=== PATIENT | female | born 1980 | race African-American/Black ===

== ENCOUNTER 2016-06-28 21:23 | Emergency (ER) ==
[2016-06-28] MEDS ORDERED: LABETALOL IV ONE (22:22)
--- NOTE | 2016-06-28 22:24 | ED EKG INTERP ---
EKG Interpretation - EKG Time of EKG reading by physician:: 21:40 EKG Read and Signed by:: Tristin Huffman EKG Interpretation (*Must complete 3 of following elements*): Abnormal Rate: 127 Rhythm: SR Heth: normal QRS: other (POSS LAE) IA Interval: normal ST Wave: normal Attestation - Scribe Verification/Attestation Scribe:: Jaylin Coulter Acting as Scribe for:: Tristin Huffman Scribe documention review:: This chart was documented by a scribe and accurately reflects the service the provider performed and the decisions made by the provider. Physician Attestation - Physician Attestation I, the provider, attest to the following statement:: Tristin Huffman Physician documentation Attestation:: This documentation recorded by the scribe accurately reflects the service I personally performed and the decisions made by me.
[2016-06-28 22:40] LABS: MANUAL DIFF NEEDED? NO
[2016-06-28 23:00] LABS: AGAP 12; ALBUMIN 3.9 g/dL (3.5-5.0); ALKALINE PHOSPHATASE 85 U/L (32-104); BUN 10 mg/dL (8-22); CALCIUM 9.3 mg/dL (8.8-10.2); CHLORIDE 97 mmol/L (98-107); CK PROFILE 56 U/L (24-173); COSMO 280; GOT 13 U/L (10-30); GPT 15 U/L (10-36); MAGNESIUM 1.9 mg/dL (1.5-2.7); POTASSIUM 3.5 mmol/L (3.5-5.1); SODIUM 134 mmol/L (136-145); TCO2 25 mmol/L (25-35); TOTAL PROTEIN 7.9 g/dL (6.3-8.3)
[2016-06-28 23:17] LABS: BASO% 0.1 % (0.0-0.8); EOS# 0.05 X1000 (0.0-0.7); EOS% 0.3 % (0.0-10.0); HEMATOCRIT 39.5 % (37.0-47.0); HEMOGLOBIN 13.3 g/dL (12.0-16.0); IMM GRAN# 0.03 X1000 (0.0-0.04); IMM GRAN% 0.2 % (0.0-0.5); LYMPH# 3.11 X1000 (1.2-3.4); LYMPH% 18.1 % (20.5-51.1); MCH 29.4 PG (27-31); MCHC 33.7 g/dL (33-37); MCV 87.4 FL (81-99); MPV 10.6 FL (7.4-10.4); NEUT% 74.3 % (42.2-75.2); PLT 269 X1000 (130-400); RBC 4.52 XMIL (4.2-5.4)
[2016-06-28 23:19] LABS: URINE SOURCE CLEAN CATCH
[2016-06-28 23:20] LABS: INR 1.01 (0.86-1.15); PROTIME 13.6 Seconds (12.1-15.5)
[2016-06-28 23:21] LABS: PTT PL 26.5 Seconds (22.6-43.9)
[2016-06-28 23:43] LABS: BILIRUBIN URINE NEGATIVE (NEGATIVE); BLOOD URINE 2+ (NEGATIVE); CLARITY CLEAR (CLEAR); COLOR YELLOW; LEUKOCYTES URINE 2+ (NEGATIVE); NITRITE URINE NEGATIVE (NEGATIVE); PH URINE 6.5; PROTEIN URINE 2+(100 mg/dL) mg/dL (NEGATIVE); SP GRAVITY URINE 1.015; URINE MICROSCOPIC NEEDED? YES; UROBILINOGEN URINE NORMAL
[2016-06-28] MEDS ORDERED: LABETALOL IV SCH (23:45)
[2016-06-28 23:47] LABS: URINE EPITHELIAL CELLS <10 /HPF (<10); URINE RBC 20-40 /HPF (<10); URINE WBC 20-40 /HPF (<10)
[2016-06-28 23:48] LABS: UR AMPHETAMINES QUAL NONE DETECTED (NONE DETECT); UR BARBITUATES QUAL NONE DETECTED (NONE DETECT); UR BENZODIAZEPIN QUAL NONE DETECTED (NONE DETECT); UR CANNABINOIDS QUAL NONE DETECTED (NONE DETECT); UR COCAINE QUAL NONE DETECTED (NONE DETECT); UR MDMA QUAL NONE DETECTED (NONE DETECT); UR METHADONE QUAL NONE DETECTED (NONE DETECT); UR METHAMPHETAMINE QUAL NONE DETECTED (NONE DETECT); UR OPIATES QUAL NONE DETECTED (NONE DETECT); UR OXYCODONE QUAL NONE DETECTED (NONE DETECT); UR PCP QUAL NONE DETECTED (NONE DETECT); UR TCA QUAL NONE DETECTED (NONE DETECT)
--- NOTE | 2016-06-29 00:08 | PROVIDER DOCUMENTATION ---
HPI-General Adult - General Chief Complaint: B/P Problems Stated Complaint: SORE THROAT,FACIAL SWELLING/H B/P Time Seen by Provider: 06/28/16 22:15 Source: patient Allergies/Adverse Reactions: Patient Allergies Allergy/AdvReac Type Severity Reaction Status Date / Time No Known Allergies Allergy Verified 06/28/16 21:32 Home Medications: Home Medication List Medication Instructions Recorded Confirmed Last Taken Type Glipizide [Glucotrol] 5 mg PO DAILY #0 tablet 03/31/13 06/28/16 Unknown Rx Lisinopril [Prinivil] 5 mg PO DAILY #0 tablet 03/31/13 06/28/16 Unknown Rx Metformin [Glucophage] 500 mg PO BID CC #0 tablet 03/31/13 06/28/16 Unknown Rx Metoprolol [Lopressor] 25 mg PO BID #60 tablet 03/31/13 06/28/16 Unknown Rx Sulfamethoxazole/Trimethoprim 2 each PO BID #40 tablet 06/29/16 Unknown Rx [Bactrim Ds Tablet] - History of Present Illness -Gen Adult Nature of Presenting Problems: PT IS A 36YOF PRESENTING TO THE ED C/O URI SYMPTOMS. PT STATES SHE HAS HAD A CRAWFORD , COUGH, CONGESTION, SORE THROAT AND DYSURIA WITH INCREASED FREQUENCY FOR ABOUT A WEEK NOW. PT DENIES FEVER BUT HAS BEEN ACHEY ALL OVER. PT IS A NON-COMPLIANT PT WITH HER BLOOD PRESSURE MEDICATIONS. PT IS HYPERTENSIVE UPON ARRIVAL. NO OTHER COMPLAINTS NOTED AT THIS TIME Location of Pain/Injury: reports: head, generalized Pain Radiation: reports: no radiation Quality of Pain: reports: aching Severity: reports: moderate Onset/Duration: reports: last week Timing: reports: still present Context/Activities at Onset: reports: light activity Modifying Factors: improves with: nothing Associated Symptoms: reports: cough, EENT symptoms, fatigue, fever/chills, headaches, malaise, sinus congestion/drainage, weakness. denies: chest pain, constipation, diaphoresis, dizziness, nausea, shortness of breath, pain with inspiration, vomiting Similar Symptoms Previously?: No Recently seen or treated by another doctor?: No Review of Systems - Adult - REVIEW OF SYSTEMS - ADULT Constitutional: reports: see HPI, chills, fatique. denies: fever Eyes: reports: no symptoms reported Ears, Nose, Mouth & Throat: reports: see HPI, sinus problem, throat pain. denies: mouth swelling Cardiovascular: reports: no symptoms reported Respiratory: reports: see HPI, cough, dyspnea on exertion. denies: shortness of breath, wheezing Gastrointestinal: reports: no symptoms reported Genitourinary: reports: see HPI, dysuria, frequency, urgency Musculoskeletal: reports: no symptoms reported Integumentary: reports: no symptoms reported Neurological: reports: see HPI, headache/migraines. denies: seizure, slurred speech, tremors Psychiatric: reports: no symptoms reported Endocrine: reports: no symptoms reported Hematologic/Lymphatic: reports: no symptoms reported Allergic/Immunologic: reports: no symptoms reported All Other Systems: Reviewed and Negative Past History - Adult - PAST MEDICAL HISTORY-ADULT Review of Records: reports: Old Records Reviewed, Nursing Assessment Review, Medications Reviewed, Social history reviewed & non-contributory. Major Childhood Illnesses: reports: denies history Cardiovascular: reports: denies history Respiratory: reports: denies history Gastrointestinal: reports: denies history Obstetrical/Gynecological: reports: denies history Genitourinary: reports: denies history Musculoskeletal: reports: denies history Neurological: reports: denies history Endocrine/Immune: reports: denies history Other Conditions: reports: denies history - IMMUNIZATION STATUS Childhood Immunizations: See Nurse Assessment Flu Vaccine: See Nurse Assessment - FAMILY HISTORY Family History: reviewed, not pertinent - SOCIAL HISTORY Smoking: denies, non-smoker Substance Use: none/never, denies Alcohol Use Frequency: never Living Situation: family Physical Exam-General - PHYSICAL EXAM-ADULT Initial Vital Signs Reviewed: Yes - CONSTITUTIONAL General Appearance: alert, moderate distress, obese. negative: appears well - EYES Eyes: PERRL/EOMI, pink conjunctivae, fundi clear, no AV nicking - HEAD, EARS, NOSE, MOUTH & THROAT HENMT: normocephalic/atraumatic, moist mucous membranes, TMs normal, pharynx normal, frontal tenderness, maxillary tenderness - NECK Neck: non-tender, full range of motion, supple, normal inspection - RESPIRATORY Respiratory: chest non-tender, lungs clear, normal breath sounds, no pleuratic chest pain, no respiratory distress, no accessory muscle use - CARDIOVASCULAR Cardiovascular: normal peripheral pulses, no edema, no gallop, no JVD, no murmur , tachycardia, other (HYPERTENSION) - GASTROINTESTINAL (ABDOMEN) Abdominal Exam: normal bowel sounds, non tender, soft, no organomegaly, no pulsatile mass - LYMPHATIC Lymphatic: no adenopathy - MUSCULOSKELETAL Back Exam: normal inspection, no CVA tenderness, no vertebral tenderness Extremity: normal range of motion, non-tender, normal gait, normal inspection, no pedal edema, no calf tenderness, normal capillary refill, pelvis stable - SKIN Integumentary: normal color, normal turgor, warm/dry - NEUROLOGIC Neurologic: dietary services manager II-XII nml as tested, grossly normal, no motor/sensory deficits - PSYCHIATRIC Psych/Mental Status: normal thought content, normal thought process, oriented x 3, anxious Progress - PLAN OF CARE/RESULTS Progress/Plan/Lab Results: Laboratory Tests 06/28/16 06/28/16 06/28/16 21:47 22:30 22:30 WBC RBC Hgb Hct MCV MCH MCHC RDW Std Deviation Plt Count MPV Immature Gran % (Auto) Neut % (Auto) Lymph % (Auto) [place] % (Auto) Eos % (Auto) Baso % (Auto) Immature Gran # (Auto) Neut # (Auto) Lymph # (Auto) [place] # (Auto) Eos # (Auto) Baso # (Auto) PT INR APTT (Factor Assay) Sodium 134 L Potassium 3.5 Chloride 97 L Carbon Dioxide 25 Anion Gap 12 BUN 10 Creatinine 0.7 Estimated GFR/1.73 m2 > 60 BUN/Creatinine Ratio 14 Glucose 320 H POC Glucose 287 H Calculated Osmolality 280 Calcium 9.3 Magnesium 1.9 Total Bilirubin 0.40 AST 13 ALT 15 Alkaline Phosphatase 85 Creatine Kinase 56 Troponin T < 0.010 [id number]-[id number] Pept Total Protein 7.9 Albumin 3.9 Globulin 4.0 Albumin/Globulin Ratio 1.0 Urine Source Urine Color Urine Clarity Urine pH Ur Specific [place] Urine Protein Urine Ketones Urine Blood Urine Nitrite Urine Bilirubin Urine Urobilinogen Urine Microscopic RBC Urine WBC Urine Microscopic WBC Ur Epithelial Cells Urine Bacteria Urine Glucose Urine Test Urine Opiates Screen Ur Oxycodone Screen Urine Methadone Screen Ur Barbituates Screen Ur Tricyclics Screen Ur Phencyclidine Scrn Ur Amphetamines Screen U Methamphetamines Scrn Urine MDMA Screen U Benzodiazepines Scrn Urine Cocaine Screen U Cannabinoids Screen Plasma/Serum Ethyl Alc 06/28/16 06/28/16 06/28/16 22:30 22:30 22:30 WBC 17.22 H RBC 4.52 Hgb 13.3 Hct 39.5 MCV 87.4 MCH 29.4 MCHC 33.7 RDW Std Deviation 12.7 Plt Count 269 MPV 10.6 H Immature Gran % (Auto) 0.2 Neut % (Auto) 74.3 Lymph % (Auto) 18.1 L [place] % (Auto) 7.0 Eos % (Auto) 0.3 Baso % (Auto) 0.1 Immature Gran # (Auto) 0.03 Neut # (Auto) 12.81 H Lymph # (Auto) 3.11 [place] # (Auto) 1.20 H Eos # (Auto) 0.05 Baso # (Auto) 0.02 PT 13.6 INR 1.01 APTT (Factor Assay) 26.5 Sodium Potassium Chloride Carbon Dioxide Anion Gap BUN Creatinine Estimated GFR/1.73 m2 BUN/Creatinine Ratio Glucose POC Glucose Calculated Osmolality Calcium Magnesium Total Bilirubin AST ALT Alkaline Phosphatase Creatine Kinase Troponin T [id number] Pept 303 H Total Protein Albumin Globulin Albumin/Globulin Ratio Urine Source Urine Color Urine Clarity Urine pH Ur Specific [place] Urine Protein Urine Ketones Urine Blood Urine Nitrite Urine Bilirubin Urine Urobilinogen Urine Microscopic RBC Urine WBC Urine Microscopic WBC Ur Epithelial Cells Urine Bacteria Urine Glucose Urine Test Urine Opiates Screen Ur Oxycodone Screen Urine Methadone Screen Ur Barbituates Screen Ur Tricyclics Screen Ur Phencyclidine Scrn Ur Amphetamines Screen U Methamphetamines Scrn Urine MDMA Screen U Benzodiazepines Scrn Urine Cocaine Screen U Cannabinoids Screen Plasma/Serum Ethyl Alc 06/28/16 06/28/16 06/28/16 22:30 22:59 22:59 WBC RBC Hgb Hct MCV MCH MCHC RDW Std Deviation Plt Count MPV Immature Gran % (Auto) Neut % (Auto) Lymph % (Auto) [place] % (Auto) Eos % (Auto) Baso % (Auto) Immature Gran # (Auto) Neut # (Auto) Lymph # (Auto) [place] # (Auto) Eos # (Auto) Baso # (Auto) PT INR APTT (Factor Assay) Sodium Potassium Chloride Carbon Dioxide Anion Gap BUN Creatinine Estimated GFR/1.73 m2 BUN/Creatinine Ratio Glucose POC Glucose Calculated Osmolality Calcium Magnesium Total Bilirubin AST ALT Alkaline Phosphatase Creatine Kinase Troponin T [id number] Pept Total Protein Albumin Globulin Albumin/Globulin Ratio Urine Source CLEAN CATCH Urine Color YELLOW Urine Clarity CLEAR Urine pH 6.5 Ur Specific [place] 1.015 Urine Protein 2+(100 mg/dL) A Urine Ketones TRACE Urine Blood 2+ A Urine Nitrite NEGATIVE Urine Bilirubin NEGATIVE Urine Urobilinogen NORMAL Urine Microscopic RBC 20-40 A Urine WBC 2+ A Urine Microscopic WBC 20-40 A Ur Epithelial Cells <10 Urine Bacteria 3+ Urine Glucose 3+(500 mg/dL) A Urine Test NEGATIVE Urine Opiates Screen Ur Oxycodone Screen Urine Methadone Screen Ur Barbituates Screen Ur Tricyclics Screen Ur Phencyclidine Scrn Ur Amphetamines Screen U Methamphetamines Scrn Urine MDMA Screen U Benzodiazepines Scrn Urine Cocaine Screen U Cannabinoids Screen Plasma/Serum Ethyl Alc 06/28/16 22:59 WBC RBC Hgb Hct MCV MCH MCHC RDW Std Deviation Plt Count MPV Immature Gran % (Auto) Neut % (Auto) Lymph % (Auto) [place] % (Auto) Eos % (Auto) Baso % (Auto) Immature Gran # (Auto) Neut # (Auto) Lymph # (Auto) [place] # (Auto) Eos # (Auto) Baso # (Auto) PT INR APTT (Factor Assay) Sodium Potassium Chloride Carbon Dioxide Anion Gap BUN Creatinine Estimated GFR/1.73 m2 BUN/Creatinine Ratio Glucose POC Glucose Calculated Osmolality Calcium Magnesium Total Bilirubin AST ALT Alkaline Phosphatase Creatine Kinase Troponin T [id number] Pept Total Protein Albumin Globulin Albumin/Globulin Ratio Urine Source Urine Color Urine Clarity Urine pH Ur Specific [place] Urine Protein Urine Ketones Urine Blood Urine Nitrite Urine Bilirubin Urine Urobilinogen Urine Microscopic RBC Urine WBC Urine Microscopic WBC Ur Epithelial Cells Urine Bacteria Urine Glucose Urine Test Urine Opiates Screen NONE DETECTED Ur Oxycodone Screen NONE DETECTED Urine Methadone Screen NONE DETECTED Ur Barbituates Screen NONE DETECTED Ur Tricyclics Screen NONE DETECTED Ur Phencyclidine Scrn NONE DETECTED Ur Amphetamines Screen NONE DETECTED U Methamphetamines Scrn NONE DETECTED Urine MDMA Screen NONE DETECTED U Benzodiazepines Scrn NONE DETECTED Urine Cocaine Screen NONE DETECTED U Cannabinoids Screen NONE DETECTED Plasma/Serum Ethyl Alc Orders Category Date Time Status Cardiac Monitoring DIRECTED Care 06/28/16 22:20 Active Fingerstick Blood Sugar [FSBS/Accucheck Result] NOW Care 06/28/16 21:42 Active Oxygen Therapy- ED Nursing DIRECTED Care 06/28/16 22:20 Active Saline Loc NOW Care 06/28/16 22:20 Active CHEST-2 VIEWS [RAD] Stat Exams 06/28/16 22:20 Taken HEAD W/O CONTRAST [CT] Stat Exams 06/28/16 22:22 Taken ALCOHOL BLOOD Stat Lab 06/28/16 22:30 Completed CBC WITH ELECTRONIC DIFF [HEME] Stat Lab 06/28/16 22:30 Completed CK PROFILE [SP CHEM] Stat Lab 06/28/16 22:30 Completed COMPREHENSIVE METABOLIC PANEL [CHEM] Stat Lab 06/28/16 22:30 Completed MAGNESIUM [CHEM] Stat Lab 06/28/16 22:30 Completed TEST-URINE [PREG] Stat Lab 06/28/16 22:59 Completed PRO B-NATRIURETIC PEPTIDE Stat Lab 06/28/16 22:30 Completed PROTIME WITH INR PL [COAG] Stat Lab 06/28/16 22:[address] [COAG] Stat Lab 06/28/16 22:30 Completed TROPONIN T Stat Lab 06/28/16 22:[address] [URINALYSIS] Stat Lab 06/28/16 22:59 Completed URINE DRUG SCREEN PL Stat Lab 06/28/16 22:59 Completed URINE MICROSCOPIC [URINALYSIS] Stat Lab 06/28/16 22:59 Completed Labetalol Med 06/28/16 23:45 Active 20 mg IV DIRECTED Labetalol Med 06/28/16 22:22 Discontinued 20 mg IV NOW ONE EKG [EKG] Stat Ther 06/28/16 21:38 Ordered EKG [EKG] Stat Ther 06/28/16 22:20 Ordered Vital Signs - 24 hr 06/28/16 06/28/16 21:26 21:35 Temperature 98.2 F Pulse Rate 129 H Respiratory 20 Rate Blood Pressure 208/131 209/128 O2 Sat by Pulse 97 Oximetry - XRAY 1 XRAY: Bilateral XRAY Study: Chest (NAD - SOUTH) - CT/MRI 1 CT Study: Head (SINUSITIS) Departure - Departure Time of Disposition Order: 00:07 DIAGNOSIS: Uncontrolled hypertension Sinusitis Qualifiers: Sinusitis location: unspecified location Chronicity: acute Recurrence: not specified as recurrent Qualified Code(s): J01.90 - Acute sinusitis, unspecified UTI (urinary tract infection) Qualifiers: Urinary tract infection type: site unspecified Hematuria presence: without hematuria Qualified Code(s): N39.0 - Urinary tract infection, site not specified Disposition: HOME 01 Certified Medical Emergency: Emergent Condition: Stable Additional Instructions: ED Follow Up Instructions: You have been treated by a care provider in the Emergency Department. These instructions are being provided to you so you can have an understanding of how to care for yourself upon discharge. Upon discharge from the Emergency Department, you are responsible for making arrangements for follow-up care by a physician of your choice. Take all prescribed medications as directed. Return to the Emergency Department immediately for any new or worsening symptoms. You may call the Physician Referral phone number at [phone] to obtain a list of Physicians who are taking new patients. Prescriptions: Sulfamethoxazole/Trimethoprim [Bactrim Ds Tablet] 2 each PO BID #40 tablet Referrals: None,PCP [Primary Care Provider] - Attestation - Scribe Verification/Attestation Scribe:: Jaylin Coulter (') Acting as Scribe for:: Tristin South Scribe documention review:: This chart was documented by a scribe and accurately reflects the service the provider performed and the decisions made by the provider. Physician Attestation - Physician Attestation I, the provider, attest to the following statement:: Tristin South Physician documentation Attestation:: This documentation recorded by the scribe accurately reflects the service I personally performed and the decisions made by me.
[2016-06-29 01:07] VITALS: BP 149/100
--- NOTE | 2016-06-29 06:31 | EKG Report ---
Test Performed on : 06/28/2016 9:39:33 PM Test Reason : chest pain Blood Pressure : / mmHG Vent. Rate : 127 BPM Atrial Rate : 127 BPM P-R Int : 132 ms QRS Dur : 068 ms QT Int : 322 ms P-R-T Axes : 061 053 053 degrees QTc Int : 467 ms Sinus tachycardia. Possible Left atrial enlargement Borderline ECG When compared with ECG of 29-MAR-2013 16:18, (Unconfirmed) No significant change was found Unconfirmed Result
--- NOTE | 2016-06-29 13:02 | Diag Imaging Result Document ---
PROCEDURE NAME: HEAD W/O CONTRAST - 06/28/2016 CT HEAD WITHOUT CONTRAST: TECHNIQUE: A dose reduction protocol was used. COMPARISON: No comparison exam. FINDINGS: There is no evidence of hemorrhage, mass effect, or midline shift. 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 There is no evidence of infarct, although acute infarcts may not be immediately visible. IMPRESSION: No visible acute intracranial abnormality. No hemorrhage or mass effect. A [facility] physician provided preliminary results at 12:00 a.m. on 06/29/2016.
--- NOTE | 2016-06-29 13:09 | Diag Imaging Result Document ---
PROCEDURE NAME: CHEST-2 VIEWS - 06/28/2016 CHEST, 2 VIEWS: COMPARISON: 03/29/2013. FINDINGS: Heart size appears upper normal and mildly increased compared to the previous exam. There is mild prominence of central markings which may be chronic or may relate to recurrent mild bronchitis. There is mild basilar linear atelectasis. There is no consolidation, pleural effusion, or pneumothorax identified. IMPRESSION: Mild increase in heart size, which appears upper normal. Questionable bronchitis. No evidence of pneumonia.
== END 2016-06-29 01:06 | disposition home or self-care (01) ==
LOC: P.ED 21:23
DX: J01.90 Acute sinusitis, unspecified (principal); N39.0 Urinary tract infection, site not specified; I10 Essential (primary) hypertension; R94.31 Abnormal electrocardiogram [ECG] [EKG]; J02.9 Acute pharyngitis, unspecified; R22.0 Localized swelling, mass and lump, head; R51 Headache; R05 Cough; R09.81 Nasal congestion; R30.0 Dysuria; R35.0 Frequency of micturition; R53.83 Other fatigue; R68.83 Chills (without fever); R53.81 Other malaise; R53.1 Weakness; R06.00 Dyspnea, unspecified; R39.15 Urgency of urination; J34.89 Other specified disorders of nose and nasal sinuses; R00.0 Tachycardia, unspecified; Z79.899 Other long term (current) drug therapy
CPT/HCPCS: 70450; 71020; 80053; 80305; 81001; 81025; 82550; 82948; 83735; 83880; 84484; 85025; 85610; 85730; 93005; 96374; 96376; G0480; 80320

== ENCOUNTER 2016-06-29 15:49 | Emergency (ER) | END 2016-06-29 16:22 | disposition left against medical advice (07) | LOC: ED 15:49 | DX: R22.0 Localized swelling, mass and lump, head (principal); R10.9 Unspecified abdominal pain; R03.0 Elevated blood-pressure reading, without diagnosis of hypertension ==

== ENCOUNTER 2019-04-25 19:06 | Inpatient (IN) ==
[2019-04-25] MEDS ORDERED: NITROGLYCERIN TOP ONE (19:16)
--- NOTE | 2019-04-25 19:29 | PROVIDER DOCUMENTATION ---
This chart was entered by Beatriz Fisher Scribe, acting as scribe for Ion Rodgers MD. HPI-Chest Pain - General Stated Complaint: sob Time Seen by Provider: 04/25/19 19:08 Source: patient, EMS Allergies/Adverse Reactions: Patient Allergies Allergy/AdvReac Type Severity Reaction Status Date / Time No Known Allergies Allergy Verified 04/25/19 20:32 Home Medications: Home Medication List Medication Instructions Recorded Confirmed Last Taken Type Metformin [Glucophage] 500 mg PO BID CC #60 tab 07/12/17 04/26/19 04/25/19 17:00 Rx Potassium Chloride E.r. [Klor-Con] 10 meq PO DAILY #30 tab 07/12/17 04/26/19 04/25/19 08:00 Rx Blood Sugar Diagnostic [Test 1 ea AC + HS #120 ea 07/13/17 04/25/19 Unknown Rx Strips] Blood-Glucose Meter [Blood Glucose 1 ea MC AC + HS #1 ea 07/13/17 04/25/19 Unknown Rx Meter] Furosemide [Lasix] 40 mg PO DAILY 08/16/17 04/26/19 04/25/19 08:00 History ATORVAstatin [Lipitor] 1 tab PO HS 04/26/19 04/26/19 Unknown History Amiodarone [Cordarone] 1 tab PO DAILY 04/26/19 04/26/19 Unknown History Glipizide E.r. [Glucotrol Xl] 5 mg PO BID 04/26/19 04/26/19 Unknown History Pantoprazole [Protonix] 40 mg PO DAILY@0700 04/26/19 04/26/19 Unknown History - History of Present Illness-CP Nature of Presenting Problem: pt is a 39yobf presenting w/ems to er w/cc cp and sob starting 2 days ago. pt has had 4 baby aspirin today at home and nitro enroute. pt has hx of [place] and stents last year, htn, and dm. follow by [facility] heart [facility]. pain is 7-8/10. Severity in ED: mild Onset/Duration: 2 days ago Timing: still present Context/Activities at Onset: reports: none Modifying Factors: improves with: nothing Associated Symptoms: reports: shortness of breath Nitro Today/Relief: 0.4 mg x 1, provided by EMS Aspirin Treatment Today: 81 mg x 4 Prior Chest Pain/Cardiac Workup: reports: heart attack, other (stents) Review of Systems - Adult - REVIEW OF SYSTEMS - ADULT Constitutional: reports: no symptoms reported. denies: fever, fatique, night sweats Eyes: reports: no symptoms reported Ears, Nose, Mouth & Throat: reports: no symptoms reported Cardiovascular: reports: see HPI, chest pain. denies: heart murmur, irregular heart rate, palpitations Respiratory: reports: see HPI, shortness of breath. denies: chronic cough, cough, pleurisy Gastrointestinal: reports: no symptoms reported Genitourinary: reports: no symptoms reported Musculoskeletal: reports: no symptoms reported Integumentary: reports: no symptoms reported Neurological: reports: no symptoms reported Psychiatric: reports: no symptoms reported Endocrine: reports: no symptoms reported Hematologic/Lymphatic: reports: no symptoms reported Allergic/Immunologic: reports: no symptoms reported All Other Systems: Reviewed and Negative Past History - Adult - PAST MEDICAL HISTORY-ADULT Review of Records: reports: Nursing Assessment Review, Medications Reviewed, Social history reviewed & non-contributory. Major Childhood Illnesses: reports: denies history Cardiovascular: reports: CHF, HTN, hyperlipidemia, [place] Respiratory: reports: denies history Gastrointestinal: reports: denies history Obstetrical/Gynecological: reports: denies history Genitourinary: reports: denies history Musculoskeletal: reports: denies history Neurological: reports: denies history Endocrine/Immune: reports: Diabetes Other Conditions: reports: denies history - PRIOR SURGERIES/PROCEDURES Surgical/Procedure History: reports: cardiac stent, hysterectomy, BTL - IMMUNIZATION STATUS Childhood Immunizations: See Nurse Assessment Flu Vaccine: See Nurse Assessment - FAMILY HISTORY Family History: reviewed, not pertinent - SOCIAL HISTORY Smoking: non-smoker Substance Use: none/never Physical Exam-General - PHYSICAL EXAM-ADULT Initial Vital Signs Reviewed: Yes - CONSTITUTIONAL General Appearance: appears well, alert, no apparent distress, obese. negative: lethargic, slow to respond, obtunded - EYES Eyes: PERRL/EOMI, pink conjunctivae - HEAD, EARS, NOSE, MOUTH & THROAT HENMT: normocephalic/atraumatic, moist mucous membranes, normal ENT inspection - NECK Neck: non-tender, full range of motion, supple, normal inspection - RESPIRATORY Respiratory: chest non-tender, no pleuratic chest pain, no respiratory distress, no accessory muscle use, decreased breath sounds (dminished), rales (basular bilat). negative: lungs clear, normal breath sounds, accessory muscle use, crackles, stridor, wheezing - CARDIOVASCULAR Cardiovascular: normal peripheral pulses, regular rate, rhythm, no gallop, no JVD, no murmur. negative: no edema, bradycardia, tachycardia, extra beats - GASTROINTESTINAL (ABDOMEN) Abdominal Exam: normal bowel sounds, non tender, soft - MUSCULOSKELETAL Back Exam: normal inspection Extremity: normal range of motion, non-tender, normal inspection, no pedal edema , no calf tenderness, normal capillary refill, pelvis stable, swelling (in bilat fingertips). negative: deformity, erythema, pedal edema, slow capillary refill - SKIN Integumentary: normal color, normal turgor, warm/dry - NEUROLOGIC Neurologic: visitor services assistant II-XII nml as tested, grossly normal, no motor/sensory deficits - PSYCHIATRIC Psych/Mental Status: normal mood/affect, normal thought content, normal thought process, oriented x 3 Progress - PLAN OF CARE/RESULTS Progress/Plan/Lab Results: Orders Category Date Time Status Admit - [facility] Routine AdmDCTranf 04/25/19 21:42 Active Activity - Strict Bedrest ORDERED Care 04/25/19 21:42 Completed Call Admitting on Arrival AT ADMISSION Care 04/25/19 21:44 Completed Cardiac Monitoring DIRECTED Care 04/25/19 19:17 Completed FSBS/Accucheck Result Q1H Care 04/25/19 20:48 Completed Resuscitation Status Routine Care 04/25/19 21:42 Ordered Vital Signs Order Q 4-HR ASSESS Care 04/25/19 21:42 Completed Z-Document. for Tele Applied ORDERED Care 04/25/19 21:44 Completed CHEST-PORTABLE [RAD] Stat Exams 04/25/19 19:53 Completed BLOOD CULTURE [BLDCUL] Stat Lab 04/25/19 21:05 Results CBC WITH ELECTRONIC DIFF [HEME] Stat Lab 04/25/19 19:45 Completed CK PROFILE [SP CHEM] Stat Lab 04/25/19 19:45 Completed CMP [COMPREHENSIVE METABOLIC PANEL] [CHEM] Stat Lab 04/25/19 19:45 Completed LACTATE, PLASMA [CHEM] Stat Lab 04/25/19 21:05 Completed PT [PROTIME WITH INR] [COAG] Stat Lab 04/25/19 19:45 Completed TROPONIN T Q4H Lab 04/25/19 21:05 Completed TROPONIN T Q4H Lab 04/26/19 03:17 Completed TROPONIN T Q4H Lab 04/26/19 06:24 Completed TROPONIN T Stat Lab 04/25/19 19:45 Completed bnp [PRO B-NATRIURETIC PEPTIDE] Stat Lab 04/25/19 19:45 Completed Azithromycin 500 mg/Ns [Zithromax 500 mg/Ns] Med 04/25/19 20:49 Discontinued 500 mg in 250 ml IV NOW Azithromycin 500 mg/Ns [Zithromax 500 mg/Ns] Med 04/26/19 22:00 Active 500 mg in 250 ml IV Q24H CefTRIAXONE [Rocephin] 1 gm Med 04/25/19 20:48 Discontinued 0.9% Sodium Chloride Inj [Ns] 50 ml IV NOW CefTRIAXONE [Rocephin] 1 gm Med 04/26/19 21:00 Active 0.9% Sodium Chloride Inj [Ns] 50 ml IV Q24H Furosemide [Lasix] Med 04/25/19 22:00 Active 40 mg IV Q12H Insulin Human Regular ([place] [Humulin R ([place])] Med 04/25/19 21:13 Discontinued 15 units .ROUTE .STK-MED ONE Insulin Human Regular ([place] [Humulin R ([place])] Med 04/25/19 21:48 Active See Protocol SUBQ PRN PRN Insulin Human Regular [Humulin R] Med 04/25/19 20:47 Discontinued 15 unit IV NOW ONE Morphine Med 04/25/19 21:42 Active 2 mg IV Q2H PRN PRN Nitroglycerin Med 04/25/19 19:16 Discontinued 1 inch TOP NOW ONE Ondansetron Odt [Zofran Odt] Med 04/25/19 21:42 Active 4 mg PO Q6H PRN PRN Potassium Chloride E.r. [Klor-Con] Med 04/25/19 20:47 Discontinued 40 meq PO NOW ONE Oxygen Device Routine Oth 04/25/19 21:44 Completed Telemetry [OM.EQ] Routine Oth 04/25/19 21:42 Active EKG [EKG] Stat Ther 04/25/19 19:17 Draft Transfer/Admit Order [TRANSFER] Routine Transfer 04/25/19 21:47 Completed Result Diagrams: 04/25/19 19:45 04/26/19 09:50 - XRAY 1 XRAY Study: Chest Impression: Abnormal, See EMR Report (EXAM: CHEST-PORTABLE 04/25/2019 HISTORY: cough,sob TECHNIQUE: Erect AP portable at 2006 COMMENT: There are sternotomy wires. There is ill-defined alveolar opacity over the right lower lobe which has diminished somewhat since 08/25/2017. IMPRESSION: Right lower lobe pneumonia. Electronically signed by Santiago Putnam 04/25/2019 8:22 PM) Departure - Departure Date of Disposition Decision: 04/26/19 Time of Disposition Decision: 07:32 DIAGNOSIS: RLL pneumonia Qualifiers: Pneumonia type: due to unspecified organism Qualified Code(s): J18.1 - Lobar pneumonia, unspecified organism Uncontrolled diabetes mellitus Qualifiers: Diabetes mellitus type: other specified (including QUETA) Glycemic state: with hyperglycemia Qualified Code(s): E13.65 - Other specified diabetes mellitus with hyperglycemia Chest pain Qualifiers: Chest pain type: unspecified Qualified Code(s): R07.9 - Chest pain, unspecified Disposition: ADMITTED INPATIENT 09 Certified Medical Emergency: Emergent Condition: Stable - Critical Care Note This patient required my direct & personal management of CC.: No Attestation - Physician/ MEGGAN Attestation Patient care was provided by Advanced Practice Provider:: No The physician spent face to face time with patient:: Yes Advanced Practice Provider documentation review:: Supervising physician onsite and consulted in the evaluation and care of this patient. The physician did have a face to face encounter with the patient. This chart was documented by the indicated scribe, (Beatriz Fisher Scribe) and accurately reflects the services I performed and decisions made by me, Ion Rodgers MD, as attested by the provider's signature.
[2019-04-25 20:00] LABS: BASO# 0.01 X1000 (0.0-0.2); BASO% 0.1 % (0.0-0.8); HEMATOCRIT 37.3 % (37.0-47.0); IMM GRAN# 0.04 X1000 (0.0-0.04); IMM GRAN% 0.3 % (0.0-0.5); LYMPH# 0.93 X1000 (1.2-3.4); LYMPH% 6.9 % (20.5-51.1); MCH 29.6 PG (27-31); MCHC 32.2 g/dL (33-37); MCV 91.9 FL (81-99); MONO# 0.86 X1000 (0.11-0.59); MONO% 6.4 % (1.7-9.3); MPV 11.5 FL (7.4-10.4); NEUT# 11.68 X1000 (1.4-6.5); NEUT% 86.3 % (42.2-75.2); PLT 194 X1000 (130-400); RBC 4.06 XMIL (4.2-5.4); RDW 12.9 % (11.5-14.5); WBC 13.52 X1000 (4.8-10.8)
[2019-04-25 20:25] LABS: INR 0.94
--- NOTE | 2019-04-25 20:25 | Diag Imaging Result Doc PS360 ---
EXAM: CHEST-PORTABLE 04/25/2019 HISTORY: cough,sob TECHNIQUE: Erect AP portable at 2006 COMMENT: There are sternotomy wires. There is ill-defined alveolar opacity over the right lower lobe which has diminished somewhat since 08/25/2017. IMPRESSION: Right lower lobe pneumonia. Electronically signed by Santiago Putnam 04/25/2019 8:22 PM
[2019-04-25 20:34] LABS: ALBUMIN 3.3 g/dL (3.5-5.0); CALCIUM 8.2 mg/dL (8.8-10.2); CREATININE 1.3 mg/dL (0.5-0.9); POTASSIUM 3.3 mmol/L (3.5-5.1); TOTAL BILIRUBIN 0.4 mg/dL (0.20-1.00); TOTAL PROTEIN 7.4 g/dL (6.3-8.3)
[2019-04-25] MEDS ORDERED: HUMULIN R IV ONE (20:47)
[2019-04-25] MEDS ORDERED: KLOR-CON PO ONE (20:47)
[2019-04-25] MEDS ORDERED: ROCEPHIN 1 GM in NS 50 ML IV ONE (20:48)
[2019-04-25] MEDS ORDERED: ZITHROMAX 500 MG/NS 500 MG/250 ML IVPB IV ONE (20:49)
[2019-04-25] MEDS ORDERED: HUMULIN R (PARKWAY) ONE (21:13)
[2019-04-25] MEDS ORDERED: ZOFRAN ODT PO PRN (21:42)
[2019-04-25] MEDS: LASIX IV SCH (23:44)
--- NOTE | 2019-04-26 02:36 | EKG Report ---
Test Performed on : 04/25/2019 7:32:15 PM Test Reason : pain Blood Pressure : / mmHG Vent. Rate : 119 BPM Atrial Rate : 119 BPM P-R Int : 132 ms QRS Dur : 088 ms QT Int : 272 ms P-R-T Axes : 108 -24 066 degrees QTc Int : [address] & T wave abnormality, consider inferior ischemia Abnormal ECG When compared with ECG of 25-AUG-2017 02:06, fusion complexes are no longer present premature ventricular complexes. are no longer present ST less depressed in Anterolateral leads T wave inversion now evident in Inferior leads Nonspecific T wave abnormality, worse in Anterolateral leads Unconfirmed Result
[2019-04-26] MEDS ORDERED: PNEUMOVAX 23 IM ONE (08:18)
[2019-04-26] MEDS ORDERED: FLU VACCINE IM ONE (08:18)
--- NOTE | 2019-04-26 10:02 | EKG Report ---
Test Performed on : 04/26/2019 09:50:09 AM Test Reason : CP Blood Pressure : / mmHG Vent. Rate : 118 BPM Atrial Rate : 118 BPM P-R Int : 152 ms QRS Dur : 074 ms QT Int : 332 ms P-R-T Axes : 045 -61 085 degrees QTc Int : 465 ms Sinus tachycardia. Left axis deviation Nonspecific ST and T wave abnormality Abnormal ECG When compared with ECG of 25-APR-2019 19:32, (Unconfirmed) No significant change was found Unconfirmed Result
[2019-04-26 10:27] LABS: ALBUMIN 3.3 g/dL (3.5-5.0); CALCIUM 8.5 mg/dL (8.8-10.2); CREATININE 1.5 mg/dL (0.5-0.9); PHOSPHORUS 2.6 mg/dL (2.7-4.5)
[2019-04-26] MEDS: LASIX IV SCH ×2 (10:37→21:13)
[2019-04-26] MEDS: MORPHINE IV PRN (10:37)
[2019-04-26] MEDS: DUONEB (A & A) INH PRN ×2 (12:05→15:25)
[2019-04-26] MEDS: HUMULIN R (PARKWAY) SUBQ PRN ×2 (12:39→15:01)
--- NOTE | 2019-04-26 14:33 | HISTORY AND PHYSICAL ---
CHIEF COMPLAINT: Left-sided chest pain, shortness of breath and cough, along with bilateral upper and lower extremity edema. HISTORY OF PRESENT ILLNESS: This is a 39-year-old female with a prior history of systolic congestive heart failure, hypertension, diabetes, and morbid obesity. She presents to the emergency room complaining of shortness of breath, cough, congestion, along with a productive cough with white secretions. She states this started about 48 hours prior. She denied any orthopnea or PND. Over the last 3 to 4 days she has noticed that she has had edema to all 4 extremities. She does feel she may have had a little extra salt intake over the holidays. PAST MEDICAL HISTORY: Systolic congestive heart failure with an ejection fraction of 46% in August 2017, hypertension, diabetes mellitus, morbid obesity. She had CAD with an AL, having found to have an occluded RCA. This was in 2018, with the initial plan to treat her medically, and ultimately she ended up getting a stent. PAST SURGICAL HISTORY: Tubal ligation. SOCIAL HISTORY: She lives with family members. Denies alcohol, tobacco, or illicit drug use. ALLERGIES: No known drug allergies. HOME MEDICATIONS: A list will be obtained by the nursing staff, and once verified, reviewed and restarted as appropriate. REVIEW OF SYSTEMS: Discussed with the patient with pertinent positives stated in the HPI. She denied any syncope or dizziness, any palpitations, any PND or orthopnea, any nausea, vomiting, diarrhea, constipation, black or bloody vomitus or stools, any hematuria, dysuria, frequency or urgency. PHYSICAL EXAMINATION: GENERAL: This is a 39-year-old female who is sitting up on the bed in no distress. VITAL SIGNS: Blood pressure is 109/80 with a heart rate of 86, respirations are 16, temperature is 98.2 degrees, with O2 saturations of 99% on 2 liters nasal cannula. EYES: Pupils are equal, round, react to light. EOMs are intact. Sclerae are anicteric. HEENT: Head is normocephalic, atraumatic. Mucous membranes are moist. NECK: Supple with trachea midline. CARDIOVASCULAR: Regular rate and rhythm. S1 and S2 appreciated. She has edema noted to all 4 extremities; it is just trace. Calves are nontender bilateral with peripheral pulses palpable x4 extremities. PULMONARY: Breath sounds are diminished throughout. Chest rises and falls symmetrically with respiration. Chest wall is nontender to palpation. GASTROINTESTINAL: Abdomen is soft, nontender, nondistended with bowel sounds in all 4 quadrants. NEUROLOGIC: She is alert and oriented x3. SKIN: Warm and dry. LABORATORY DATA: WBC is 13 with hemoglobin 12, hematocrit 37.3, and platelets of 194,000. Sodium 127, potassium 3.3, BUN 6, creatinine 1.3 with a glucose of 567. Troponin 0.079, 0.078, 0.082, 0.061. Her proBNP is 1229. Chest x-ray revealed right lower lobe pneumonia EKG revealed sinus tachycardia at a rate of 117. ASSESSMENT AND PLAN: 1. Right lower lobe pneumonia. Blood cultures have been obtained. Antibiotic coverage of Rocephin and azithromycin. Incentive spirometer every 4 hours. Breathing treatment, DuoNeb every 4 hours. 2. Leukocytosis secondary to right lower lobe pneumonia. We will trend labs daily. Antibiotics as stated above. 3. Hyponatremia. Repeat her labs and treat accordingly. 4. Hypokalemia. Repeat labs and treat as appropriate. 5. Acute kidney injury. It looks like her baseline creatinine has been 1.2 in August 2017 and 1.9 in January 2018. We will repeat labs today. We will hold any renal toxic medications and renal dose labs as appropriate. 6. Diabetes mellitus type 2. Pattern blood glucose with sliding scale insulin, and we will review her home medications and treat as appropriate. 7. Plan was discussed with Dr. Andrade. Further treatments pending hospital course. Dictated by MAICOL Olvera for Ned Andrade MD cc: MAICOL Olvera MD
[2019-04-26] MEDS: LANTUS INSULIN SUBQ SCH (16:37)
--- NOTE | 2019-04-26 20:30 | ECHO REPORT ---
ORDER DATE: 04/26/2019 INDICATION: Coronary heart disease. Chest pain. Dyspnea. M-MODE MEASUREMENTS: Left ventricle end diastole: 3.6. Left ventricle end systole: 2.7. Posterior wall: 1.2. Interventricular septum: 1.4. Left atrium: 3.8. Aortic diameter: 3.4. SUMMARY OF 2-DIMENSIONAL IMAGIN. The study is difficult. The patient is very dyspneic and not very cooperative. The left ventricular chamber is properly at the upper limits of normal. The left ventricular systolic function is probably normal, visually appears to be in the order of 60%. The patient is tachycardic. 2. The mitral valve is a bioprosthetic valve. Maximum gradient across this valve is 13 mmHg. The mean gradient is 7 mmHg. 3. The pulse wave (PW) Doppler of mitral inflow shows "normal" E/A ratio with a short deceleration time. That indicates elevation of left atrial pressure. 4. Tissue Doppler of septal and lateral mitral annulus averages 5 cm. Diastolic dysfunction is probably be present. The inferior vena cava did not appear to be significantly dilated. 5. Tricuspid valve shows mild degree of regurgitation. 6. Pulmonary pressure is estimated at 37 to 42 mmHg. 7. The aortic valve is morphologically normal. Color flow mapping unremarkable. 8. The pulmonic valve is grossly unremarkable 9. There is no pericardial effusion, mass, and no thrombus. 10.The left atrium appears to be normal. 11.The right-sided chambers do not appear to be dilated. Again, the study was difficult and all the measurements and the estimation of pulmonary systolic pressure is potentially equivocal. Clinical correlation is recommended. cc: MD Jacquelyn Calderon CRNP MTDD
--- NOTE | 2019-04-26 20:47 | PROGRESS NOTE ---
DATE: 04/26/2019 SUBJECTIVE: She came in with shortness of breath and cough. She was found to have a right lower lobe pneumonia. She is still coughing. She has a history of CABG. It looks like she also has a paronychia, I think, on the right hand on the 3rd DIP joint. We will admit her for antibiotics and continue to follow closely. Diabetes, we will continue her regular medications and follow. cc: Ned Andrade MD
[2019-04-26] MEDS: ROCEPHIN 1 GM in NS 50 ML IV SCH (21:12)
[2019-04-26] MEDS: LIPITOR PO SCH (21:13)
[2019-04-26] MEDS: GLUCOTROL XL PO SCH (21:13)
[2019-04-26] MEDS: ZITHROMAX 500 MG/NS 500 MG/250 ML IVPB IV SCH (22:00)
[2019-04-27] MEDS: PROTONIX PO SCH ×2 (05:44→06:04)
[2019-04-27 06:52] LABS: HEMATOCRIT 36.8 % (37.0-47.0); HEMOGLOBIN 11.5 g/dL (12.0-16.0); MCH 29.1 PG (27-31); MCHC 31.3 g/dL (33-37); MCV 93.2 FL (81-99); MPV 10.8 FL (7.4-10.4); RBC 3.95 XMIL (4.2-5.4); RDW 12.7 % (11.5-14.5); WBC 14.04 X1000 (4.8-10.8)
[2019-04-27 07:26] LABS: CALCIUM 8.4 mg/dL (8.8-10.2); CREATININE 1.4 mg/dL (0.5-0.9); POTASSIUM 3.4 mmol/L (3.5-5.1); TOTAL BILIRUBIN 0.4 mg/dL (0.20-1.00); TOTAL PROTEIN 7.1 g/dL (6.3-8.3)
[2019-04-27] MEDS: DUONEB (A & A) INH PRN ×2 (07:43→15:24)
[2019-04-27] MEDS ORDERED: LASIX PO SCH (09:00)
[2019-04-27] MEDS: GLUCOPHAGE PO SCH ×2 (09:54→18:36)
[2019-04-27] MEDS: LASIX IV SCH (09:54)
[2019-04-27] MEDS: GLUCOTROL XL PO SCH ×2 (09:54→20:29)
[2019-04-27] MEDS: KLOR-CON PO SCH (09:54)
[2019-04-27] MEDS: CORDARONE PO SCH (09:54)
[2019-04-27] MEDS: LANTUS INSULIN SUBQ SCH (09:55)
[2019-04-27] MEDS: LASIX PO SCH (09:55)
[2019-04-27] MEDS: MORPHINE IV PRN ×2 (10:09→21:00)
--- NOTE | 2019-04-27 11:45 | GENERAL SURGERY CONSULTATION ---
DATE: 04/27/2019 REQUESTING PHYSICIAN: Dr. Andrade REASON FOR CONSULT: Concerning paronychia on the left side of the 3rd digit. HISTORY OF PRESENT ILLNESS: A 39-year-old female with a prior history of systolic congestive heart failure, hypertension, diabetes, and morbid obesity who presented to the emergency department with shortness of breath, cough, congestion and productive cough. She has been admitted and found to have right lower lobe pneumonia. She is being treated by the hospitalist for this with azithromycin and Rocephin. It was also noted that she had what looks like a paronychia on the left 3rd digit. I was asked to weigh an opinion on that. She reports some tenderness and says it has been going on for 3 to 4 days. PAST MEDICAL HISTORY: 1. Systolic congestive heart failure with ejection fraction of 46%. 2. Hypertension. 3. Diabetes mellitus. 4. Morbid obesity with a BMI of 42. 5. Coronary artery disease with history of [place]. PAST SURGERY HISTORY: 1. Includes stenting, coronary artery stenting. 2. Tubal ligation. SOCIAL HISTORY: Lives with family. Denies alcohol, tobacco, or illicit drugs. ALLERGIES: None. HOME MEDICATIONS: Reviewed and MAR reviewed. FAMILY HISTORY: Reviewed with the patient and noncontributory. REVIEW OF SYSTEMS: Full 14 systems reviewed and negative except as specified in HPI. PHYSICAL EXAMINATION: Vital Signs: Patient is currently temperature 99.7 degrees, pulse is recorded at 125, blood pressure 150/83. General: No acute distress. Resting comfortably. -[place] female looks stated age. HEENT: Normocephalic, atraumatic. Pupils equal, round, reactive to light. Mucous membranes moist. Oropharynx benign. Neck: Supple. Trachea midline. Cardiovascular: Tachycardic. Lungs: Grossly clear. Abdomen: Soft, morbidly obese but nontender. Extremities: In the left 3rd digit around the nail, there is an area of induration but no fluctuance. Difficult to see if there is any erythema. It is tender to palpation. Vascular: All extremities perfused. Neurologic: Grossly intact. Skin: As noted above. LABORATORY: White blood count 13. Remainder of labs reviewed. ASSESSMENT/PLAN: 39-year-old female with a right lower lobe pneumonia and paronychia: 1. Right lower lobe pneumonia. At this time, agree with antibiotics. We will defer to the hospitalist. 2. Paronychia. At this time, we will put warm compresses to the area and continue with the antibiotics. I do not see anything drainable at this point, but it may develop and if it does, we can drain it at the bedside with a digital block. 3. Tachycardia. At this time defer to the hospitalist. cc: Jae Ariza MD MTDD
[2019-04-27] MEDS: ROCEPHIN 1 GM in NS 50 ML IV SCH (20:29)
[2019-04-27] MEDS: LIPITOR PO SCH (20:29)
[2019-04-27] MEDS: ROBITUSSIN-DM PO PRN (20:58)
--- NOTE | 2019-04-27 21:33 | PROGRESS NOTE ---
DATE: 04/27/2019 SUBJECTIVE: The patient notes that although she is not back to normal, she is feeling a lot better, less cough, less congestion. Still having some wheezing and shortness of breath. PHYSICAL EXAMINATION: Temperature 99.2 degrees, pulse 113 to 124, respiratory 22, BP 126/86.General: Patient is pleasant. She is in mild respiratory distress. HEENT: Normocephalic. Neck: Supple. Cardiovascular: Regular rate. Chest: Positive wheezing but improved. Good air movement. Abdomen: Soft, nondistended. Extremities: Moves all extremities. No edema. Neurologic: No focal changes. Skin: Warm and dry. No rashes. ASSESSMENT: 1. Right lower lobe pneumonia. 2. Leukocytosis. 3. Hyponatremia. 4. Hypokalemia. 5. Acute kidney injury. 6. Diabetes type 2. PLAN: We are going to continue the patient in the hospital. Continue Rocephin and azithromycin. We are going to continue her Lasix at 40 IV q.12 a day, decrease to 40 IV daily tomorrow. Hopefully, if she improves, she may be able to discharge tomorrow, but I would expect on . cc: Yung Marquez MD
[2019-04-28] MEDS: ZITHROMAX 500 MG/NS 500 MG/250 ML IVPB IV SCH ×2 (00:43→21:23)
[2019-04-28] MEDS: HUMULIN R (PARKWAY) SUBQ PRN ×2 (07:17→12:04)
[2019-04-28] MEDS: DUONEB (A & A) INH PRN ×4 (08:02→19:52)
[2019-04-28] MEDS: PROTONIX PO SCH (09:52)
[2019-04-28] MEDS: LASIX PO SCH (09:52)
[2019-04-28] MEDS: GLUCOPHAGE PO SCH ×2 (09:53→16:39)
[2019-04-28] MEDS: GLUCOTROL XL PO SCH ×2 (09:53→20:43)
[2019-04-28] MEDS: LANTUS INSULIN SUBQ SCH (09:53)
[2019-04-28] MEDS: CORDARONE PO SCH (09:53)
[2019-04-28] MEDS: KLOR-CON PO SCH (09:54)
[2019-04-28] MEDS: MORPHINE IV PRN ×3 (10:51→20:43)
[2019-04-28] MEDS: ROCEPHIN 1 GM in NS 50 ML IV SCH (20:44)
[2019-04-28] MEDS: ROBITUSSIN-DM PO PRN (20:44)
[2019-04-28] MEDS: LIPITOR PO SCH (20:44)
--- NOTE | 2019-04-29 | GENERAL SURGERY PROGRESS NOTE ---
DATE: 04/28/2019 SUBJECTIVE: The patient is still with significant pain in her finger, swelling has gotten worse. OBJECTIVE: Vital Signs: The patient is currently afebrile. Her vital signs are stable. General: No acute distress. HEENT: Normocephalic, atraumatic. Pupils are equal, round, and reactive to light. Mucous membranes are moist. Oropharynx is benign. Neck: Supple. Trachea midline. Cardiovascular: Regular rate and rhythm. Lungs: Grossly clear. Abdomen: Soft, nontender, nondistended. Extremities: Paronychia to the left 3rd digit still present, now with fluctuance. There is significantly more swelling and erythema noted to the finger. At this time vascular all extremities perfused. Neurologic: Grossly intact. Skin: As noted above. LABORATORY DATA: None this morning as of yet. ASSESSMENT AND PLAN: A 39-year-old female with paronychia on the left 3rd digit. Left 3rd digit paronychia. At this time we will plan on bedside drainage. Please see dictation of operative note. cc: Jae Ariza MD
[2019-04-29] MEDS: DUONEB (A & A) INH PRN ×6 (00:05→20:12)
--- NOTE | 2019-04-29 00:09 | OPERATIVE NOTE ---
PROCEDURE DATE: 04/28/2019 PREOPERATIVE DIAGNOSIS: Paronychia of the left 3rd digit. POSTOPERATIVE DIAGNOSIS: Paronychia of the left 3rd digit. PROCEDURE PERFORMED: Incision and drainage of left 3rd digit paronychia. SURGEON: Jae Ariza MD. DIRECTOR BUSINESS SYSTEMS: None. ANESTHESIA: None. FINDINGS: Significant amount of purulence encountered. BRIEF HISTORY: A 39-year-old female with paronychia of the left 3rd digit that has continued to worsen and became more fluctuant. I felt that she would benefit from drainage. The risks, benefits and alternatives were discussed. All questions were answered. DESCRIPTION OF PROCEDURE: After informed consent was obtained the patient remained in her bed. We used alcohol to prep the 5th finger, using an 18-gauge needle I was able to unroof the paronychia and drain a significant amount of purulence, which we compressed out. She had relief of her discomfort in her finger. The nurse placed a dressing on top. The patient tolerated the procedure well. cc: Jae Ariza MD
--- NOTE | 2019-04-29 01:20 | PROGRESS NOTE ---
DATE: 04/28/2019 SUBJECTIVE: The patient notes that she is feeling better. She is still having some cough and shortness of breath. No real wheezing. She states that she did not sleep better last night. Denies any nausea or fever. OBJECTIVE: Temperature 98 degrees, pulse 118, blood pressure 116/53.General: The patient is very pleasant. She is sitting in the bed. She is sleeping comfortably and easily awakened. HEENT: Normocephalic. Neck supple. Cardiovascular: Tachycardia, no murmurs. Chest: Decreased but equal breath sounds. Minimal wheezing. Abdomen soft, obese, nondistended. Extremities: Moves all extremities. ASSESSMENT: 1. Right lower lobe pneumonia. 2. Leukocytosis. 3. Hypoxic respiratory failure, acute. 4. Hyponatremia. 5. Hypokalemia. 6. Chronic renal failure, baseline. PLAN: We are going to continue the patient in the hospital. Continue Lasix IV daily. Continue azithromycin and Rocephin. Hopefully tomorrow she can convert to p.o. Lasix and discharge home. cc: Yung Marquez MD
[2019-04-29] MEDS: MORPHINE IV PRN ×4 (05:13→23:12)
[2019-04-29 06:13] LABS: HEMATOCRIT 34.4 % (37.0-47.0); HEMOGLOBIN 10.5 g/dL (12.0-16.0); MCH 28.6 PG (27-31); MCHC 30.5 g/dL (33-37); MCV 93.7 FL (81-99); RBC 3.67 XMIL (4.2-5.4); RDW 12.8 % (11.5-14.5); WBC 18.01 X1000 (4.8-10.8)
[2019-04-29 06:24] LABS: CALCIUM 8.5 mg/dL (8.8-10.2); CREATININE 1.4 mg/dL (0.5-0.9); POTASSIUM 3.4 mmol/L (3.5-5.1)
[2019-04-29] MEDS ORDERED: D50W SYRINGE IV ONE (10:13)
[2019-04-29] MEDS: GLUCOPHAGE PO SCH ×2 (10:23→18:48)
[2019-04-29] MEDS: CORDARONE PO SCH (11:02)
[2019-04-29] MEDS: PROTONIX PO SCH (11:02)
[2019-04-29] MEDS: ZITHROMAX PO SCH (11:02)
[2019-04-29] MEDS: LASIX PO SCH (11:02)
[2019-04-29] MEDS: KLOR-CON PO SCH (12:12)
--- NOTE | 2019-04-29 13:47 | GENERAL SURGERY PROGRESS NOTE ---
DATE: 04/29/2019 SUBJECTIVE: The patient seems to be doing better this morning. Says her finger feels a whole lot better. OBJECTIVE: Vital Signs: The patient is currently afebrile. Her vital signs are stable. General Examination: No acute distress. HEENT: Normocephalic, atraumatic. Pupils equal, round, reactive to light. Mucous membranes moist. Oropharynx benign. Neck: Supple. Trachea midline. Cardiovascular: Regular rate and rhythm. Lungs: Grossly clear. Abdomen: Soft, nontender, nondistended. Extremities: Left 3rd digit on the hand appears to be improving. There is a dressing intact. There is still some swelling associated with it. Vascular: All extremities perfused. Neurologic: Grossly intact. Skin: As noted above. Laboratory: White blood cell count is 18. Remainder of labs reviewed. ASSESSMENT AND PLAN: A 39-year-old female status post incision and drainage of left 3rd digit paronychia. Status post drainage. At this time, we will continue local wound care. Continue antibiotics. We will continue to follow while she is in the hospital. cc: Jae Ariza MD
[2019-04-29] MEDS: ROCEPHIN 1 GM in NS 50 ML IV SCH (21:01)
[2019-04-29] MEDS: LIPITOR PO SCH (21:02)
[2019-04-29] MEDS: ROBITUSSIN-DM PO PRN (21:12)
--- NOTE | 2019-04-30 00:41 | PROGRESS NOTE ---
DATE: 04/29/2019 SUBJECTIVE: Patient states she feels terrible this morning. She had a blood sugar in the upper 40s. Denies any current fevers, chills. Denies cough. Denies palpitations. PHYSICAL EXAMINATION: Temperature 99 degrees, pulse 110, respiratory rate 18, BP 116/53. General: The patient is pleasant, blood sugars are improved. HEENT: Normocephalic. Neck: Supple. Cardiovascular: Regular rate. Chest: Clear. Abdomen: Soft. Extremities: Moves all extremities. ASSESSMENT AND PLAN: 1. Right lower lobe pneumonia. Continue Rocephin azithromycin. 2. Pulmonary edema. Continue Lasix. We will change to p.o.. 3. Hypoglycemia. We are going to hold her anti-hypoglycemics today and we will follow and then decrease from there. 4. Hyponatremia, resolved. 5. Hypokalemia, improved. cc: Yung Maqruez MD
[2019-04-30] MEDS: DUONEB (A & A) INH PRN ×4 (07:45→19:46)
[2019-04-30] MEDS: ZITHROMAX PO SCH (09:34)
[2019-04-30] MEDS: PROTONIX PO SCH (09:34)
[2019-04-30] MEDS: CORDARONE PO SCH (09:34)
[2019-04-30] MEDS: KLOR-CON PO SCH (09:34)
[2019-04-30] MEDS: LASIX PO SCH (09:35)
[2019-04-30] MEDS: SOLU-MEDROL IV SCH ×2 (09:35→22:26)
[2019-04-30] MEDS: GLUCOPHAGE PO SCH ×2 (09:37→17:29)
[2019-04-30] MEDS: ROBITUSSIN-DM PO PRN (10:02)
--- NOTE | 2019-04-30 11:10 | GENERAL SURGERY PROGRESS NOTE ---
DATE: 04/30/2019 SUBJECTIVE: Patient seems to be doing okay. She is feeling better. Her finger is feeling better. OBJECTIVE: Vital Signs: Patient is currently afebrile. Her vital signs stable. General: No acute distress. HEENT: Normocephalic, atraumatic. Pupils equal, round, reactive to light. Mucous membranes moist. Oropharynx benign. Neck: Supple. Trachea midline. Cardiovascular: Regular rate and rhythm. Lungs: Grossly clear. Abdomen: Soft, nontender, nondistended. Extremities: Left 3rd digit of the hand seems to be improving. Vascular: All extremities perfused. Neurologic: Grossly intact. Skin: As noted above. LABORATORY DATA: Reviewed from yesterday. White blood cell count 18 which is up. ASSESSMENT AND PLAN: A 39-year-old female status post incision and drainage of left 3rd digit of the hand for paronychia. Status post drainage. At this time, we will continue with local wound care. We will continue antibiotics. We will follow. cc: Jae Ariza MD
[2019-04-30] MEDS ORDERED: TYLENOL PO ONE (16:02)
[2019-04-30] MEDS: HUMULIN R (PARKWAY) SUBQ PRN (17:27)
[2019-04-30] MEDS: ROCEPHIN 1 GM in NS 50 ML IV SCH (22:22)
[2019-04-30] MEDS: LIPITOR PO SCH (22:27)
[2019-05-01] MEDS: DUONEB (A & A) INH PRN ×3 (01:03→19:22)
[2019-05-01] MEDS: ROBITUSSIN-DM PO PRN (01:41)
--- NOTE | 2019-05-01 05:04 | PROGRESS NOTE ---
DATE: 04/30/2019 SUBJECTIVE: Patient notes overall she is feeling better. Her finger is less swollen after I D. Still does not feel quite back to normal. Still had a low blood sugar although thankfully only in the 70 range. Denies any chest pain, palpitations although still short of breath and wheezing at times. PHYSICAL EXAMINATION: Vital Signs: Temperature 99 degrees, pulse 110, respiratory 18, BP 116/53. General: Patient is awake, currently in mild distress but improved. HEENT: Normocephalic. Neck: Supple. Cardiovascular: Regular rate. Chest: Decreased but equal. Positive rhonchi. No current wheezing. Abdomen: Soft, nondistended. Extremities: Moves all extremities. Skin: Paronychia appears to be improving, less redness, less swelling. ASSESSMENT: 1. Right lower lobe pneumonia, improved. 2. Leukocytosis, stable. 3. Hyponatremia, stable. 4. Hypoglycemia in a patient with known diabetes, improved. However, she has also not been on her diabetic medications for the past 2 days. Given the fact that we have held her diabetic medications and blood sugars are still below 100 this morning, we are going to keep her in the hospital today. Continue breathing treatments and we will follow. cc: Ynug Marquez MD
[2019-05-01] MEDS: HUMULIN R (PARKWAY) SUBQ PRN (06:40)
[2019-05-01] MEDS: PROTONIX PO SCH (06:42)
[2019-05-01] MEDS: GLUCOPHAGE PO SCH ×2 (09:18→17:09)
[2019-05-01] MEDS: KLOR-CON PO SCH (09:18)
[2019-05-01] MEDS: LASIX PO SCH (09:18)
[2019-05-01] MEDS: GLUCOTROL XL PO SCH ×2 (09:19→21:30)
[2019-05-01] MEDS: CORDARONE PO SCH (09:19)
[2019-05-01] MEDS: ZITHROMAX PO SCH (09:19)
[2019-05-01] MEDS: PREDNISONE PO SCH ×2 (11:15→21:30)
--- NOTE | 2019-05-01 13:01 | GENERAL SURGERY PROGRESS NOTE ---
DATE: 05/01/2019 SUBJECTIVE: Patient feeling better. OBJECTIVE: Vital Signs: Patient is currently afebrile. Her vital signs are stable. General exam: No acute distress. HEENT: Normocephalic, atraumatic. Pupils equal, round, reactive to light. Mucous membranes moist. Oropharynx benign. Neck: Supple. Trachea midline. Cardiovascular: Regular rate and rhythm. Lungs: Grossly clear. Abdomen: Soft, nontender, nondistended. Extremities: Left third digit of the hand seems to be improving. Vascular: All extremities perfused. Neurologic: Grossly intact. Skin: As noted above. LABORATORY: Reviewed. ASSESSMENT AND PLAN: A 39-year-old female status post incision and drainage of left third digit for paronychia. 1. Status post drainage. At this time patient seems to be clinically improving. Defer discharge to the hospitalist. cc: Jae Ariza MD
--- NOTE | 2019-05-01 15:22 | PROGRESS NOTE ---
DATE: 05/01/2019 SUBJECTIVE: Patient notes that her breathing is better. Her left finger is better. However, she still had a bad night, states that her feet hurt. Notes that she was unable to walk last night secondary to foot pain that almost made her pass out. PHYSICAL EXAMINATION: Vital signs: Temperature 99 degrees, pulse 110, respiratory 18, blood pressure 116/53. General: Patient is in no current respiratory distress. HEENT: Normocephalic. Neck: Supple. Cardiovascular: Regular rate. Chest: Minimal wheezing. No crackles. Better air movement. Abdomen: Soft, nondistended. Extremities: Moves all extremities. Skin: Her finger has improved, much less swelling. ASSESSMENT: 1. Paronychia. 2. Right lower lobe pneumonia. 3. Leukocytosis. 4. Hyperglycemia in a patient with known diabetes, improved. Blood sugar is actually up to 200s. We will restart her home medications. PLAN: We are going to continue the patient in the hospital today, stop her Solu-Medrol, change to p.o. prednisone. Hopefully patient will feel better tomorrow and can discharge home. cc: Yung Marquez MD
[2019-05-01] MEDS ORDERED: SOLU-MEDROL IV SCH (21:00)
[2019-05-01] MEDS: ROCEPHIN 1 GM in NS 50 ML IV SCH (21:30)
[2019-05-01] MEDS: LIPITOR PO SCH (21:30)
[2019-05-02] MEDS: PROTONIX PO SCH ×2 (05:57→06:35)
[2019-05-02 06:54] LABS: HEMATOCRIT 33.1 % (37.0-47.0); HEMOGLOBIN 10.5 g/dL (12.0-16.0); MCH 28.7 PG (27-31); MCHC 31.7 g/dL (33-37); MCV 90.4 FL (81-99); MPV 10.9 FL (7.4-10.4); RBC 3.66 XMIL (4.2-5.4); RDW 12.8 % (11.5-14.5); WBC 29.69 X1000 (4.8-10.8)
[2019-05-02 07:08] LABS: ALBUMIN 2.9 g/dL (3.5-5.0); CALCIUM 8.5 mg/dL (8.8-10.2); CREATININE 1.7 mg/dL (0.5-0.9); MAGNESIUM 2.1 mg/dL (1.5-2.7); POTASSIUM 4.5 mmol/L (3.5-5.1); TOTAL BILIRUBIN 0.2 mg/dL (0.20-1.00); TOTAL PROTEIN 7.3 g/dL (6.3-8.3)
--- NOTE | 2019-05-02 07:32 | Diag Imaging Result Doc PS360 ---
EXAM: CHEST-2 VIEWS HISTORY: hypoxia TECHNIQUE: Two views COMPARISON: 04/25/2019 FINDINGS: The heart is enlarged. Sternal wires are present. There is pulmonary edema and a small left pleural effusion. There is basilar atelectasis and possibly underlying infiltrates. Overall the findings are slightly more prominent than on the prior study. IMPRESSION: Mild interval worsening Electronically signed by Santino Nagy 05/02/2019 7:29 AM
[2019-05-02] MEDS: KLOR-CON PO SCH (08:04)
[2019-05-02] MEDS: ZITHROMAX PO SCH (08:04)
[2019-05-02] MEDS: GLUCOTROL XL PO SCH ×2 (08:05→21:13)
[2019-05-02] MEDS: LASIX PO SCH (08:05)
[2019-05-02] MEDS: CORDARONE PO SCH (08:05)
[2019-05-02] MEDS: PREDNISONE PO SCH ×2 (08:05→21:11)
[2019-05-02] MEDS: GLUCOPHAGE PO SCH ×2 (08:05→17:01)
--- NOTE | 2019-05-02 08:36 | GENERAL SURGERY PROGRESS NOTE ---
DATE: 05/02/2019 SUBJECTIVE: The patient seems to be feeling better. She is doing okay. OBJECTIVE: Vital Signs: The patient is currently afebrile. Her vital signs are stable. General: No acute distress. HEENT: Normocephalic, atraumatic. Pupils equal, round, reactive to light. Mucous membranes moist. Oropharynx benign. Neck: Supple. Trachea midline. Cardiovascular: Regular rate and rhythm. Lungs: Grossly clear. Abdomen: Soft, nontender, nondistended. Extremities: Left third digit of the hand overall continues to be improving. Vascular: All extremities perfused. Neurologic: Grossly intact. Skin: As noted above. LABORATORY DATA: None this morning. ASSESSMENT AND PLAN: A 39-year-old female status post incision and drainage of left third digit for paronychia. Status post incision and drainage. At this time, continue current treatment. Discharge pending per the hospitalist. cc: Jae Ariza MD
[2019-05-02] MEDS: ROBITUSSIN-DM PO PRN ×3 (09:31→21:10)
[2019-05-02] MEDS: HUMULIN R (PARKWAY) SUBQ PRN ×2 (10:48→16:29)
[2019-05-02] MEDS: DOXYCYCLINE PO SCH ×2 (11:48→21:11)
--- NOTE | 2019-05-02 16:50 | PROGRESS NOTE ---
DATE: 05/02/2019 SUBJECTIVE: Patient still has multiple complaints today. Still notes that she is short of breath but does feel as though it is better. Has not really been out of bed. States she cannot get out of bed because her bilateral foot pain is so severe. States she is unable to ambulate. EXAM: Vitals: Temp 99, pulse 110, respiratory 18, BP 116/53. General: Patient is in no current respiratory distress. She is minimally ill-appearing, does appear to be better than initial hospitalization. HEENT: Normocephalic. Neck: Supple. Cardiovascular: Tachycardia. Chest: Positive rhonchi throughout. No wheezing. No crackles. Better air movement although poor effort. Abdomen: Soft. Extremities: Moves all extremities. Neurologic: No changes. ASSESSMENT: 1. Right lower lobe pneumonia. We are going to repeat a CT scan in the a.m. We are going to adjust her antibiotics. We will stop azithromycin, change to doxycycline. 2. Mild pleural effusion. 3. Hyponatremia. 4. Hypokalemia. 5. Diabetes. Blood sugars are better. PLAN: Did discuss with patient that she has to start getting out of bed. She has had incentive spirometry at bedside but has not been using it. Discussed the importance of doing such and will follow. cc: Yung Marquez MD
[2019-05-02] MEDS: DUONEB (A & A) INH PRN (19:36)
[2019-05-02] MEDS: ROCEPHIN 1 GM in NS 50 ML IV SCH (21:10)
[2019-05-02] MEDS: LIPITOR PO SCH (21:11)
[2019-05-03] MEDS: PROTONIX PO SCH (06:33)
[2019-05-03 06:50] LABS: HEMATOCRIT 36.7 % (37.0-47.0); HEMOGLOBIN 11.5 g/dL (12.0-16.0); MCH 28.6 PG (27-31); MCHC 31.3 g/dL (33-37); MCV 91.3 FL (81-99); MPV 10.7 FL (7.4-10.4); RBC 4.02 XMIL (4.2-5.4); WBC 31.37 X1000 (4.8-10.8)
[2019-05-03 07:08] LABS: ALBUMIN 2.9 g/dL (3.5-5.0); CALCIUM 9.1 mg/dL (8.8-10.2); CREATININE 1.3 mg/dL (0.5-0.9); MAGNESIUM 2.2 mg/dL (1.5-2.7); POTASSIUM 4.5 mmol/L (3.5-5.1); TOTAL BILIRUBIN 0.2 mg/dL (0.20-1.00); TOTAL PROTEIN 8.3 g/dL (6.3-8.3)
--- NOTE | 2019-05-03 07:26 | GENERAL SURGERY PROGRESS NOTE ---
DATE: 05/03/2019 SUBJECTIVE: Patient doing okay. OBJECTIVE: Vital Signs: The patient is currently afebrile. Her vital signs are stable. General: No acute distress. HEENT: Normocephalic, atraumatic. Pupils equal, round, reactive to light. Mucous membranes moist. Oropharynx benign. Neck: Supple. Trachea midline. Cardiovascular: Regular rate and rhythm. Lungs: Some coarse sounds noted. Abdomen: Soft, nontender, nondistended. Extremities: Wound to the left third finger appears to be improving overall. There was some drainage last night. Vascular: All extremities perfused. Neurologic: Grossly intact. Skin: As noted above. LABORATORY DATA: Reviewed from yesterday. White blood cell count is up to 29, hematocrit 33. Sodium is 126. ASSESSMENT AND PLAN: A 39-year-old female status post incision and drainage of left third digit of paronychia. Status post drainage. At this time, the finger itself appears to be improving. She does have multiple other medical comorbidities that are keeping her in the hospital. I suspect her white blood cell count at this point is related to her pneumonia given the fact that it looks worsened on the chest x-ray, but will continue to follow. cc: Jae Ariza MD
--- NOTE | 2019-05-03 07:42 | Diag Imaging Result Doc PS360 ---
CHEST-2 VIEWS - 05/03/2019 INDICATION: hypoxia COMPARISON: 05/02/2019 FINDINGS: Stable mild cardiomegaly. Stable pulmonary vascular congestion. There is been some improvement in the central infiltrates or edema. Stable trace left pleural effusion. No significant right pleural effusion. IMPRESSION: Slight improvement from prior. Electronically signed by Sean Clarke 05/03/2019 7:40 AM
[2019-05-03] MEDS: DUONEB (A & A) INH PRN (07:48)
--- NOTE | 2019-05-03 08:54 | Diag Imaging Result Doc PS360 ---
EXAM: CT THORAX W/O CONTRAST INDICATION: ? pneumonia worsening TECHNIQUE: This exam was performed using automated exposure control, adjustment of mA or kV according to patient size, and/or use of iterative reconstruction technique. COMPARISON: None. FINDINGS: There is moderate subsegmental atelectasis in the left lower lobe and lingula at the lung bases. There is mild subsegmental atelectasis in the right middle lobe and right lower lobe anteriorly at the lung base. Superimposed pneumonia on the left is possible but less likely. There is no pleural fluid collection and no pneumothorax. There is no cardiomegaly. 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 There is a bulky calcified subcarinal lymph node indicating prior granulomatous disease. Limited views of the upper abdomen are essentially unremarkable. IMPRESSION: Moderate subsegmental atelectasis at the left lung base and mild subsegmental atelectasis at the right lung base as described. Although superimposed pneumonia is possible at the left lung base, it is less likely. Electronically signed by Tripp Fisher 05/03/2019 8:51 AM
[2019-05-03] MEDS: PREDNISONE PO SCH (09:03)
[2019-05-03] MEDS: GLUCOTROL XL PO SCH ×2 (09:03→22:28)
[2019-05-03] MEDS: LASIX PO SCH ×2 (09:03→22:29)
[2019-05-03] MEDS: KLOR-CON PO SCH (09:03)
[2019-05-03] MEDS: DOXYCYCLINE PO SCH ×2 (09:03→22:28)
[2019-05-03] MEDS: CORDARONE PO SCH (09:03)
[2019-05-03] MEDS: GLUCOPHAGE PO SCH ×2 (09:03→16:21)
[2019-05-03] MEDS: ROBITUSSIN-DM PO PRN ×2 (09:09→22:34)
[2019-05-03] MEDS: XOPENEX NEB INH PRN ×2 (15:18→23:07)
[2019-05-03] MEDS ORDERED: TYLENOL PO ONE (15:55)
[2019-05-03] MEDS: HUMULIN R (PARKWAY) SUBQ PRN ×2 (17:19→22:30)
--- NOTE | 2019-05-03 19:49 | PROGRESS NOTE ---
DATE: 05/03/2019 SUBJECTIVE: The patient still states that she is short of breath, coughing. Denies any fevers or chills. She still states she does not feel quite well and is still having increased cough at night. OBJECTIVE: Vital Signs: Temperature 98, pulse 114, respiratory rate 18, BP elevated at 154/93 to 120/53. General: The patient is an obese female who currently is in mild respiratory distress, very pleasant. HEENT: Normocephalic. Neck: Supple. Cardiovascular: Regular rate. Chest: Positive rhonchi throughout. No current crackles. Positive rhonchi throughout. Abdomen: Soft, obese, nondistended. Extremities: Moves all extremities. Neurologic: No changes. ASSESSMENT: 1. Right lower lobe pneumonia. 2. Moderate subsegmental atelectasis in the left lung base. 3. Leukocytosis. Her white count has continued to elevate. She has been on steroids. It has gone from 18 to 29, currently at 31. 4. Hyponatremia, resolved. Sodium was 126, currently 136. 5. Acute on chronic renal failure, improving. 6. Volume depletion, improving. BUN and creatinine both are improving. 7. Diabetes with hyperglycemia. 8. Paronychia, improving. PLAN: Given the fact that her white count has continued to climb at 31 we are going to stop her Rocephin and cefepime. We stopped her azithromycin and recently changed her doxycycline. CT did not demonstrate any acute infectious process. We will continue to follow. Discussed with the patient the importance of getting out of bed, continuing incentive spirometry. cc: Yung Marquez MD
[2019-05-03] MEDS: MAXIPIME 1 GM in NS 50 ML IV SCH (22:30)
[2019-05-03] MEDS: LIPITOR PO SCH (22:30)
[2019-05-04] MEDS: PROTONIX PO SCH (06:04)
[2019-05-04] MEDS: ROBITUSSIN-DM PO PRN ×3 (07:46→18:01)
[2019-05-04 08:44] LABS: ALBUMIN 2.9 g/dL (3.5-5.0); CALCIUM 8.9 mg/dL (8.8-10.2); CREATININE 1.4 mg/dL (0.5-0.9); POTASSIUM 4.4 mmol/L (3.5-5.1); TOTAL BILIRUBIN 0.3 mg/dL (0.20-1.00); TOTAL PROTEIN 7.5 g/dL (6.3-8.3)
[2019-05-04 09:05] LABS: HEMATOCRIT 35.1 % (37.0-47.0); HEMOGLOBIN 10.8 g/dL (12.0-16.0); MCH 28.6 PG (27-31); MCHC 30.8 g/dL (33-37); MCV 92.9 FL (81-99); MPV 10.6 FL (7.4-10.4); RBC 3.78 XMIL (4.2-5.4); RDW 13.3 % (11.5-14.5); WBC 32.78 X1000 (4.8-10.8)
[2019-05-04] MEDS: XOPENEX NEB INH PRN ×3 (09:13→21:28)
[2019-05-04] MEDS: DOXYCYCLINE PO SCH ×2 (09:23→20:44)
[2019-05-04] MEDS: LASIX PO SCH ×2 (09:23→20:44)
[2019-05-04] MEDS: KLOR-CON PO SCH (09:23)
[2019-05-04] MEDS: GLUCOPHAGE PO SCH ×2 (09:23→17:56)
[2019-05-04] MEDS: CORDARONE PO SCH (09:23)
[2019-05-04] MEDS: MAXIPIME 1 GM in NS 50 ML IV SCH ×2 (09:25→20:44)
[2019-05-04] MEDS: GLUCOTROL XL PO SCH ×2 (09:26→20:46)
--- NOTE | 2019-05-04 09:48 | GENERAL SURGERY PROGRESS NOTE ---
DATE: 05/04/2019 SUBJECTIVE: Patient doing okay. She did report she fell yesterday and has some pain in the inner part of her right thigh. OBJECTIVE: Vital Signs: Patient is currently afebrile. Her vital signs are stable. General: No acute distress. HEENT: Normocephalic, atraumatic. Pupils equal, round, reactive to light. Mucous membranes moist. Oropharynx benign. Neck: Supple. Trachea midline. Cardiovascular: Regular rate and rhythm. Lungs: Grossly clear. Abdomen: Soft, nontender, nondistended. Extremities: Left third digit seems to be improving. Right inner thigh: There is an area of tenderness but I do not feel anything that needs to be drained at this point. Vascular: All extremities perfused. Neurologic: Grossly intact. Skin: No signs of jaundice. LABORATORY: Reviewed from yesterday, white blood cell count did go up to 31, hematocrit 36, platelet count 416,000. Remainder of labs reviewed. ASSESSMENT AND PLAN: A 39-year-old female status post incision and drainage of left 3rd digit paronychia. 1. Status post drainage. At this time continue current treatment. Continue antibiotics. I do not think her white blood cell count is coming from her finger. 2. Right inner thigh bruise. At this point, I do not think it is an abscess, but we will continue to monitor it while she is in the hospital. cc: Jae Ariza MD
--- NOTE | 2019-05-04 15:06 | Diag Imaging Result Doc PS360 ---
EXAM : CT LUMBAR SPINE W/O CONTRAST HISTORY: john LE weakness/numbness TECHNIQUE: CT lumbar spine without contrast COMPARISON: None. FINDINGS: Lumbar spine: There is good alignment to the lumbar spine. No compressed vertebra. No other fracture. No subluxation. Multilevel facet hypertrophy. No disc herniation identified. No significant neural foraminal narrowing. IMPRESSION: Mild degenerative changes This exam was performed using automated exposure control, adjustment of mA or kV according to patient size, and/or use of iterative reconstruction technique. Electronically signed by Santino Nagy 05/04/2019 3:03 PM
--- NOTE | 2019-05-04 19:09 | PROGRESS NOTE ---
DATE: 05/04/2019 SUBJECTIVE: The patient has a very difficult history to follow this morning. She initially states that she cannot feel her bilateral lower extremities. States this started yesterday. After much discussion and inquiry, it does appear as though she is attempting to state that her legs are weak, that she still feels them, they are still hurting. States they are too weak for her to stand, but ultimately denies having complete absence of sensation in her feet and legs. PHYSICAL EXAMINATION: Vital signs: Temperature 98 degrees, pulse 114, respiratory 18, BP 154/93. General: She is currently in mild respiratory distress. She is having significant coughing, although nonproductive on exam. HEENT: Normocephalic. Neck: Supple. Cardiovascular: Regular rate. Chest: Positive rhonchi. No current crackles. No wheezing. Extremities: She is noted to move all her extremities. Neurologic: Completely unable to assess her bilateral lower extremity numbness. When lightly touching her legs, patient states she cannot feel that. States she does not feel the covers; however, when noxious stimuli is applied, she does move her foot. ASSESSMENT: 1. Bilateral lower extremity pain versus weakness versus paresthesias. We attempted to get an MRI, but unfortunately her body habitus does not allow this to be performed. CT did demonstrate multilevel facet hypertrophy, otherwise degenerative changes, right inner thigh bruise. Ms. Negrete is concerned that she may have an abscess. This does not appear to be the case. 2. Leukocytosis. Her white count is actually elevated again today at 32. It has been 29, 31, and 32 for the past several days. Unclear etiology. Her CT scan was actually better. Her creatinine is improving. BUN is down to 33 and 1.4. Sodium is better, up to 136. We have adjusted her antibiotics. We will recheck in the a.m. We have added cefepime and will follow. 3. Hyponatremia, improved. 4. Paronychia. I agree with Surgery that her white count certainly does not appear to be coming from her finger. 5. Right lower lobe pneumonia. Her most recent CT scan yesterday demonstrated subsegmental atelectasis, although mild superimposed pneumonia was possible. PLAN: Discussed with patient that she absolutely has to start taking deep breaths. She has to use incentive spirometry. She needs to sit up on the side of the bed. We will get physical therapy involved. We will recheck her white count in the a.m. and follow. cc: Yung Marquez MD
[2019-05-04] MEDS: LIPITOR PO SCH (20:44)
[2019-05-05 06:16] LABS: HEMATOCRIT 34.4 % (37.0-47.0); HEMOGLOBIN 10.4 g/dL (12.0-16.0); MCH 27.9 PG (27-31); MCHC 30.2 g/dL (33-37); MCV 92.2 FL (81-99); MPV 10.6 FL (7.4-10.4); RBC 3.73 XMIL (4.2-5.4); RDW 13.2 % (11.5-14.5); WBC 35.45 X1000 (4.8-10.8)
[2019-05-05] MEDS: PROTONIX PO SCH (06:23)
[2019-05-05] MEDS: ROBITUSSIN-DM PO PRN (06:24)
[2019-05-05 06:53] LABS: ALBUMIN 2.5 g/dL (3.5-5.0); CALCIUM 8.8 mg/dL (8.8-10.2); CREATININE 1.4 mg/dL (0.5-0.9); MAGNESIUM 2.1 mg/dL (1.5-2.7); POTASSIUM 4.5 mmol/L (3.5-5.1); TOTAL BILIRUBIN 0.3 mg/dL (0.20-1.00); TOTAL PROTEIN 7.1 g/dL (6.3-8.3)
[2019-05-05] MEDS: XOPENEX NEB INH PRN ×2 (07:34→20:20)
[2019-05-05] MEDS: MAXIPIME 1 GM in NS 50 ML IV SCH (08:18)
[2019-05-05] MEDS: KLOR-CON PO SCH (08:18)
[2019-05-05] MEDS: DOXYCYCLINE PO SCH (08:18)
[2019-05-05] MEDS: LASIX PO SCH ×2 (08:18→21:36)
[2019-05-05] MEDS: GLUCOPHAGE PO SCH ×2 (08:18→18:57)
[2019-05-05] MEDS: GLUCOTROL XL PO SCH ×2 (08:18→21:36)
[2019-05-05] MEDS: CORDARONE PO SCH (08:18)
--- NOTE | 2019-05-05 09:45 | GENERAL SURGERY PROGRESS NOTE ---
DATE: 05/05/2019 SUBJECTIVE: The patient says she is feeling a little bit better. OBJECTIVE: Vital Signs: The patient is currently afebrile. She does still have a persistent tachycardia, but her blood pressure is fine. General: No acute distress. Cardiovascular: Some tachycardia. Lungs: Grossly clear. Abdomen: Soft, nontender, nondistended. Extremities: Finger on the left hand looks stable. No active drainage. No swelling. No erythema. ASSESSMENT AND PLAN: A 39-year-old female status post incision and drainage of left third digit paronychia. Status post drainage. At this time, will continue current treatment. Will continue antibiotics and continue to monitor. cc: Jae Ariza MD
[2019-05-05] MEDS: HUMULIN R (PARKWAY) SUBQ PRN ×2 (11:04→17:10)
[2019-05-05] MEDS ORDERED: MAXIPIME 2 GM in NS 50 ML IV SCH (16:00)
[2019-05-05] MEDS ORDERED: ZYVOX 600 MG/D5W 600 MG/300 ML IVPB IV SCH (17:00)
--- NOTE | 2019-05-05 21:01 | PROGRESS NOTE ---
DATE: 05/05/2019 SUBJECTIVE: The patient states she still feels terrible, still has a lot of cough and congestion. Still has shortness of breath, still has pain in her bilateral lower extremities. She no longer states that she cannot feel her lower extremities. She states that they are just hurting. OBJECTIVE: Vital signs reviewed. Temperature 98.3 degrees, pulse 114, respiratory rate 18, BP 154/93.General: The patient is a morbidly obese female who is in minimal respiratory distress. HEENT: Normocephalic. Neck supple. Cardiovascular: Tachycardia. No murmurs. Chest: Decreased breath sounds bilaterally. Positive rhonchi throughout, frequent coughing on exam. Decreased air movement. No current wheezing. No crackles. Abdomen soft, obese, nondistended. Extremities: She is noted to visibly move all 4 extremities, although she does not move her legs very frequently. ASSESSMENT: 1. Chronic renal failure, stable. Creatinine has been 1.3 to 1.4. 2. Morbid obesity. 3. Supraventricular tachycardia. 4. Leukocytosis. White count still elevated at 35. 5. Hyponatremia. 6. Diabetes with hyperglycemia. PLAN: We have talked with Dr. Bradshaw, Infectious Disease. We are going to adjust antibiotics. We are going to increase cefepime to 2 g IV q.8 and add Zyvox. We are going to check another blood culture and procalcitonin, and will follow. cc: Yung Marquez MD
[2019-05-05] MEDS: LIPITOR PO SCH (21:36)
[2019-05-05] MEDS ORDERED: ZOFRAN ODT PO PRN (23:57)
[2019-05-06] MEDS ORDERED: MAXIPIME 2 GM in NS 50 ML IV SCH (01:00)
[2019-05-06] MEDS: PROTONIX PO SCH (06:08)
[2019-05-06] MEDS: ZYVOX 600 MG/D5W 600 MG/300 ML IVPB IV SCH ×2 (06:21→18:45)
[2019-05-06] MEDS ORDERED: GLUCOPHAGE PO SCH (08:00)
[2019-05-06] MEDS ORDERED: GLUCOTROL XL PO SCH (09:00)
[2019-05-06] MEDS: CORDARONE PO SCH (09:19)
[2019-05-06] MEDS: LASIX PO SCH ×2 (09:19→22:31)
[2019-05-06] MEDS: KLOR-CON PO SCH (09:20)
[2019-05-06] MEDS: MAXIPIME 2 GM/NS 2 GM/100 ML IVPB IV SCH ×2 (09:27→18:45)
[2019-05-06] MEDS: XOPENEX NEB INH PRN ×3 (10:52→19:26)
[2019-05-06] MEDS: NS NEB INH SCH ×2 (10:53→15:12)
--- NOTE | 2019-05-06 10:57 | GENERAL SURGERY PROGRESS NOTE ---
DATE: 05/06/2019 SUBJECTIVE: Patient moved from [place] to [facility]. She is doing about the same. She is still complaining of right thigh soreness. OBJECTIVE: Vital Signs: Patient is currently afebrile. She still has a persistent tachycardia, but her blood pressure seems stable. General: No acute distress. HEENT: Normocephalic, atraumatic. Pupils equal, round, reactive to light. Mucous membranes moist. Oropharynx benign. Neck: Supple, trachea midline. Cardiovascular: Regular rate and rhythm. Lungs: Grossly clear. Abdomen: Soft, nontender, nondistended. Extremities: Left 3rd digit appears to be about the same. Right inner thigh, she reports tenderness, but I do not see anything obvious externally. Neurologic: Grossly intact. Skin: As noted above. Vascular: All extremities perfused. LABORATORY: Reviewed from yesterday. Labs from this morning are pending. White blood cell count does continue to go up. ASSESSMENT AND PLAN: A 39-year-old female status post incision and drainage of left 3rd digit paronychia. Status post drainage: At this time continue supportive care. Continue intravenous antibiotics. Her white blood cell count does continue to increase. Etiology at this point is unclear. Infectious Disease is being consulted, and we will follow up with their recommendations, but otherwise, we will continue to follow. cc: Jae Ariza MD
--- NOTE | 2019-05-06 13:18 | PROVIDER PROGRESS NOTE ---
Progress Note Patient has been seen and examined. A full diction to follow.
[2019-05-06] MEDS ORDERED: LANTUS INSULIN SUBQ ONE (16:03)
--- NOTE | 2019-05-06 18:41 | PROGRESS NOTE ---
DATE: 05/06/2019 SUBJECTIVE: Today, Ms. Negrete refers to be doing fairly okay. She continues to be coughing. OBJECTIVE: Vital signs: Blood pressure 138/83, pulse 121, respirations 19, and temperature 98.4 degrees. Patient is saturating 98%. General: Ms. Negrete is a 39-year-old female. She is in bed not seemingly distressed. HEENT: Mucosa is pink and moist. Anicteric. Acyanotic. Neck: Supple. No JVD. Chest: Air entry is bilaterally reduced. There are some crackles in the posterior lung valentine. Cardiovascular: Regular rate and rhythm, slightly tachycardic. No murmurs. There is an old sternotomy scar on the anterior chest wall extremities sore GI. Abdomen: Soft, distended, nontender. Bowel sounds present. Extremities: No pedal edema. There is some tenderness to the right medial thigh high. Is extremities no pedal edema. DIRECTOR SHIP: Patient is awake, alert, and oriented. LABORATORY DATA: WBC is up to 32.45, hemoglobin is 10.4, and platelet count of 377,000. Chemistry is also reviewed from yesterday. Glucose is still high. ASSESSMENT: 1. Acute hypoxemic respiratory failure. 2. Bilateral multifocal pneumonia. Patient is on cefepime with Zyvox at this point. 3. Left is left 3rd digit paronychia. The finger is remarkably swollen. There is some fluctuation on the digit on the distal phalanx. I think the it will need probably some I D. We will wait for surgery to evaluate her again and then go from there. 4. The patient will continue to be on antibiotics. 5. Uncontrolled diabetes mellitus. We will continue with we will started the patient on insulin regimen. I have discontinue her home oral anti micro oral antidiabetic medications. 5. Suspected congestive heart failure with preserved ejection fraction. 7. 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 cc: MD MCKENZIE Gooden
[2019-05-06] MEDS: ROBITUSSIN-DM PO PRN (18:45)
[2019-05-06] MEDS: MUCOMYST 20% INH SCH (19:27)
[2019-05-06] MEDS: HUMALOG SUBQ SCH (19:51)
[2019-05-06] MEDS ORDERED: LIPITOR PO SCH (21:00)
--- NOTE | 2019-05-06 21:34 | CONSULTATION ---
DATE OF CONSULTATION: 05/06/2019 HISTORY OF PRESENT ILLNESS: Ms. Negrete is 39 years old and she reports a sense of weakness in the legs. This began a few weeks ago and seems to be gradually progressing. Hospital notes indicate possible improvement in the last few days, but she reports she is not certain she has gotten better. She believes right leg is a little bit weaker than the left. She has heaviness in both legs. She feels unsteady when she stands. There may be some clumsiness, but she does not report definite ataxia or incoordination. In the last week or so, she has also noticed some weakness in the arms, heaviness in the arms. She has trouble getting herself up to a standing position from a seated position. She has trouble maintaining her arms at or above shoulder height when sitting or standing. She has not lost bowel or bladder control. There has not been dysarthria, trouble chewing or swallowing, facial asymmetry, vision disturbance. She specifically denies diplopia. She has not recognized ptosis or facial asymmetry. She has some discomfort in the limbs. She hurts along her spine and in the muscles in all limbs. She does not report radicular pain. She has had some numbness and tingling in the feet chronically. She does not report burning, stinging, or other specific dysesthesia in the limbs. There is no history of head, neck, back or limb injury. Before the last few weeks, she had not had these symptoms. There is report that she developed some respiratory symptoms and congestion possibly a few days before onset of her weakness. She has long-standing diabetes mellitus. She reports her blood sugars are usually in the 100s at home. Blood sugars here have ranged 100s to 200s. Other lab here shows BUN 30s to 40s and computer shows baseline BUN normal. Sodium was 127 and came up to the 130s. Alkaline phosphatase was mildly elevated and other liver enzymes were normal. TSH was normal. Calcium and magnesium were normal. CK was 150. Urine drug screen was all negative. WBC count was initially 14,000, later 35,000. We do not have sedimentation rate reported. She has been afebrile. Lumbar CT showed mild degenerative changes diffusely, but no HNP. PHYSICAL EXAMINATION: On exam, Ms. Negrete is awake, alert, attentive. She seems appropriate. Effort seemed good. I can overcome the deltoids grading 4+/5 on the left, 4/5 on the right. I can overcome the iliopsoas, grading 3/5 bilaterally. Limb tone is symmetric. She has good power distally in the arms and legs. She did well on [id number] testing bilaterally. She reports diminished pinprick and light touch appreciation in a stocking pattern bilaterally, equal on the left and right. In addition, she reports diminished pinprick appreciation over the right thigh circumferentially, extending to about T12 level. Proprioception is good at the great toe MTP joints bilaterally. I did not test her gait. Straight leg raising is negative. IMPRESSION: 1. Proximal limb weakness. Possibilities are that she has a myopathy (relatively unlikely with normal CK), diabetic amyotrophy/radiculopathy, other radiculopathy, myelopathy (unlikely with upper and lower limbs involved and no incontinence and more prominent sensory findings are ipsilateral to the more prominent motor symptoms). I have some concern for Guillain-[place] syndrome, in addition to diabetic radiculoneuritis. It is also possible that she has a sense of weakness and no real deficit, and that my findings on exam are misinterpretation of her pain limited effort. 2. She does have clinical evidence of peripheral neuropathy, presumed diabetic neuropathy, presumed long-standing. 3. We will plan electromyogram and further plans will depend on that report. Thanks for asking Neurology to see Ms. Negrete. cc: MD MCKENZIE Rocha III
--- NOTE | 2019-05-06 22:04 | CONSULTATION ---
DATE OF CONSULTATION: 05/06/2019 REQUESTING PROVIDER: Yung Marquez MD REASON FOR CONSULTATION: Pneumonia. HISTORY OF PRESENT ILLNESS: This is a 39-year-old female with a medical history of systolic congestive heart failure, hypertension, diabetes mellitus type 2, coronary artery disease with myocardial infarction and morbid obesity. She was initially admitted to [facility] on 04/25/2019 with right lower lobe pneumonia, left upper extremity third digit paronychia and uncontrolled diabetes. She has been treated with cefepime 05/04/2019 and linezolid since 05/05/2019, as well as Rocephin from 04/25/2019 to 05/02/2019 and azithromycin from 04/25/2019 to 05/02/2019; however, despite of ongoing antibiotic therapy, the patient's white blood cell count elevated up to 35.45 yesterday. She did receive IV Solu-Medrol 40mg twice on 04/30/19. CT thorax without contrast on 05/03/2019 showed moderate subsegmental atelectasis at the left lung base and mild subsegmental atelectasis at the right lung base with possible superimposed pneumonia. She was transferred to our facility last night with pulmonology consult, infectious disease specialist consult and neurologist consult. The patient currently is lying in bed with no acute distress noted. She is on room air. She does have constant weak dry cough when I am in the room, which per patient already lasts over a month and Mucinex did not help. She does have some cough production at times, and she did not pay attention to the color and consistency of the sputum. The patient reported that breathing treatments apparently helps her cough stuff up. She has no chest congestion or tightness. She reports chest pain from left side of the chest moving to right side of the chest, which is only worsened with cough and deep breathing but no physical activities. She is complaining of bilateral lower extremity swelling, pain and weakness. She said the pain and weakness was so severe that she even could not stand up for chest x-ray. She also has sore throat with hoarseness and difficulty swallowing for several days. She reports no fever, chills, nausea, bowel habit change, urination discomfort, headache or shortness of breath at rest. She does have shortness of breath with activities. She underwent incision and drainage of the left third digit paronychia on 04/28/[address] Ariza. Currently, the left upper extremity third digit still swelling with some erythema, warmth, tenderness on palpation and noticeable yellow pus surrounding the nail. PAST MEDICAL AND SURGICAL HISTORY: 1. Systolic congestive heart failure. Echocardiogram on 04/26/2019 showed left ventricular systolic function probably normal with ejection fraction of 60%. The patient does have mild pulmonary hypertension. 2. Hypertension. 3. Diabetes mellitus type 2. 4. Coronary artery disease with history of myocardial infarction, status post coronary artery stenting. 5. Morbid obesity with current BMI 42.1. 6. Status post tubal ligation. FAMILY HISTORY: Reviewed and noncontributory. SOCIAL HISTORY: Patient lives at home with her family. Her is a heavy smoker and sometimes smokes in front of her, so she does have secondhand smoking exposure. She denies any history of alcohol or illicit drug use. ALLERGIES: No known drug allergies. REVIEW OF SYSTEMS: A 10-point review of systems was conducted and the pertinent is listed within the HPI, otherwise noncontributory. PHYSICAL EXAMINATION: Vital Signs: Temperature 98.4, blood pressure 134/83, pulse 121, respiratory rate 19, oxygen saturation 94% on room air. General: Morbidly obese, lying in bed with no acute distress noted. HEENT: Trachea midline. Mucosa pink and moist. Atraumatic, normocephalic. Chest: Respiration even and unlabored. Has a bit of scar tissue in the midline of the chest. Symmetrical excursion. Auscultation revealed diminished breathing sounds bilaterally, otherwise clear. Cardiovascular: Sinus tachypnea with S1 and S2 noted. No murmur or abnormal heart sounds noted. Gastrointestinal: Obese, protuberant, nontender. Soft. Bowel sounds normoactive in all 4 quadrants. Extremities: Trace pedal edema. No cyanosis. No clubbing. Left upper extremity third digit swelling, erythema, warmth, and tenderness with yellow pus surrounding the nail noted. Neurologic: Alert and oriented x3. Speech fluent. Follows commands. LABORATORY DATA: No labs today. IMAGING DATA: See CT thorax without contrast on 05/04/2019 on HPI. ASSESSMENT: This is a 39-year-old female with a medical history of systolic congestive heart failure, hypertension, diabetes mellitus type 2, coronary artery disease with history of myocardial infarction and morbid obesity. She has been admitted since 04/25/2019 to [facility] with right lower lobe pneumonia and left upper extremity third digit paronychia. She underwent incision and drainage of that left third digit paronychia by Dr. Ariza on 04/28/2019. Despite of ongoing antibiotic therapy, patient's leukocytosis kept worsening up to 35.45 yesterday morning with left lower lobe moderate subsegmental atelectasis and right lower lobe mild subsegmental atelectasis with possible superimposed pneumonia based on the CT thorax without contrast on 05/04/2019. The patient has been transferred to our facility last night with pulmonology consult and infectious disease specialist consult. 1. Constant dry cough with production at times for over 1 month without improvement. 2. Possible pneumonia with left lower lobe moderate subsegmental atelectasis and right lower lobe mild subsegmental atelectasis. 3. Left upper extremity third digit paronychia. 4. Worsening leukocytosis. Received 40mg IV Solu-Medrol twice on 04/30/19. 5. Morbid obesity. PLAN: 1. Continue antibiotics per Dr. Bradshaw. Continue bronchodilators q.4 hours as needed. Add mucomyst. 2. Follow up with ABG, procalcitonin, urinalysis, wound culture, blood culture and chest x-ray. 3. Dr. Ariza, Dr. Bradshaw and Dr. Elliott are on board. 4. Continue GI and DVT prophylaxis. 5. Continue physical therapy. 6. Encourage patient to use incentive spirometer q.2 hours as tolerated. 7. Encourage weight loss. 8. Further recommendations pending hospital course. Thank you for the courtesy of this consult. Dictated by MAICOL Ramos for Ralph Mchugh MD cc: MAICOL Ramos MD [facility]
[2019-05-06] MEDS: LIPITOR PO SCH (22:31)
[2019-05-07] MEDS: MAXIPIME 2 GM/NS 2 GM/100 ML IVPB IV SCH (01:19)
[2019-05-07] MEDS: XOPENEX NEB INH PRN ×4 (03:28→20:49)
[2019-05-07] MEDS: NS NEB INH SCH ×4 (03:29→20:49)
[2019-05-07 03:53] LABS: ALLEN TEST YES; BE 1.5 mmoll (-3.0-3.0); BLOOD TYPE ARTERIAL; HCO3-(ACT) 26.1 mmoll (20.0-26.0); METHB 0.7 % (0.0-1.5); O2(CT) 14.3 mL/dL (15.0-23.0); O2HB 95.2 % (95.0-99.0); PCO2(98.6) 39 mmHg (35-45); PO2(98.6) 76 mmHg (60-100); SAMPLE BLOOD; SAO2 98.6 % (95.0-100.0); THB 10.6 g/dL (11.5-17.4); pH(98.6) 7.43 (7.35-7.45)
[2019-05-07 03:54] LABS: MODALITY CANNULA
[2019-05-07] MEDS: PROTONIX PO SCH (07:01)
[2019-05-07 07:44] LABS: BASO# 0.05 X1000 (0.0-0.2); BASO% 0.1 % (0.0-0.8); EOS# 0.01 X1000 (0.0-0.7); HEMATOCRIT 33.2 % (37.0-47.0); HEMOGLOBIN 10.2 g/dL (12.0-16.0); IMM GRAN# 0.49 X1000 (0.0-0.04); IMM GRAN% 1.2 % (0.0-0.5); LYMPH# 1.49 X1000 (1.2-3.4); LYMPH% 3.6 % (20.5-51.1); MCHC 30.7 g/dL (33-37); MCV 94.3 FL (81-99); MONO# 1.05 X1000 (0.11-0.59); MONO% 2.5 % (1.7-9.3); MPV 10.6 FL (7.4-10.4); NEUT# 38.83 X1000 (1.4-6.5); NEUT% 92.6 % (42.2-75.2); PLT 297 X1000 (130-400); RBC 3.52 XMIL (4.2-5.4); RDW 13.4 % (11.5-14.5); WBC 41.92 X1000 (4.8-10.8)
[2019-05-07] MEDS: MUCOMYST 20% INH SCH ×2 (07:49→20:49)
[2019-05-07 07:53] LABS: ALB/GLOB RATIO 0.5; ALBUMIN 2.2 g/dL (3.5-5.0); CALCIUM 9.1 mg/dL (8.8-10.2); CREATININE 1.7 mg/dL (0.5-0.9); POTASSIUM 4.3 mmol/L (3.5-5.1); TOTAL BILIRUBIN 0.59 mg/dL (0.20-1.00); TOTAL PROTEIN 6.9 g/dL (6.3-8.3)
[2019-05-07 07:56] LABS: BANDS 6 % (0-1); LARGE PLATELETS 1+; LYMPHS 10 % (21-51); SEGS 82 % (42-75)
[2019-05-07 08:11] LABS: HEMOGLOBIN A1C 12.8 % (4.8-6.0)
[2019-05-07] MEDS: ZYVOX 600 MG/D5W 600 MG/300 ML IVPB IV SCH ×2 (09:55→20:44)
[2019-05-07] MEDS: HUMALOG SUBQ SCH ×3 (09:56→17:10)
[2019-05-07] MEDS: KLOR-CON PO SCH (09:56)
[2019-05-07] MEDS: LASIX PO SCH ×2 (09:56→20:45)
[2019-05-07] MEDS: CORDARONE PO SCH (09:56)
[2019-05-07] MEDS: LANTUS INSULIN SUBQ SCH (09:56)
--- NOTE | 2019-05-07 10:41 | GENERAL SURGERY PROGRESS NOTE ---
DATE: 05/07/2019 SUBJECTIVE: Patient doing okay. There was concern about some fluid around her finger, but it appears to be relatively stable. OBJECTIVE: Vital signs: Patient is currently afebrile. Her heart rate is still in the 1-teens, which is essentially at her baseline. Blood pressure is fine. General exam: No acute distress. Cardiovascular: Regular rate and rhythm. Lungs: Grossly clear. Abdomen: Soft, nontender, nondistended. Extremities: Left third digit appears to be relatively stable, but does have swelling. There is some loose skin, but I do not feel any fluid under what looks like an old blister. I tried to express in several areas today. LABORATORY: ABG from this morning reviewed. ASSESSMENT AND PLAN: A 39-year-old female status post incision and drainage of paronychia. 1. Status post drainage of paronychia, left hand. At this time, continue current treatment. Continue to monitor it. No additional fluid I think needs to be drained at this point, but she still has significant swelling, so recommend intravenous antibiotics. May need to consider repeat x-rays in the near future of her finger to see if she is developing osteomyelitis. cc: Jae Ariza MD
[2019-05-07] MEDS: ZOSYN 3.375 GM in NS 50 ML IV SCH ×2 (11:54→17:30)
--- NOTE | 2019-05-07 13:40 | Diag Imaging Result Doc PS360 ---
EXAM: CT PELVIS W/O CONTRAST 05/07/2019 HISTORY: r/o pelvic infec tion extension TECHNIQUE: This exam was performed using automated exposure control, adjustment of mA or kV according to patient size, and/or use of iterative reconstruction technique. COMMENT: There is vacuum phenomenon in the sacroiliac joints. The urinary bladder is somewhat distended. There are mild degenerative changes in both hips. There is no evidence of acute bony abnormality. There is some subcutaneous edema over the left flank. IMPRESSION: No definite evidence of intrapelvic infection or abnormal fluid collection. Subcutaneous edema on the left. The possibility of cellulitis cannot be entirely excluded. Electronically signed by Santiago Putnam 05/07/2019 1:38 PM
--- NOTE | 2019-05-07 13:46 | Diag Imaging Result Doc PS360 ---
EXAM: CT EXT LOWER RIGHT W/O CON 05/07/2019 HISTORY: right medial thigh abcess TECHNIQUE: CT of the right leg COMMENT: There is no evidence of bony fracture erosion or periosteal reaction. There is skin thickening and subcutaneous edema over the medial thigh. There is fluid and gas in the subcutaneous fat extending from the right perineal region caudally adjacent to the vastus lateralis muscle for at least 14 cm in superior-inferior dimension, 9.2 cm in anterior posterior dimension with a maximum transverse dimension of 2.1 cm. This is not well circumscribed. It is just under the skin near the fold of the labia majora on the right. IMPRESSION: Gas forming cellulitis and early abscess formation in the subcutaneous fat of the medial right thigh as described. Electronically signed by Santiago Putnam 05/07/2019 1:43 PM
[2019-05-07] MEDS: MYCOSTATIN SUSP PO SCH ×3 (15:03→20:45)
[2019-05-07 16:20] LABS: URINE SOURCE CATH
[2019-05-07 16:24] LABS: BILIRUBIN URINE NEGATIVE (NEGATIVE); BLOOD URINE MODERATE (NEGATIVE); COLOR YELLOW; GLUCOSE URINE NEGATIVE (NEGATIVE); KETONE URINE NEGATIVE (NEGATIVE); LEUKOCYTES URINE NEGATIVE (NEGATIVE); NITRITE URINE NEGATIVE (NEGATIVE); PH URINE 6.5; PROTEIN URINE 300 mg/dL (NEGATIVE); SP GRAVITY URINE 1.022; TURBIDITY URINE HAZY (CLEAR); UROBILINOGEN URINE NORMAL (NORMAL)
[2019-05-07 16:30] LABS: UR EPITHELIAL CELLS <10 /HPF (<10); URINE BACTERIA NEGATIVE /HPF; URINE RBC <10 /HPF (<10)
[2019-05-07 16:40] LABS: URINE CASTS GRANULAR PRESENT; URINE CRYSTALS NONE SEEN; URINE YEAST PRESENT
[2019-05-07] MEDS ORDERED: XYLOCAINE-MPF 2% ONE (16:53)
[2019-05-07] MEDS ORDERED: FENTANYL ONE (16:53)
[2019-05-07] MEDS ORDERED: ZOFRAN ONE ×2 (16:53→17:47)
[2019-05-07] MEDS ORDERED: DIPRIVAN 1% ONE (16:53)
[2019-05-07] MEDS ORDERED: QUELICIN (DOSE) ONE (16:53)
[2019-05-07] MEDS ORDERED: DECADRON ONE (17:47)
[2019-05-07] MEDS: D5W 1,000 ML ONE ×2 (18:16→20:02)
--- NOTE | 2019-05-07 18:19 | INFECTIOUS DISEASE CONSULT REP ---
DATE: 05/07/2019 CONCLUSION: The patient has a large area in her right thigh which appears infected and I think this is responsible for her increasing white blood cell count. Patient appears to have oral candidiasis which she has most likely because she has been on a lot of antibiotics. RECOMMENDATIONS: I agree with treating the patient with Zyvox. I have discontinued cefepime and placed the patient on Zosyn. Also, a CAT scan of the pelvis and thigh has been ordered. I am going to order nystatin swish and swallow. DISCUSSION: The patient tells me that a week ago she had an infection in her left middle finger. It was incised and drained but she says sometimes it still does have pus in it. Two weeks ago she started having some cough and dyspnea, also anorexia and she had developed swelling of the right thigh, which was tender to the touch and also she could barely walk because of the pain she had in her right thigh. The patient's studies thus far show a CBC with a white count of 41,920, hemoglobin 10.2, platelet count 297,000. Blood gases show a pH of 7.43, a PO2 of 76, and a pCO2 of 39. Creatinine is 1.7. GFR is 40. Alkaline phosphatase is 179. Blood cultures are negative. CT scan of the chest shows a left basilar atelectasis/pneumonia. The patient has an infected finger, which was drained about a week ago. The finger still looks swollen and somewhat fluctuant and there could still be infection present and she may have osteomyelitis as well. Also the patient's CT scan shows that she may have pneumonia in the left lung which could be responsible for her cough and dyspnea. PAST MEDICAL HISTORY/REVIEW OF SYSTEMS: Eyes and ears: She sees and hears well. Neck: No stiffness. Respiratory: See present illness. Cardiac: No chest pain or palpitations. GI: The patient in the past 2 weeks has not had much of an appetite. She is not vomiting and she does not have diarrhea. : No dysuria or flank pain. 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 She has had a tubal ligation and hysterectomy. PREVIOUS HOSPITALIZATIONS AND OPERATIONS: The patient has had 2 labor and deliveries, tubal ligation, a hysterectomy, placement of coronary artery stents and mitral valve replacement. MEDICAL DISEASES: Positive for obesity, diabetes mellitus, hypertension, myocardial infarction, cerebral vascular accident, coronary artery disease and an abnormal mitral valve which had to be replaced, hyperlipidemia and gastroesophageal reflux disease. INFECTIOUS DISEASE HISTORY: Positive for pneumonia and left middle finger infection. FAMILY HISTORY: Positive for diabetes mellitus, hypertension, myocardial infarction, and stroke. SOCIAL HISTORY: [place]. She has a dog and a cat for pets. She does not smoke cigarettes, drink alcoholic beverages or abuse drugs. ALLERGIES: Her chart lists no known drug allergies. MEDICATIONS: Taken at home include amiodarone, Lipitor, furosemide, glipizide, metformin, pantoprazole. PHYSICAL EXAMINATION: Vital Signs: Temperature is 98.7 degrees, pulse 113, respirations 20, blood pressure is 125/79. Patient weighs 290 pounds. General: This is an obese, young female. She is in no acute distress. Head/eyes/ears/nose/throat: She can hear my spoken words and see near objects. She does have some white coating on her tongue that I think is due to candidiasis. Neck: No meningismus. Lungs: Clear to auscultation. Cardiovascular: Heart rate is regular. Abdomen: Soft and nontender. Extremities: The patient's right thigh has a large indurated tender area with peaud'orange skin. It did not appear to me to be going into the patient's perineum or rectum. Neurologic: Patient is alert. She can move her extremities. There is no tremor. Her sensation is intact to touch. Her memory as regarding her medical history is intact. Thank you for the consult. cc: Dayday Bradshaw MD MTDD
--- NOTE | 2019-05-07 18:30 | PROGRESS NOTE ---
DATE: 05/07/2019 SUBJECTIVE: This morning, Ms. Negrete refers to continue to be hurting especially in the right middle thigh. She has also been coughing. OBJECTIVE: Vital signs: Blood pressure is 119/77, pulse of 115, respirations 14, temperature 98.8 degrees. The patient has been quite tachycardic for the most part. General: Ms. Negrete is a 39-year-old female. She is in bed. No distress. Mucosa is pink and moist. Anicteric. Acyanotic. Neck: Supple. Chest: There is good air entry bilateral. A few crackles in the posterior lung valentine bilaterally. Cardiovascular: Tachycardic but regular. No murmurs, no rubs, no gallops. There is an old sternotomy scar on the anterior chest wall. Gastrointestinal: Abdomen is soft, nontender. Bowel sounds are present. Extremities: No pedal edema. There is some swelling over the right medial thigh which is extremely tender. It feels really tough. I did not feel any fluctuations. I did this exam in the presence and with Dr. Bradshaw. The left 3rd digit continues to be remarkably swollen. The distal part seems to be extruding some purulence. LABORATORY DATA: White cell count is 41.92, hemoglobin is 10.2, platelet count of 297,000. Chemistry is also reviewed. Creatinine has gone up to 1.7 this morning. Glucose is 117. Rest of chemistry is unremarkable. Procalcitonin is elevated at 0.51. A CT scan of the right lower extremity shows gas-forming cellulitis and early abscess formation in the subcutaneous fat of the medial thigh. ASSESSMENT: 1. Acute hypoxemic respiratory failure secondary to multifocal pneumonia. Patient is on antimicrobial coverage. 2. Left 3rd digit paronychia noted. Surgery is on board. 3. Right medial thigh gas cellulitis with early abscess formation. Surgery is aware. I have just spoken with Dr. Ariza. There is a plan to send her to OR later on today or 1st thing tomorrow morning. The patient is on antimicrobial coverage. 4. Uncontrolled diabetes mellitus. Presenting A1c was 12.8. Patient is currently on insulin regimen. 5. History of mitral valve valvulopathy, patient is status post bioprosthetic mitral valve replacement. PLAN: In general, I think Ms. Negrete continues to be clinically sick. This morning, both Dr. Bradshaw and myself examined the thigh and it is felt that the white cell elevation is coming from the thigh more than the finger. We did a CT scan without contrast and it shows that there is some cellulitis. There is gas and there is early abscess formation. I have discussed this findings also with Dr. Ariza and there is a plan to take her either late this evening or tomorrow morning for I and D. cc: Edison Norris MD
[2019-05-07] MEDS: HUMULIN R SUBQ SCH (20:45)
[2019-05-07] MEDS: LIPITOR PO SCH (20:45)
--- NOTE | 2019-05-07 22:07 | NEUROLOGY PROGRESS NOTE ---
DATE: 05/07/2019 Ms. Negrete continues to have weakness in the legs. Her nerve conduction study shows electrophysiologically severe peripheral neuropathy in the legs. There are some demyelinating features which might raise concern for Guillain-[place] but still not much absolutely definite clinical deficit. In light of the infection which needs to be treated, I am reluctant to add IV immunoglobulin or to treat her with steroids. Her clinical course has been very insidious and if she does have an inflammatory demyelinating polyneuropathy, this may be subacute and not acute inflammatory demyelinating polyneuropathy (Guillain-[place]), I do not think we have to do anything urgently. Depending on her course after the infection is treated, we might consider further workup and treatment. Thanks for asking Neurology to see Ms. Negrete. cc: MD MCKENZIE Rocha III
--- NOTE | 2019-05-07 22:29 | GENERAL SURGERY PROGRESS NOTE ---
DATE: 05/07/2019 This is a 39-year-old female who has been in the hospital for several days. She developed thigh swelling, been evaluated by Dr. Ariza. She had a CT scan obtained this afternoon that showed a gas- forming fluid collection in the subcutaneous fat of the medial thigh with cellulitis, consistent with abscess. It is adjacent to the vastus lateralis and is at least 14 cm x 9.2 cm. She has had persistent pain related to this over the last couple days. She has tachycardia in the one-teens. No fevers. She is diabetic. Her infection count has steadily climbed up to 41.92. She had a finger infection, as well, has been improved. Her hemoglobin A1c is 12.8. Her creatinine has slowly risen. It is up to 1.7 and her sodium has been downtrending as well. Blood cultures have been negative, most recently drawn on the . On exam, she is alert. She has a sinus tachycardia. She, on musculoskeletal exam, has an indurated area of skin darkening that corresponds to the area noted on CT scan in her medial thigh on the right side. Her extremities are otherwise well-perfused. ASSESSMENT AND PLAN: A 39-year-old female with deep complicated abscess of the right thigh. It is a gas-containing fluid collection. She has a significant leukocytosis up to 41 with a slowly downtrending sodium and, in the setting of poorly controlled diabetes, I worry about a necrotizing process impending. I have discussed this with the patient, as well as our anesthesiologist, who have elected to proceed with incision and drainage of the right thigh abscess this evening to provide source control and to promote further healing resolution, as well as control of her symptoms as she is having quite severe pain. I have discussed the risks and benefits with the patient, bleeding, infection, need for subsequent operations, delayed healing and damage to surrounding structures. She understands all this and consents. We will go the operating room this evening for incision and drainage. cc: Jose Daniel Alvarez MD
--- NOTE | 2019-05-08 00:23 | PULMONOLOGY PROGRESS NOTE ---
DATE: 05/07/2019 SUBJECTIVE: Ms. Negrete states that she is not feeling so well today. She continues to cough and her right thigh hurts. OBJECTIVE: Vital Signs: Blood pressure is 125/80 with a heart rate of 104, respirations are 17, temperature is 98.8 degrees oral with room air saturations 99 to 100 percent. Cardiovascular: Regular rate and rhythm. S1 and S2 are appreciated. Pulmonary: She does have some bibasilar crackles. Chest rises and falls symmetric with respiration. Gastrointestinal: Abdomen is soft, nontender, nondistended with bowel sounds in all 4 quadrants. Neurologic: She is alert and oriented x3. Extremities: She has no pedal edema. She does have tenderness to her right medial thigh. LABORATORIES: 1. WBC is 41.9 with hemoglobin 10.2, hematocrit 33.2, platelets of 297,000. Sodium is 133, potassium 4.3, BUN 34, creatinine 1.7 with a glucose of 71. Urinalysis is essentially negative. ABGs, pH is 7.43 with pCO2 of 39, PO2 76, and bicarbonate of 26.1. This is on 3 L nasal cannula. 2. Lower extremity CT of the right leg revealed gas-forming cellulitis and early abscess in the subcutaneous fat of the medial right thigh. 3. CT of the pelvis revealed no definite evidence of intrapelvic infection or abnormal fluid collections. Subcutaneous edema on the left. Possibility of cellulitis cannot be excluded. ASSESSMENT 1. Possible pneumonia with left lower lobe subsegmental atelectasis and right lower lobe subsegmental atelectasis. 2. Left upper extremity 3rd digit paronychia. 3. Worsening leukocytosis. 4. Abscess subcutaneous fat in the medial right thigh. 5. Uncontrolled diabetes mellitus. 6. 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 We will continue with supplemental oxygen as needed with bronchodilators. PLAN: supplemental oxygen as well as bronchodilators Incentive spirometry Up in chair tid & prn of Zyvox and Zosyn Further treatment per primary team . I&D R. thigh abscess tomorrow per general surgery Plan was discussed with Dr. Gil. Dictated by MAICOL Olvera for Bryce Gil MD cc: MAICOL Olvera MD [facility]
[2019-05-08] MEDS: ZOSYN 3.375 GM in NS 50 ML IV SCH ×6 (01:45→20:46)
--- NOTE | 2019-05-08 03:29 | OPERATIVE NOTE ---
PROCEDURE DATE: 05/07/2019 PREOPERATIVE DIAGNOSIS: Complicated deep abscess of the right medial thigh. POSTOPERATIVE DIAGNOSIS: Complicated deep abscess of the right medial thigh. PROCEDURE PERFORMED: Incision and drainage of right medial thigh abscess down to and including the muscle and the muscle fascia. ANESTHESIA: General. INDICATIONS: A 39-year-old female with diabetes. She was admitted with infection left finger. She had persistent worsening leukocytosis with decrease in her sodium and a CT scan that showed a gas and fluid containing collection extending from either her right-sided leg into her mid to right distal thigh medially. OPERATIVE FINDINGS: There was a large abscess cavity extending up to the inguinal fold in right- sided labia down the mid thigh down to the muscle fascia. The muscle seemed perfused. There is no khurram necrosis OPERATIVE NOTE: Risks, benefits and alternatives were discussed with patient, she consented to the procedure. She was seen preoperatively and surgical site was marked. She was taken to the operating room, placed supine position. General anesthesia induced. She was gently frog-legged and her leg was prepped with Betadine and draped in usual fashion. After a time-out, I made a longitudinal incision of the area of most induration and entered the abscess cavity, which was deep to the subcutaneous adipose tissue overlying the muscle fascia. We disrupted loculations proximally and distally. A large amount of purulent material was expressed. We took cultures, both Gram stain and anaerobic and aerobic cultures. Counter incision made proximally and a [place] drain inserted through this and secured. We irrigated the wound copiously, noting hemostasis. There was a branch off the greater saphenous vein that we had to ligate with 3-0 Vicryl sutures to obtain hemostasis. It was then packed with Vashe gauze, dressing was applied. She was awoken and transferred to recovery. There was no family available. cc: Jose Daniel Alvarez MD
[2019-05-08] MEDS: XOPENEX NEB INH PRN ×4 (04:13→22:30)
[2019-05-08] MEDS: NS NEB INH SCH ×2 (04:14→16:53)
[2019-05-08] MEDS: PROTONIX PO SCH ×2 (05:45→07:15)
[2019-05-08 06:07] LABS: BASO# 0.05 X1000 (0.0-0.2); BASO% 0.1 % (0.0-0.8); HEMATOCRIT 30.7 % (37.0-47.0); HEMOGLOBIN 9.4 g/dL (12.0-16.0); IMM GRAN% 1.1 % (0.0-0.5); LYMPH# 0.64 X1000 (1.2-3.4); LYMPH% 1.4 % (20.5-51.1); MCHC 30.6 g/dL (33-37); MCV 94.8 FL (81-99); MONO# 0.91 X1000 (0.11-0.59); MPV 10.6 FL (7.4-10.4); NEUT# 43.07 X1000 (1.4-6.5); NEUT% 95.4 % (42.2-75.2); PLT 258 X1000 (130-400); RBC 3.24 XMIL (4.2-5.4); RDW 13.3 % (11.5-14.5); WBC 45.17 X1000 (4.8-10.8)
[2019-05-08 06:37] LABS: ALBUMIN 2.1 g/dL (3.5-5.0); CALCIUM 8.7 mg/dL (8.8-10.2); CREATININE 1.7 mg/dL (0.5-0.9); PHOSPHORUS 4.6 mg/dL (2.7-4.5); POTASSIUM 5.2 mmol/L (3.5-5.1)
[2019-05-08 07:49] LABS: BANDS 6 % (0-1); LYMPHS 2 % (21-51); SEGS 92 % (42-75)
[2019-05-08] MEDS: ZYVOX 600 MG/D5W 600 MG/300 ML IVPB IV SCH ×2 (08:39→20:46)
[2019-05-08] MEDS: CORDARONE PO SCH (08:40)
[2019-05-08] MEDS: LASIX PO SCH ×2 (08:40→20:47)
[2019-05-08] MEDS: KLOR-CON PO SCH (08:40)
[2019-05-08] MEDS: MYCOSTATIN SUSP PO SCH ×4 (08:41→20:47)
[2019-05-08] MEDS: LANTUS INSULIN SUBQ SCH (08:41)
[2019-05-08] MEDS: HUMALOG SUBQ SCH ×3 (08:41→16:58)
[2019-05-08] MEDS: MUCOMYST 20% INH SCH ×2 (09:34→22:30)
[2019-05-08] MEDS: HUMULIN R SUBQ SCH ×4 (10:09→20:55)
[2019-05-08] MEDS ORDERED: LOVENOX SUBQ SCH (10:30)
[2019-05-08] MEDS: HEPARIN SUBQ SCH ×2 (14:05→20:47)
[2019-05-08] MEDS: NORCO-5 PO PRN ×2 (14:11→19:41)
--- NOTE | 2019-05-08 15:22 | PROGRESS NOTE ---
DATE: 05/08/2019 SUBJECTIVE: This morning Ms. Negrete refers to be doing fair. She underwent I D of the right medial thigh and according to her, it feels a whole lot better. The pain has significantly improved. Ms. Negrete continues to be coughing and bringing out some clear grayish expectoration. OBJECTIVE: Vital signs: Blood pressure is 116/93, pulse of 88, respiration is 18, temperature 97.6 degrees. Patient is saturating 98%. General: Ms. Negrete is a 39-year-old female. She is in bed, no distress. Mucosa is pink and moist. Anicteric. Acyanotic. Neck: Supple. Chest: Good air entry bilateral. A few crackles in the posterior lung valentine. Cardiovascular: Regular rate and rhythm. No murmurs, no rubs, no gallops. There is an old sternotomy scar on the anterior chest wall. GI: Abdomen is soft, nontender. Bowel sounds present. There is a dressing over the right medial thigh, but the swelling and the tenderness has significantly gotten better. The left third digit continues to be slightly swollen. LABORATORY DATA: WBC is up to 45.17, hemoglobin is 9.4, platelet count of 258,000. Chemistry is also reviewed. Potassium is 5.2, creatinine is 1.7. So far, the thigh culture has been unremarkable. The operative report shows that the procedure that was done was I D of right medial thigh abscess down to and including the muscle and the muscle fascia. ASSESSMENT: 1. Acute hypoxemic respiratory failure secondary to multifocal pneumonia. Patient is on antimicrobial therapy. 2. Left 3rd digit paronychia, noted improving. 3. Right medial thigh cellulitis with abscess. The patient is status post I D. Cultures so far have been negative. Patient feels better. 4. Uncontrolled diabetes mellitus with presenting A1c of 12.8. The patient is on insulin regimen, is doing well. 5. History of mitral valve valvulopathy status post bioprosthetic mitral valve replacement. 6. Acute on chronic kidney injury. Creatinine is 1.7, has been fairly stable for the past 2 days. cc: Edison Norris MD
--- NOTE | 2019-05-08 15:36 | GENERAL SURGERY PROGRESS NOTE ---
DATE: 05/08/2019 SUBJECTIVE: Feeling okay. Leg feels better. Some serosanguineous drainage. OBJECTIVE: Vital Signs: I do not see any fevers documented overnight. Pulse 94, blood pressure 125/95. LABORATORY DATA: White count if up to 45, hematocrit is 30. A blood glucose remain in the 200s. Creatinine is 1.7. ASSESSMENT AND PLAN: This is a 39-year-old female with multiple ongoing medical issues. She has had a large thigh abscess that she is now status post drainage of. Will keep her packing in today for hemostatic purposes. She has a Jose drain in place and it seemed to be adequately drained. The skin is well perfused. There is no necrosis and I do not see a lot of gross purulence at this juncture. Cultures are pending. She is on antibiotics for pneumonia and a finger infection. We will follow her along with dressing changes. I have talked to the nurse about this. cc: Jose Daniel Alvarez MD
--- NOTE | 2019-05-08 17:50 | PULMONOLOGY PROGRESS NOTE ---
DATE: 05/08/2019 SUBJECTIVE: The patient is lying on the bed watching TV with no complaints. She is dozing off to sleep OBJECTIVE: Vital Signs: Blood pressure is 116/93 with heart rate of 88, respirations 18, temperature is 97.6 degrees axillary with O2 saturations that are 98 to 100% on Venturi mask. Cardiovascular: Regular rate and rhythm. S1 and S2 appreciated. Pulmonary: Breath sounds have some expiratory wheezes. Chest rises and falls symmetric respiration. Chest wall is nontender to palpation. Gastrointestinal: Abdomen large, soft, nontender, nondistended with bowel sounds in all 4 quadrants. Neurologic: She is awake, alert . Extremities: No pedal edema. Dressing is dry and intact to her right thigh. LAB: WBC is 45 with hemoglobin 9.4, hematocrit 30.7 and platelets of 258,000. Sodium 132, potassium 5.2, BUN 35, creatinine 1.7, glucose of 204. ASSESSMENT AND PLAN: 1. Possible pneumonia with lower lobe segmental atelectasis and right lower lobe subsegmental atelectasis. 2. Abscess right thigh status post incision and drainage. 3. Left upper extremity 3rd paronychia. 4. Worsening leukocytosis secondary to abscess. 5. Uncontrolled diabetes mellitus. 6. History valvulopathy status post bioprosthetic mitral valve replacement. PLAN: supplemental oxygen as well as bronchodilators Incentive spirometry Up in chair tid & prn of Zyvox and Zosyn Further treatment per primary team . Plan was discussed with Dr. Gil. Dictated by MAICOL Olvera for Bryce Gil MD cc: MAICOL Olvera MD [facility]
[2019-05-08] MEDS: LIPITOR PO SCH (20:47)
[2019-05-09] MEDS: ZOSYN 3.375 GM in NS 50 ML IV SCH ×4 (02:14→11:48)
[2019-05-09] MEDS: NORCO-5 PO PRN ×3 (03:12→17:31)
[2019-05-09] MEDS: HEPARIN SUBQ SCH ×3 (05:02→20:50)
[2019-05-09] MEDS: PROTONIX PO SCH ×2 (05:02→07:24)
[2019-05-09 07:31] LABS: BASO# 0.02 X1000 (0.0-0.2); BASO% 0.1 % (0.0-0.8); EOS# 0.01 X1000 (0.0-0.7); HEMATOCRIT 28.4 % (37.0-47.0); HEMOGLOBIN 8.7 g/dL (12.0-16.0); IMM GRAN# 0.32 X1000 (0.0-0.04); LYMPH# 0.96 X1000 (1.2-3.4); LYMPH% 2.9 % (20.5-51.1); MCH 29.2 PG (27-31); MCHC 30.6 g/dL (33-37); MCV 95.3 FL (81-99); MONO% 5.1 % (1.7-9.3); NEUT# 30.64 X1000 (1.4-6.5); NEUT% 90.9 % (42.2-75.2); PLT 250 X1000 (130-400); RBC 2.98 XMIL (4.2-5.4); WBC 33.65 X1000 (4.8-10.8)
[2019-05-09] MEDS: ZYVOX 600 MG/D5W 600 MG/300 ML IVPB IV SCH (08:01)
[2019-05-09 08:02] LABS: ALBUMIN 2.1 g/dL (3.5-5.0); CALCIUM 8.4 mg/dL (8.8-10.2); POTASSIUM 4.2 mmol/L (3.5-5.1)
[2019-05-09] MEDS: MYCOSTATIN SUSP PO SCH ×4 (08:03→20:50)
[2019-05-09] MEDS: KLOR-CON PO SCH (08:03)
[2019-05-09] MEDS: CORDARONE PO SCH (08:04)
[2019-05-09] MEDS: LASIX PO SCH (08:04)
[2019-05-09] MEDS: HUMALOG SUBQ SCH ×3 (08:04→17:38)
[2019-05-09] MEDS: LANTUS INSULIN SUBQ SCH (08:04)
[2019-05-09] MEDS: HUMULIN R SUBQ SCH ×4 (08:05→20:49)
[2019-05-09] MEDS: MUCOMYST 20% INH SCH ×2 (08:15→19:34)
[2019-05-09] MEDS: XOPENEX NEB INH PRN ×2 (08:15→19:34)
[2019-05-09 09:21] LABS: BANDS 2 % (0-1); HYPOCHROM 1+; LYMPHS 4 % (21-51); SEGS 94 % (42-75)
--- NOTE | 2019-05-09 10:54 | PROGRESS NOTE ---
DATE: 05/09/2019 SUBJECTIVE: This morning, Ms. Negrete refers to be doing a lot better. She said the swelling at the right medial thigh feels a lot better. OBJECTIVE: Vital Signs: Blood pressure is 120/91, pulse of 84, respirations are 16, temperature is 97.5 degrees. General Examination: Ms. Negrete is a 39-year-old, -B[place] female. She is in bed. No distress. HEENT: Mucosa is pink and slightly dry. Anicteric. Acyanotic. Neck: Supple. Chest: Good air entry bilaterally. A few crackles in the posterior lung valentine. No wheezing. Cardiovascular: Regular rate and rhythm. No murmurs, no rubs, no gallops. There is an old sternotomy scar on the anterior chest wall. GI: Abdomen was soft. Bowel sounds present. Extremities: The right medial thigh still has some dressing over the surgical incision. The swelling looks remarkably reduced. The left third digit is also minimally swollen. BANDAGE MAKER: The patient is awake, alert, and oriented. There is no focal deficit. Laboratory Data: WBC is down to 33.65, hemoglobin is 8.7, platelet count of 250,000. Chemistry is also reviewed. Creatinine is 2.0, slightly elevated. The right thigh is growing gram-positive cocci, just updated today. ASSESSMENT AND PLAN: 1. Acute hypoxemic respiratory failure on admission secondary to multifocal pneumonia. The patient is breathing a lot better. Continues to be on Venturi mask but she is saturating 100% and we are going to start titrating her oxygen needs down. 2. Left third digit paronychia, improving. 3. Right medial thigh cellulitis with abscess. The patient is status post incision and drainage. Cultures have started growing a gram-positive cocci. The patient is currently on Zyvox and Zosyn. Infectious disease is on board. 4. Uncontrolled diabetes mellitus with presenting A1c of 12.8. Patient is on insulin regimen. Glucose level is a lot better. 5. History of mitral valve valvulopathy, status post bioprosthetic mitral valve replacement. 6. Acute on chronic renal failure. Creatinine is up to 2. We are going to get urine studies and a renal ultrasound on her. It is documented that she is currently positive balance of 10,207. We will give further recommendations once we have the renal studies back. If the creatinine continues to get any worse, we will consult nephrology tomorrow. cc: Edison Norris MD
[2019-05-09] MEDS ORDERED: EPSOM SALT TOP ONE (11:29)
--- NOTE | 2019-05-09 13:08 | PROGRESS NOTE ---
DATE: 05/09/2019 PRESENT ILLNESS: The patient is status post drainage of a large right thigh abscess. The patient also has an infected left middle finger. The patient as oral candidiasis and pneumonia. MEDICATIONS: I have discontinued Zosyn and changed Zyvox from IV to p.o. Also cefepime was ordered. PHYSICAL EXAMINATION: Vital Signs: Temperature is 98 degrees, pulse 84, respirations 16, blood pressure 120/91. General: This is an obese young female who is in no acute distress. Head/eyes/ears/nose/throat: She can hear my spoken words and see near objects. The white coating on her tongue is receding. Neck: No stiffness. Lungs: Clear to auscultation. Cardiovascular: Regular heart rate. Abdomen: Soft and nontender. Extremities: The patient's left middle finger is swollen, and it does have some areas distally that appear to be fluctuant. The patient's left thigh mass is getting smaller, and peau d'orange appearance of the skin is clearing up. There is a dressing over the incision where the abscess was drained. Neurologic: Patient is alert. She can move her extremities, but she is very weak. There is no tremor. LAB AND X-RAY: CBC shows a white count that is 33,650, hemoglobin 8.7, platelet count 250,000. The patient's procalcitonin is 0.51. The creatinine is 2. The GFR is 33. Culture from the patient's thigh is growing a gram-positive coccus. There is no new radiographic study. ASSESSMENT AND PLAN: 1. Patient has right thigh abscess which has been drained. The plan is to continue with Zyvox which is and the 7th day of treatment with it pending the culture results. 1. As for the patient's left middle finger, she would like to soak it in Epsom salts, and I have ordered for that to be done every 12 hours. Also tomorrow, I am going to get an x-ray of her left middle finger and a bone scan of it as well. 2. I am going to continue with the nystatin also for the patient's oral candidiasis. 3. I am also going to start the patient on cefepime for treatment of the patient's pneumonia as well as Zyvox. COMORBIDITIES: The patient is obese, and she is a diabetic. She has had a myocardial infarction, cerebrovascular accident, an abnormal mitral valve which had to be replaced and gastroesophageal reflux disease. cc: Dayday Bradshaw MD [facility]
--- NOTE | 2019-05-09 14:42 | GENERAL SURGERY PROGRESS NOTE ---
DATE: 05/09/2019 SUBJECTIVE: She is feeling better. Pain is improved. I do not see any fevers documented. Heart rate is better. She remains on supplemental O2. OBJECTIVE: General: She is alert. Cardiovascular: Normal rate. Pulmonary: Nasal cannula but no distress. Extremities: Right medial thigh incision is less indurated, the tissues healthy with no necrosis. There is no purulence. LABS: White count downtrending down to 33; hematocrit is 28. Creatinine is 2.0. Glucose remains elevated. ASSESSMENT AND PLAN: A 39-year-old female. Right medial thigh abscess is large, it is in the muscle. She has gram-positive cocci growing out of her cultures. She is on appropriate antibiotics. We will follow along. Continue local wound care as the nurses are doing. cc: Jose Daniel Alvarez MD
--- NOTE | 2019-05-09 15:07 | PULMONOLOGY PROGRESS NOTE ---
DATE: 05/09/2019 SUBJECTIVE: Ms Negrete states that she feels better today. She said her right thigh has less swelling and it has less pain. OBJECTIVE: Vital Signs: Blood pressure is 120/90 with a heart rate of 85, respirations are 17, temperature is 97.5 degrees, with O2 saturations that are 100% on a Venturi mask. HEENT: Head is normocephalic, atraumatic. Pupils are equal, round, react to light. EOMs are intact. Sclerae anicteric. Mucous membranes are dry. Neck: Supple with trachea in midline. Cardiovascular: Regular rate and rhythm. S1 and S2 appreciated. Calves are nontender bilateral with peripheral pulses palpable x4 extremities. Pulmonary: She does have some bibasilar crackles. Chest rises and falls symmetrically with respiration. Chest wall is nontender to palpation. Gastrointestinal: Abdomen is soft, nondistended, nontender with bowel sounds in all four quadrants. Extremities: Right thigh has a dressing that is dry and intact. She has continued with swelling but less than yesterday. She also has swelling to her third digit of her right hand. Neurologic: She is alert and oriented x3. LABS: WBC is 33.6 with hemoglobin 8.7, hematocrit 28.4, platelets of 250,000. Sodium 132, potassium 4.2, BUN 46, creatinine 2, with a glucose of 140. Right thigh wound reveals gram- positive cocci. ASSESSMENT: 1. Possible pneumonia with right lower lobe segmental atelectasis. 2. Abscess right thigh, status post incision and drainage, currently growing gram-positive cocci bacteria. 3. Left hand third finger paronychia. 4. Improving leukocytosis. 5. Uncontrolled diabetes mellitus. 6. History of valvulopathy, status post bioprosthetic mitral valve replacement. PLAN: supplemental oxygen and bronchodilators antibiotic coverage of Zyvox and Cefepime Continue incentive spirometer. up in the chair three times a day with meals and p.r.n. Plan was discussed with Dr. Gil. Dictated by MAICOL Olvera for Bryce Gil MD cc: MAICOL Olvera MD [facility]
[2019-05-09] MEDS: MAXIPIME 2 GM/NS 2 GM/100 ML IVPB IV SCH (15:57)
[2019-05-09 19:02] LABS: UR CREAT RANDOM 59.9 mg/dL (11-20)
--- NOTE | 2019-05-09 20:20 | Diag Imaging Result Doc PS360 ---
EXAM: US RENAL 2 (RETROPER) COMPLETE 05/09/2019 HISTORY: cuca/arf TECHNIQUE: Renal ultrasound COMMENT: The kidneys are without evidence of hydronephrosis or mass. Urinary bladder is not distended. The right kidney measures 13.2 x 5.9 x 5.4 cm. The left is 11.8 x 5.5 x 5.2 cm. IMPRESSION: No evidence of obstructive uropathy. Electronically signed by Santiago Putnam 05/09/2019 8:17 PM
[2019-05-09] MEDS: ZYVOX PO SCH ×2 (20:49→20:50)
[2019-05-09] MEDS: LIPITOR PO SCH (20:50)
[2019-05-09] MEDS: EPSOM SALT TOP SCH (20:50)
[2019-05-10] MEDS: MAXIPIME 2 GM/NS 2 GM/100 ML IVPB IV SCH (02:46)
[2019-05-10] MEDS: NORCO-5 PO PRN ×2 (03:29→22:17)
[2019-05-10] MEDS: HEPARIN SUBQ SCH ×3 (05:56→22:09)
[2019-05-10] MEDS: PROTONIX PO SCH (06:00)
--- NOTE | 2019-05-10 06:13 | GENERAL SURGERY PROGRESS NOTE ---
DATE: 05/10/2019 SUBJECTIVE: Patient seems to be doing okay. Reviewed notes from the weekend. Dr. Alvarez did drain an abscess in her right thigh. [facility] secondary to respiratory issues, but she is feeling better now. She says she is breathing better. OBJECTIVE: Vital Signs: Patient is currently afebrile. Her vital signs are stable. General: No acute distress. Cardiovascular: Regular rate and rhythm. Lungs: Grossly clear. Abdomen: Soft and nontender. Extremities: Right thigh reviewed. Packing removed. Overall, looks like it is healing. ASSESSMENT AND PLAN: A 39-year-old female status post incision and drainage of right thigh abscess. Postoperative state at this time. Continue local wound care. Continue wet-to-dry dressing changes. We will continue to monitor her. Microbiology has not speciated anything besides gram- positive cocci. cc: Jae Ariza MD
[2019-05-10 07:32] LABS: BASO# 0.02 X1000 (0.0-0.2); BASO% 0.1 % (0.0-0.8); HEMOGLOBIN 9.6 g/dL (12.0-16.0); IMM GRAN# 0.25 X1000 (0.0-0.04); IMM GRAN% 0.9 % (0.0-0.5); LYMPH# 0.95 X1000 (1.2-3.4); LYMPH% 3.6 % (20.5-51.1); MCH 28.7 PG (27-31); MCV 95.8 FL (81-99); MONO# 1.25 X1000 (0.11-0.59); MONO% 4.7 % (1.7-9.3); MPV 11.3 FL (7.4-10.4); NEUT% 90.7 % (42.2-75.2); PLT 248 X1000 (130-400); RBC 3.34 XMIL (4.2-5.4); RDW 13.1 % (11.5-14.5); WBC 26.37 X1000 (4.8-10.8)
[2019-05-10 08:02] LABS: ALBUMIN 2.3 g/dL (3.5-5.0); CREATININE 1.7 mg/dL (0.5-0.9); PHOSPHORUS 3.9 mg/dL (2.7-4.5); POTASSIUM 4.3 mmol/L (3.5-5.1)
[2019-05-10] MEDS: MUCOMYST 20% INH SCH ×2 (09:40→20:31)
[2019-05-10] MEDS: XOPENEX NEB INH PRN (09:40)
--- NOTE | 2019-05-10 09:45 | Diag Imaging Result Doc PS360 ---
HAND 2 VIEWS LEFT - 05/10/2019 INDICATION: Left middle finger osteomyelitis TECHNIQUE: COMPARISON: None FINDINGS: There is diffuse soft tissue swelling all throughout the middle finger. At the ulnar side of the distal phalanx, there is a small focal lucent area in the bone. This is suggestive of osteomyelitis. No fracture or dislocation. There is deformity of the pinky finger which appears to be chronic. IMPRESSION: Severe soft tissue swelling of the left middle finger. Small lucent area in the distal phalanx of the middle finger concerning for osteomyelitis. Electronically signed by Sean Clarke 05/10/2019 9:43 AM
--- NOTE | 2019-05-10 10:06 | PROVIDER PROGRESS NOTE ---
Progress Note Pulmonary additional note: I have seen and examined the case, reviewed the EMR, labs, latest images and other medical teams notes. Also reviewed the [employer] notes and signed necessary form(s). I have noted changes in condition if any from yesterday and did orders. Please see also signed progress sheet. Over the weekend she had thigh abscess drainage and stable on NC. She has fluctuation of creatinine. Prognosis: Guarded for now. Poorly controlled DM is a oysterman determinant. I reviewed latest notes from Dr. Ariza and DR. Norris. Pneumonia, with secondary compensated respiratory failure. sepsis. Thigh abscess post drainage and paronychia. Post MV repair. ID is seeing. I ordered CXR for am. I spent 33 minutes in this process.
[2019-05-10] MEDS: LANTUS INSULIN SUBQ SCH (10:10)
[2019-05-10] MEDS: HUMALOG SUBQ SCH ×3 (10:11→17:18)
[2019-05-10] MEDS: MYCOSTATIN SUSP PO SCH ×4 (10:11→22:09)
[2019-05-10] MEDS: KLOR-CON PO SCH (10:12)
[2019-05-10] MEDS: CORDARONE PO SCH (10:12)
[2019-05-10] MEDS: ZYVOX PO SCH (10:12)
[2019-05-10] MEDS: HUMULIN R SUBQ SCH ×4 (10:12→22:09)
[2019-05-10] MEDS: EPSOM SALT TOP SCH (10:12)
[2019-05-10 10:17] LABS: BANDS 2 % (0-1); LYMPHS 4 % (21-51); MONO 10 % (1-9); SEGS 84 % (42-75)
[2019-05-10] MEDS ORDERED: KEFLEX PO SCH (10:45)
--- NOTE | 2019-05-10 11:09 | PROGRESS NOTE ---
DATE: 05/10/2019 SUBJECTIVE: The patient seems to be more stable, she had an I and D of the right medial thigh, and as per the patient is much better. It is covered right now with a dressing. She has been coughing, but also is getting better. Her left middle finger is swollen compared with the rest of the fingers, and the x-ray of that hand showed severe tissue swelling of the left middle finger, and there is a small lucent area in the distal phalanx of the middle finger concerning for osteomyelitis. Case has been discussed with Infectious Disease Department. We will wait for the brittle phase bone scan. OBJECTIVE: Vital Signs: Temperature 98.2 degrees, pulse 97, respiratory rate 14, blood pressure 125/91, oxygen saturation 100% on 4 L of nasal cannula. HEENT: Head normocephalic, no trauma. PERRLA. Neck: Supple. No JVD. No masses. Central trachea. Chest: Some crepitus at the bases, probably a little bit of rhonchi also. Cardiovascular: RRR. Abdomen: Soft, nontender, nondistended. Positive bowel sounds. She has an old sternotomy scar on the anterior chest wall. Extremities: Her right medial aspect of her right thigh is covered with a dressing; it is swollen, but as per the patient is better. Her left middle finger is swollen. I do not see any drainage. Neurological: Awake, alert. She is oriented x3. No focal deficits. LABORATORY: WBC 26.3, hemoglobin 9.6, hematocrit 32, platelets 248. Sodium 137, potassium 4.3, chloride 100, bicarbonate 25. BUN 43, creatinine 1.7, glucose 120, calcium 9, phosphorus 3.9, albumin 2.3. ASSESSMENT AND PLAN: 1. Acute hypoxemic respiratory failure on admission secondary to multifocal pneumonia. The patient is breathing better. We will continue with antibiotics. She is on a nasal cannula at this moment, will monitor. Infectious Disease Department on board. 2. Left medial thigh cellulitis with abscess status post incision and drainage. We will continue with antibiotics. Culture showed Streptococcus anginosus, Infectious Disease Department following. 3. Left middle finger paronychia with possible osteomyelitis, triple phase bone scan has been ordered. We will wait for the results. 4. Uncontrolled type 2 diabetes with a hemoglobin A1c of 12.8. Continue with same management. She seems to be more stable. 5. History of mitral valvulopathy, status post bioprosthetic mitral valve replacement, aware. 6. Acute on chronic kidney disease, stable. We will continue to monitor. We will continue with the same medications. We will wait for the triple phase bone scan to rule out osteomyelitis of the left middle finger. Depending on that, we will discuss with the patient further treatment, which can be amputation versus long-term treatment with antibiotics for at least 6 weeks. cc: Brian Sanchez MD
--- NOTE | 2019-05-10 11:35 | PROVIDER PROGRESS NOTE ---
Progress Note Dr. Mchugh Progress Note/Pulmonary and or critical care We appreciated progress of care, Complications, change in diagnosis, and instructions to patient under direct supervision of Dr. Mchugh. Subjective: We note the level of consciousness, bed (chair) position, family presence (if any), level of lethargy, feeling of symptoms, and changes from baseline condition/symptom. The patient is lying in bed with no acute distress noted. She is on NC 3L with SaO2 100%. She states she is feeling better. She still has some dry cough, but has been improving. She denies any pain on chest with coughing or deep breathing. Her left third finger still swelling with pus noted around the nail bed and appears worse than last . Objective: Vital Signs: We reviewed EMR current values for Pulse rate, Blood pressure, Pulse rate, respiratory rate and Pulse oximetry. Also noted other values and trends if present (e.g. I/O, CVP). Vital Signs 05/09/19 14:22 05/09/19 15:51 05/09/19 19:35 Temperature 97.3 F L Pulse Rate 86 89 91 H Respiratory Rate 17 17 17 Blood Pressure 121/62 124/83 O2 Sat by Pulse Oximetry 100 100 100 05/09/19 20:00 05/10/19 00:00 05/10/19 03:17 Temperature 97.5 F L 98.4 F Pulse Rate 88 100 H 96 H Respiratory Rate 13 16 15 Blood Pressure 133/93 112/79 131/92 O2 Sat by Pulse Oximetry 100 100 100 05/10/19 08:00 05/10/19 11:17 Temperature 98.2 F 97.7 F Pulse Rate 97 H 95 H Respiratory Rate 14 15 Blood Pressure 125/91 110/77 O2 Sat by Pulse Oximetry 100 100 Intake & Output 05/09/19 05/10/19 05/10/19 19:59 07:59 19:59 Intake Total 260 / 500 240 / 500 Balance 260 / 500 240 / 500 Intake: Intake, Oral Amount 260 / 500 240 / 500 Other: Percent of Meal Consumed 0 Bites Only Number of Continent Voids Not 1 Measured Number of Bowel Movements 1 Bowel Movement Color and Liquid Character Green Physical Examination: General: Morbidly obese. Lying in bed with no acute distress noted. HEENT: Atraumatic. Normocephalic. Trachea [place]. Mucosa pink and dry. Chest: Even and unlabored. Symmetrical excursion. Clear to auscultation bilaterally. CVS: S1 S2. Abdomen: Non-tender. Soft. Obese. Bowel sounds present. Extremities: Right thigh dressing in place. LUE 3rd digit swelling. Neuro: Alert/oriented x3. Speech fluent. Follow commands. Labs and Radiology: Reviewed available labs and radiology values available at time of EMR review. Laboratory Results 05/09/19 05/09/19 05/09/19 12:50 16:30 16:30 WBC RBC Hgb Hct MCV MCH MCHC RDW Std Deviation Plt Count MPV Immature Gran % (Auto) Neut % (Auto) Lymph % (Auto) Parker % (Auto) Eos % (Auto) Baso % (Auto) Immature Gran # (Auto) Neut # (Auto) Lymph # (Auto) Parker # (Auto) Eos # (Auto) Baso # (Auto) Segmented Neutrophils Band Neutrophils Lymphocytes Monocytes Sodium Potassium Chloride Carbon Dioxide Anion Gap BUN Creatinine Estimated GFR/1.73 m2 BUN/Creatinine Ratio Glucose POC Glucose 117 H Calculated Osmolality Calcium Phosphorus Albumin Ur Eosinophil Smear NONE SEEN Ur Random Creatinine Ur Random Sodium Ur Random Urea Nitrogn 505 05/09/19 05/09/19 05/09/19 16:30 17:38 20:46 WBC RBC Hgb Hct MCV MCH MCHC RDW Std Deviation Plt Count MPV Immature Gran % (Auto) Neut % (Auto) Lymph % (Auto) Parker % (Auto) Eos % (Auto) Baso % (Auto) Immature Gran # (Auto) Neut # (Auto) Lymph # (Auto) Parker # (Auto) Eos # (Auto) Baso # (Auto) Segmented Neutrophils Band Neutrophils Lymphocytes Monocytes Sodium Potassium Chloride Carbon Dioxide Anion Gap BUN Creatinine Estimated GFR/1.73 m2 BUN/Creatinine Ratio Glucose POC Glucose 107 H 140 H Calculated Osmolality Calcium Phosphorus Albumin Ur Eosinophil Smear Ur Random Creatinine 59.9 H Ur Random Sodium 48 Ur Random Urea Nitrogn 05/10/19 05/10/19 05/10/19 00:27 06:15 06:15 WBC 26.37 H RBC 3.34 L Hgb 9.6 L Hct 32.0 L MCV 95.8 MCH 28.7 MCHC 30.0 L RDW Std Deviation 13.1 Plt Count 248 MPV 11.3 H Immature Gran % (Auto) 0.9 H Neut % (Auto) 90.7 H Lymph % (Auto) 3.6 L Parker % (Auto) 4.7 Eos % (Auto) 0.0 Baso % (Auto) 0.1 Immature Gran # (Auto) 0.25 H Neut # (Auto) 23.90 H Lymph # (Auto) 0.95 L Parker # (Auto) 1.25 H Eos # (Auto) 0.00 Baso # (Auto) 0.02 Segmented Neutrophils 84 H Band Neutrophils 2 H Lymphocytes 4 L Monocytes 10 H Sodium 137 Potassium 4.3 Chloride 100 Carbon Dioxide 25 Anion Gap 12 BUN 43 H Creatinine 1.7 H Estimated GFR/1.73 m2 40 BUN/Creatinine Ratio 25 Glucose 120 H POC Glucose 136 H Calculated Osmolality 286 Calcium 9.0 Phosphorus 3.9 Albumin 2.3 L Ur Eosinophil Smear Ur Random Creatinine Ur Random Sodium Ur Random Urea Nitrogn 05/10/19 09:35 WBC RBC Hgb Hct MCV MCH MCHC RDW Std Deviation Plt Count MPV Immature Gran % (Auto) Neut % (Auto) Lymph % (Auto) Parker % (Auto) Eos % (Auto) Baso % (Auto) Immature Gran # (Auto) Neut # (Auto) Lymph # (Auto) Parker # (Auto) Eos # (Auto) Baso # (Auto) Segmented Neutrophils Band Neutrophils Lymphocytes Monocytes Sodium Potassium Chloride Carbon Dioxide Anion Gap BUN Creatinine Estimated GFR/1.73 m2 BUN/Creatinine Ratio Glucose POC Glucose 123 H Calculated Osmolality Calcium Phosphorus Albumin Ur Eosinophil Smear Ur Random Creatinine Ur Random Sodium Ur Random Urea Nitrogn Dr. Mchugh evaluated and additional note below. Evaluation time in minutes: 34 minutes. Assessment: Acute hypoxemic respiratory failure. Improving. Pneumonia with LLL moderate subsegmental atelectasis and RLL mild subsegmental atelectasis per CT on 05/03/2019. LUE 3 digit paronychia with possible osteomyelitis. Morbid obesity. Uncontrolled diabetes. Right medial thigh cellulitis with a large abscess s/p I&D on 05/07/19, culture growing gram-positive cocci. Acute on chronic kidney disease. Plan: Continue current treatment and supportive care per admitting and other teams on the case. Antibiotics including cefepime and linezolid. Mucomyst. Bronchodilators Appropriate DVT and GI prophylaxis. Input was appreciated from Admitting MD and other teams on the case.
[2019-05-10] MEDS: ROBITUSSIN-DM PO PRN ×2 (11:59→22:47)
[2019-05-10] MEDS: KEFLEX PO SCH ×2 (12:00→22:09)
--- NOTE | 2019-05-10 12:35 | INFECTIOUS DISEASE PROGRESS NO ---
DATE: 05/10/2019 PRESENT ILLNESS: The patient is status post drainage of a large right thigh abscess. The patient also has an infected left middle finger and on x-ray done, there may be osteomyelitis involving the distal phalanx of the left middle finger. The patient also has oral candidiasis. MEDICATIONS: The patient is on p.o. Zyvox and IV cefepime. PHYSICAL EXAMINATION: Vital Signs: Temperature is 98.2 degrees, pulse 97, respirations 14, blood pressure 125/91. General: This is an obese, young female. She is in no acute distress. Head, Eyes, Ears, Nose, and Throat: She can hear my spoken words and see near objects. The patient has less white coating of her tongue. Neck: No pain with movement. Lungs: Clear to auscultation. Cardiovascular: Heart rate is regular. Abdomen: Soft and nontender. Extremities: The patient's right thigh is much less swollen and it is not tender. It does not have the peau d'orange characteristic of the skin. The patient's left middle finger is still somewhat swollen. It is not tender and there is no purulent drainage. Neurologic: The patient is alert. She can move her extremities but she is weak. There is no tremor. LAB AND X-RAY: X-ray of the patient's left hand shows possible osteomyelitis of the distal phalanx. The CBC shows a white count of 26,370, hemoglobin 9.6, platelet count of 248,000. Creatinine is 1.7. GFR is 40. Culture from the patient's thigh is growing Streptococcus anginosus. ASSESSMENT AND PLAN: I am going to put the patient on Keflex and stop Zyvox and cefepime. The results of the bone scan are still pending. The patient has a large right thigh abscess with associated cellulitis and possible osteomyelitis of the left middle finger. The patient is on Nystatin swish and swallow for oral candidiasis. COMORBIDITIES: The patient is obese. She also is a diabetic. She also has a mitral valve replacement and she also has gastroesophageal reflux disease. cc: MD MCKENZIE Jj
--- NOTE | 2019-05-10 13:25 | Diag Imaging Result Doc PS360 ---
3 PHASE BONE SCAN - 05/10/2019 INDICATION: Left middle finger osteomyelitis TECHNIQUE: Three phase bone scan of the left hand. 34 mCi of MDP was administered. COMPARISON: X-rays from earlier 05/10/2019 FINDINGS: There is severely increased perfusion and blood pool phase activity all throughout the middle finger soft tissues of the left hand. On the delayed phase imaging, there is intense hyperactive uptake at the distal phalanx base, and probably also the middle phalanx head. This corresponds with the x-ray imaging findings. IMPRESSION: Confirmation of osteomyelitis of the middle finger. Electronically signed by Sean Clarke 05/10/2019 1:23 PM
--- NOTE | 2019-05-10 15:19 | NEUROLOGY PROGRESS NOTE ---
DATE: 05/10/2019 SUBJECTIVE: Ms. Negrete reports much less discomfort and significantly improved strength in the right leg. She does not have any new complaints. I reviewed the records regarding drainage of the large right thigh abscess. She also has left 3rd finger infection with question of osteomyelitis and she has oral candidiasis and pneumonia. Her blood sugars have been 120s-200s in the last few days. A1c was 12.8% on admission. OBJECTIVE: On exam, while she is seated at the bedside, she demonstrates much better power in the hip flexors today than a few days ago. She still reports some discomfort with that maneuver on the right. IMPRESSION: Diabetes mellitus, likely chronic diabetic neuropathy, question of superimposed additional autoimmune polyneuropathy. In light of her stable course and improvement, I do not think we need to do anything more urgently from neurologic standpoint today. Further plans will depend on her progress. Thanks for asking Neurology to see Ms. Negrete. cc: MD MCKENZIE Rocha III
[2019-05-10] MEDS ORDERED: ZYVOX PO SCH (21:00)
[2019-05-10] MEDS: LIPITOR PO SCH (22:09)
[2019-05-11] MEDS ORDERED: CALMOSEPTINE OINTMENT TOP PRN (02:47)
[2019-05-11] MEDS: KEFLEX PO SCH ×2 (05:43→13:42)
[2019-05-11] MEDS: NORCO-5 PO PRN ×3 (05:44→22:52)
[2019-05-11] MEDS: HEPARIN SUBQ SCH ×3 (05:44→21:43)
[2019-05-11] MEDS: PROTONIX PO SCH (06:37)
[2019-05-11 07:20] LABS: BASO# 0.01 X1000 (0.0-0.2); HEMATOCRIT 30.8 % (37.0-47.0); HEMOGLOBIN 9.4 g/dL (12.0-16.0); IMM GRAN% 0.8 % (0.0-0.5); LYMPH# 1.12 X1000 (1.2-3.4); LYMPH% 4.7 % (20.5-51.1); MCH 28.7 PG (27-31); MCHC 30.5 g/dL (33-37); MCV 94.2 FL (81-99); MONO# 1.01 X1000 (0.11-0.59); MONO% 4.3 % (1.7-9.3); MPV 11.1 FL (7.4-10.4); NEUT# 21.32 X1000 (1.4-6.5); NEUT% 90.2 % (42.2-75.2); PLT 219 X1000 (130-400); RBC 3.27 XMIL (4.2-5.4); RDW 12.9 % (11.5-14.5); WBC 23.66 X1000 (4.8-10.8)
--- NOTE | 2019-05-11 07:41 | Diag Imaging Result Doc PS360 ---
EXAM: CHEST-1 VIEW INDICATION: SOB TECHNIQUE: One view COMPARISON: 05/03/2019 FINDINGS: Pulmonary venous congestion and central edema are approximately stable. No new consolidation is identified. Cardiac silhouette is stable. IMPRESSION: Stable chest. Electronically signed by Tripp Fisher 05/11/2019 7:39 AM
[2019-05-11 07:44] LABS: ALB/GLOB RATIO 0.6; ALBUMIN 2.4 g/dL (3.5-5.0); CALCIUM 8.7 mg/dL (8.8-10.2); CREATININE 1.5 mg/dL (0.5-0.9); PHOSPHORUS 2.5 mg/dL (2.7-4.5); POTASSIUM 4.4 mmol/L (3.5-5.1); TOTAL BILIRUBIN 0.38 mg/dL (0.20-1.00); TOTAL PROTEIN 6.7 g/dL (6.3-8.3)
[2019-05-11 08:17] LABS: LYMPHS 4 % (21-51); MONO 2 % (1-9); SEGS 92 % (42-75)
[2019-05-11] MEDS: MYCOSTATIN SUSP PO SCH ×4 (11:25→21:43)
[2019-05-11] MEDS: CORDARONE PO SCH (11:26)
[2019-05-11] MEDS: KLOR-CON PO SCH (11:26)
[2019-05-11] MEDS: LANTUS INSULIN SUBQ SCH (11:28)
[2019-05-11] MEDS: HUMULIN R SUBQ SCH ×3 (11:28→16:54)
[2019-05-11] MEDS: HUMALOG SUBQ SCH ×3 (11:28→16:54)
[2019-05-11] MEDS: EPSOM SALT TOP SCH (11:29)
[2019-05-11] MEDS: MUCOMYST 20% INH SCH ×2 (11:58→20:20)
--- NOTE | 2019-05-11 12:01 | PROVIDER PROGRESS NOTE ---
Progress Note Dr. Mchugh Progress Note/Pulmonary and or critical care We appreciated progress of care, Complications, change in diagnosis, and instructions to patient under direct supervision of Dr. Mchugh. Subjective: We note the level of consciousness, bed (chair) position, family presence (if any), level of lethargy, feeling of symptoms, and changes from baseline condition/symptom. The patient is lying in bed with no acute distress noted. She is still on NC 3L. She states she is feeling a little bit better. She still has some mild weak dry cough. She reports that she just took cough med and it helps some. She denies any pain on chest with coughing or deep breathing. Her left third finger still swelling with pus noted around the nail bed. Objective: Vital Signs: We reviewed EMR current values for Pulse rate, Blood pressure, Pulse rate, re spiratory rate and Pulse oximetry. Also noted other values and trends if present (e.g. I/O, CVP). Vital Signs 05/10/19 16:00 05/10/19 20:00 05/10/19 20:31 Temperature 98.4 F 98.6 F Pulse Rate 86 97 H Respiratory Rate 16 18 Blood Pressure 119/63 124/88 O2 Sat by Pulse Oximetry 100 99 98 05/11/19 00:00 05/11/19 04:00 05/11/19 07:18 Temperature 98.4 F 98.2 F 97.6 F Pulse Rate 96 H 92 H 98 H Respiratory Rate 20 20 15 Blood Pressure 126/90 122/89 127/79 O2 Sat by Pulse Oximetry 100 95 99 05/11/19 11:38 Temperature 97.9 F Pulse Rate 99 H Respiratory Rate 13 Blood Pressure 127/84 O2 Sat by Pulse Oximetry 100 Intake & Output 05/10/19 05/11/19 05/11/19 19:59 07:59 19:59 Intake Total 360 / 610 250 / 610 Output Total 300 / 700 400 / 700 Balance 60 / -90 -150 / -90 Intake: Intake, IV Amount 0 / 0 Intake, Oral Amount 360 / 610 250 / 610 Output: Output, Urine Void Amount 300 / 700 400 / 700 Other: Percent of Meal Consumed 25% Number of Bowel Movements 1 3 Bowel Movement Color and Liquid Character Brown Black/[place] Physical Examination: General: Morbidly obese. Lying in bed with no acute distress noted. HEENT: Atraumatic. Normocephalic. Trachea Midline. Mucosa pink and dry. Chest: Even and unlabored. Symmetrical excursion. Clear to auscultation bilaterally. CVS: S1 S2. Abdomen: Non-tender. Soft. Obese. Bowel sounds present. Extremities: Right thigh dressing in place. Left 3rd finger swelling. Neuro: Alert/oriented x3. Speech fluent. Follow commands. Labs and Radiology: Reviewed available labs and radiology values available at time of EMR review. Laboratory Results 05/10/19 05/10/19 05/10/19 12:34 16:47 21:02 WBC RBC Hgb Hct MCV MCH MCHC RDW Std Deviation Plt Count MPV Immature Gran % (Auto) Neut % (Auto) Lymph % (Auto) [place] % (Auto) Eos % (Auto) Baso % (Auto) Immature Gran # (Auto) Neut # (Auto) Lymph # (Auto) Dent # (Auto) Eos # (Auto) Baso # (Auto) Segmented Neutrophils Lymphocytes Monocytes Atypical Lymphocytes Sodium Potassium Chloride Carbon Dioxide Anion Gap BUN Creatinine Estimated GFR/1.73 m2 BUN/Creatinine Ratio Glucose POC Glucose 122 H 91 96 Calculated Osmolality Calcium Phosphorus Magnesium Total Bilirubin AST ALT Alkaline Phosphatase Total Protein Albumin Globulin Albumin/Globulin Ratio 05/11/19 05/11/19 05/11/19 02:01 04:48 06:36 WBC RBC Hgb Hct MCV MCH MCHC RDW Std Deviation Plt Count MPV Immature Gran % (Auto) Neut % (Auto) Lymph % (Auto) [place] % (Auto) Eos % (Auto) Baso % (Auto) Immature Gran # (Auto) Neut # (Auto) Lymph # (Auto) Dent # (Auto) Eos # (Auto) Baso # (Auto) Segmented Neutrophils Lymphocytes Monocytes Atypical Lymphocytes Sodium 134 L Potassium 4.4 Chloride 99 Carbon Dioxide 24 L Anion Gap 11 BUN 39 H Creatinine 1.5 H Estimated GFR/1.73 m2 47 BUN/Creatinine Ratio 26 Glucose 114 H POC Glucose 189 H D 111 H Calculated Osmolality 279 Calcium 8.7 L Phosphorus 2.5 L Magnesium 2.0 Total Bilirubin 0.38 AST 18 ALT 15 Alkaline Phosphatase 155 H Total Protein 6.7 Albumin 2.4 L Globulin 4.3 Albumin/Globulin Ratio 0.6 05/11/19 05/11/19 05/11/19 06:36 08:55 12:46 WBC 23.66 H RBC 3.27 L Hgb 9.4 L Hct 30.8 L MCV 94.2 MCH 28.7 MCHC 30.5 L RDW Std Deviation 12.9 Plt Count 219 MPV 11.1 H Immature Gran % (Auto) 0.8 H Neut % (Auto) 90.2 H Lymph % (Auto) 4.7 L Dent % (Auto) 4.3 Eos % (Auto) 0.0 Baso % (Auto) 0.0 Immature Gran # (Auto) 0.20 H Neut # (Auto) 21.32 H Lymph # (Auto) 1.12 L Dent # (Auto) 1.01 H Eos # (Auto) 0.00 Baso # (Auto) 0.01 Segmented Neutrophils 92 H Lymphocytes 4 L Monocytes 2 Atypical Lymphocytes 2.0 Sodium Potassium Chloride Carbon Dioxide Anion Gap BUN Creatinine Estimated GFR/1.73 m2 BUN/Creatinine Ratio Glucose POC Glucose 125 H 164 H Calculated Osmolality Calcium Phosphorus Magnesium Total Bilirubin AST ALT Alkaline Phosphatase Total Protein Albumin Globulin Albumin/Globulin Ratio Dr. Mchugh evaluated and additional note below. Evaluation time in minutes: 10 minutes. Assessment: Acute hypoxemic respiratory failure. Improving. Pneumonia with LLL moderate subsegmental atelectasis and RLL mild subsegmental atelectasis per CT on 05/03/2019. LUE 3 digit paronychia with osteomyelitis. Morbid obesity. Uncontrolled diabetes. Right medial thigh cellulitis with a large abscess s/p I&D on 05/07/19, culture growing gram-positive cocci. Acute on chronic kidney disease. Plan: Continue current treatment and supportive care per admitting and other teams on the case. Antibiotics: cephalexin. Bronchodilators Appropriate DVT and GI prophylaxis. Input was appreciated from Admitting MD and other teams on the case.
--- NOTE | 2019-05-11 13:43 | PROGRESS NOTE ---
DATE: 05/11/2019 SUBJECTIVE: The patient seems to be stable. She had an I and D of the right medial thigh a few days ago. She has a drain that is covered with a dressing. Her left middle finger is also swollen, and based on the triple-phase bone scan, there is a confirmation of the osteomyelitis of the middle finger due to an intense hyperactive uptake in the distal phalanx base and probably also the middle phalanx head. OBJECTIVE: Vital Signs: Temperature 97.9 degrees, pulse 99 respiratory rate 13, blood pressure 127//84, oxygen saturation 100% on 3 liters of nasal cannula. HEENT: Head normocephalic, no trauma. PERRLA. Neck: Supple. No JVD. No masses. Central trachea. Chest: Some crepitus at the bases, probably a little bit of rhonchi also. Cardiovascular: RRR. Abdomen: Soft, nontender, nondistended. No hepatosplenomegaly. She has an old sternotomy scar on the anterior chest wall. Extremities: Her right medial aspect of the right thigh is covered with a dressing and there is a drain also. It looks less swollen today. I do not see any drainage at this moment. Her left middle finger is swollen. No drainage. Neurological: The patient is awake, alert. She is oriented x3 and no focal deficits. LABORATORY: WBC 23.6, hemoglobin 9.4, hematocrit 30.8, platelets 219,000. Sodium 134, potassium 4.4, chloride 99, bicarbonate 24, BUN 39, creatinine 1.5, glucose 114, calcium 8.7, phosphorus 2.5, albumin 2.4. ASSESSMENT AND PLAN: 1. Acute hypoxemic respiratory failure on admission secondary to multifocal pneumonia. This patient is breathing better. Continue with antibiotics. She is on nasal cannula at this moment and she is tolerating that. Infectious Disease Department and Pulmonary Department on board. 2. Left medial thigh cellulitis with abscess status post I and D. Continue with antibiotics. Culture showed Streptococcus anginosus. Infectious Disease Department and Surgery Department on board. 3. Left middle finger paronychia with osteomyelitis of the distal phalanx and possible head of the middle phalanx as well based on the triple-phase bone scan bone scan report. I will wait for recommendations per Infectious Disease Department. 4. Uncontrolled type 2 diabetes with a hemoglobin A1c of 12.8. Continue with same management. She seems to be more stable now. 5. History of mitral valvulopathy, status post bioprosthetic mitral valve replacement, aware. 6. Acute on chronic kidney disease, stable. Continue to monitor. 7. The patient seems to be stable. Continue with antibiotics. I will wait for final recommendations of Surgery Department, as well as Infectious Disease Department. cc: Brian Sanchez MD
[2019-05-11] MEDS: ROCEPHIN 2 GM in NS 50 ML IV SCH (17:02)
[2019-05-11] MEDS ORDERED: NS 500 ML ONE (17:17)
[2019-05-11 17:19] LABS: INR 1.06
--- NOTE | 2019-05-11 19:25 | INFECTIOUS DISEASE PROGRESS NO ---
DATE: 05/11/2019 PRESENT ILLNESS: The patient is status post drainage of a large right thigh streptococcal abscess. The patient also has osteomyelitis at the tip of her left middle finger as seen by x-ray and bone scan. MEDICATIONS: The patient is on Keflex and I have just switched the patient to Rocephin 2 g IV every 12 hours. PHYSICAL EXAMINATION: Vital Signs: Temperature is 97.9 degrees, pulse 99, respirations 13, blood pressure is 127/84. General: This is an obese, young female. She is in no acute distress. Head/eyes/ears/nose/throat: She can hear my spoken words and see near objects. She does not have any white patches in her mouth. Neck: No pain with movement. Lungs: Clear to auscultation. Cardiovascular: Regular heart rate. Abdomen: Soft and nontender. Extremities: The patient's left middle finger is swollen. It is not draining and it is not erythematous and it does not seem to be tender. The patient's right thigh wound has beefy red tissue and a drain in it. The whole thigh is much less indurated and swollen and it has lost the peau d'orange skin. Neurologic: Patient is alert. She can move her extremities. There is no tremor. LAB AND X-RAY: Chest x-ray shows pulmonary venous congestion. CBC shows a white count of 23,660, hemoglobin 9.4, and platelet count 219,000. Creatinine is 1.5. GFR is 47. ASSESSMENT AND PLAN: The patient is going to go home on Rocephin 2 g IV every 12 hours for 6 weeks to treat the patient's left middle finger osteomyelitis and the patient's right thigh infection. I put in for a peripherally inserted central catheter to be placed and for [facility] to be consulted to supply the antibiotic. The patient will be seen in my office at 3 weeks and then again at 6 weeks. COMORBIDITIES: She is obese and she is a diabetic. She has had a mitral valve replacement and she also has gastroesophageal reflux disease. cc: Dayday Bradshaw MD
--- NOTE | 2019-05-11 20:56 | NEUROLOGY PROGRESS NOTE ---
DATE: 05/11/2019 SUBJECTIVE: No major overnight events. The patient reports she feels her strength is a little bit improved. She continues to have some significant pain at the surgical site of her right upper leg that has been better with pain medication. She has been previously followed by Dr. Elliott for likely chronic diabetic neuropathy with question of superimposed autoimmune polyneuropathy. She has had right thigh abscess, pneumonia, and osteomyelitis of the left third digit. Her A1c was above 12. To me she denies back pain, new sensory loss, bowel or bladder changes. She denies a sense that her weakness has progressed or moved to other parts of the body. No pain other than at the surgical site. OBJECTIVE: Vital signs: Reviewed in the chart. Ms. Negrete is sitting up in bed. She is awake, alert, and oriented. She is attentive and appropriate. No dysarthria. Gaze is conjugate. She has full ocular movements. Face is symmetric with equal activation. No ptosis. The right deltoid is 4+/5. The left deltoid for me today is 5/5. She had some difficulty with the information coordinator using the left hand, but I believe that was due to the third digit swelling. Hip flexors for me difficult to plan coordinator. Distally, she has some mild weakness of the toe flexors, but good plantar and dorsiflexion. Hip flexors and abductors have good strength. Her reflexes are absent. Plantar response is silent. No clonus. LABORATORY DATA: Reviewed in the chart. Elevated white count. BUN 39, creatinine 1.5. Blood sugars 114 to 206. ASSESSMENT AND PLAN: Remains uncontrolled diabetes with likely diabetic polyneuropathy. Cannot exclude a superimposed autoimmune polyneuropathy, but she reports to me some improvement in strength, which is reassuring. From a neurologic stand point, she has had a stable course and reports improvement in her strength. So for that reason, I think we can continue to follow her, with further workup pending her clinical course. cc: MD MCKENZIE Lawrence
[2019-05-11] MEDS: LIPITOR PO SCH (21:43)
[2019-05-12] MEDS: HUMULIN R SUBQ SCH ×5 (00:20→22:08)
[2019-05-12] MEDS: HEPARIN SUBQ SCH ×3 (05:55→22:07)
[2019-05-12] MEDS: ROCEPHIN 2 GM in NS 50 ML IV SCH ×2 (05:55→17:45)
[2019-05-12] MEDS: PROTONIX PO SCH (06:36)
[2019-05-12 07:20] LABS: BASO# 0.02 X1000 (0.0-0.2); BASO% 0.1 % (0.0-0.8); HEMATOCRIT 29.8 % (37.0-47.0); HEMOGLOBIN 9.1 g/dL (12.0-16.0); IMM GRAN# 0.25 X1000 (0.0-0.04); IMM GRAN% 1.1 % (0.0-0.5); LYMPH# 1.25 X1000 (1.2-3.4); LYMPH% 5.3 % (20.5-51.1); MCHC 30.5 g/dL (33-37); MCV 94.9 FL (81-99); MONO# 1.12 X1000 (0.11-0.59); MONO% 4.7 % (1.7-9.3); MPV 10.7 FL (7.4-10.4); NEUT# 20.97 X1000 (1.4-6.5); NEUT% 88.8 % (42.2-75.2); PLT 202 X1000 (130-400); RBC 3.14 XMIL (4.2-5.4); RDW 12.8 % (11.5-14.5); WBC 23.61 X1000 (4.8-10.8)
[2019-05-12 07:30] LABS: ALB/GLOB RATIO 0.6; ALBUMIN 2.5 g/dL (3.5-5.0); CALCIUM 8.9 mg/dL (8.8-10.2); CREATININE 1.2 mg/dL (0.5-0.9); POTASSIUM 4.3 mmol/L (3.5-5.1); TOTAL BILIRUBIN 0.3 mg/dL (0.20-1.00); TOTAL PROTEIN 6.7 g/dL (6.3-8.3)
[2019-05-12 07:56] LABS: LYMPHS 3 % (21-51); MONO 1 % (1-9); SEGS 96 % (42-75)
[2019-05-12] MEDS ORDERED: NS 250 ML ONE (08:35)
[2019-05-12] MEDS: HUMALOG SUBQ SCH ×3 (10:01→17:44)
[2019-05-12] MEDS: KLOR-CON PO SCH (10:02)
[2019-05-12] MEDS: LANTUS INSULIN SUBQ SCH (10:02)
[2019-05-12] MEDS: CORDARONE PO SCH (10:02)
[2019-05-12] MEDS: MYCOSTATIN SUSP PO SCH ×4 (10:02→22:06)
--- NOTE | 2019-05-12 11:53 | PROVIDER PROGRESS NOTE ---
Progress Note Dr. Mchugh Progress Note/Pulmonary and or critical care We appreciated progress of care, Complications, change in diagnosis, and instructions to patient under direct supervision of Dr. Mchugh. Subjective: We note the level of consciousness, bed (chair) position, family presence (if any), level of lethargy, feeling of symptoms, and changes from baseline condition/symptom. The patient is lying in bed with no acute distress noted. She is on NC at 2L with SaO2 on high 90s. She still has frequent cough, mainly dry, but with production at times. She reports some chest soreness with cough at this time and Robitussin-DM doesnt help that much. Objective: Vital Signs: We reviewed EMR current values for Pulse rate, Blood pressure, Pulse rate, respiratory rate and Pulse oximetry. Also noted other values and trends if present (e.g. I/O, CVP). Vital Signs 05/11/19 15:13 05/11/19 20:00 05/11/19 20:20 Temperature 97.4 F L 98.0 F Pulse Rate 101 H 100 H Respiratory Rate 18 20 Blood Pressure 126/81 137/87 O2 Sat by Pulse Oximetry 100 100 99 05/12/19 00:00 05/12/19 04:00 05/12/19 07:01 Temperature 97.7 F 97.7 F 98.2 F Pulse Rate 104 H 102 H 103 H Respiratory Rate 22 20 18 Blood Pressure 137/84 135/82 135/79 O2 Sat by Pulse Oximetry 100 100 93 L 05/12/19 11:51 Temperature 98.4 F Pulse Rate 104 H Respiratory Rate 18 Blood Pressure 110/61 O2 Sat by Pulse Oximetry 100 Intake & Output 05/11/19 05/12/19 05/12/19 19:59 07:59 19:59 Intake Total 620 / 860 240 / 860 Output Total 500 / 500 Balance 120 / 360 240 / 360 Intake: Intake, Oral Amount 620 / 860 240 / 860 Output: Output, Urine Void Amount 500 / 500 Other: Percent of Meal Consumed 50% Number of Incontinent Voids 2 Number of Bowel Movements 1 1 Physical Examination: General: Morbidly obese. Lying in bed with no acute distress noted. HEENT: Atraumatic. Normocephalic. Trachea Midline. Mucosa pink and dry. Chest: Even and unlabored. Symmetrical excursion. Mild inspiratory crackles on LLL posteriorly. CVS: S1 S2. Abdomen: Non-tender. Soft. Obese. Bowel sounds present. Extremities: No pedal edema. Left 3rd finger swelling. Neuro: Alert/oriented x3. Speech fluent. Follow commands. Labs and Radiology: Reviewed available labs and radiology values available at time of EMR review. Laboratory Results 05/11/19 05/11/19 05/11/19 12:46 16:40 16:47 WBC RBC Hgb Hct MCV MCH MCHC RDW Std Deviation Plt Count MPV Immature Gran % (Auto) Neut % (Auto) Lymph % (Auto) [place] % (Auto) Eos % (Auto) Baso % (Auto) Immature Gran # (Auto) Neut # (Auto) Lymph # (Auto) [place] # (Auto) Eos # (Auto) Baso # (Auto) Segmented Neutrophils Lymphocytes Monocytes PT 14.0 INR 1.06 Sodium Potassium Chloride Carbon Dioxide Anion Gap BUN Creatinine Estimated GFR/1.73 m2 BUN/Creatinine Ratio Glucose POC Glucose 164 H 206 H Calculated Osmolality Calcium Total Bilirubin AST ALT Alkaline Phosphatase Wgy-F-Lpvbooswzho Pept Total Protein Albumin Globulin Albumin/Globulin Ratio 05/11/19 05/12/19 05/12/19 22:41 01:39 05:20 WBC RBC Hgb Hct MCV MCH MCHC RDW Std Deviation Plt Count MPV Immature Gran % (Auto) Neut % (Auto) Lymph % (Auto) [place] % (Auto) Eos % (Auto) Baso % (Auto) Immature Gran # (Auto) Neut # (Auto) Lymph # (Auto) [place] # (Auto) Eos # (Auto) Baso # (Auto) Segmented Neutrophils Lymphocytes Monocytes PT INR Sodium Potassium Chloride Carbon Dioxide Anion Gap BUN Creatinine Estimated GFR/1.73 m2 BUN/Creatinine Ratio Glucose POC Glucose 209 H 145 H 121 H Calculated Osmolality Calcium Total Bilirubin AST ALT Alkaline Phosphatase Lig-O-Shyxkiscvpc Pept Total Protein Albumin Globulin Albumin/Globulin Ratio 05/12/19 05/12/19 05/12/19 06:30 06:30 06:30 WBC 23.61 H RBC 3.14 L Hgb 9.1 L Hct 29.8 L MCV 94.9 MCH 29.0 MCHC 30.5 L RDW Std Deviation 12.8 Plt Count 202 MPV 10.7 H Immature Gran % (Auto) 1.1 H Neut % (Auto) 88.8 H Lymph % (Auto) 5.3 L [place] % (Auto) 4.7 Eos % (Auto) 0.0 Baso % (Auto) 0.1 Immature Gran # (Auto) 0.25 H Neut # (Auto) 20.97 H Lymph # (Auto) 1.25 [place] # (Auto) 1.12 H Eos # (Auto) 0.00 Baso # (Auto) 0.02 Segmented Neutrophils 96 H Lymphocytes 3 L Monocytes 1 PT INR Sodium 136 Potassium 4.3 Chloride 101 Carbon Dioxide 24 L Anion Gap 11 BUN 33 H Creatinine 1.2 H Estimated GFR/1.73 m2 60 BUN/Creatinine Ratio 28 Glucose 130 H POC Glucose Calculated Osmolality 281 Calcium 8.9 Total Bilirubin 0.30 AST 18 ALT 15 Alkaline Phosphatase 140 H Pzr-O-Czrohehvnwf Pept 1033 H Total Protein 6.7 Albumin 2.5 L Globulin 4.2 Albumin/Globulin Ratio 0.6 05/12/19 09:33 WBC RBC Hgb Hct MCV MCH MCHC RDW Std Deviation Plt Count MPV Immature Gran % (Auto) Neut % (Auto) Lymph % (Auto) [place] % (Auto) Eos % (Auto) Baso % (Auto) Immature Gran # (Auto) Neut # (Auto) Lymph # (Auto) [place] # (Auto) Eos # (Auto) Baso # (Auto) Segmented Neutrophils Lymphocytes Monocytes PT INR Sodium Potassium Chloride Carbon Dioxide Anion Gap BUN Creatinine Estimated GFR/1.73 m2 BUN/Creatinine Ratio Glucose POC Glucose 213 H D Calculated Osmolality Calcium Total Bilirubin AST ALT Alkaline Phosphatase Oqo-Q-Ttnzqmtkaxj Pept Total Protein Albumin Globulin Albumin/Globulin Ratio Dr. Mchugh evaluated and additional note below. Evaluation time in minutes: 10 m inutes. Assessment: Acute hypoxemic respiratory failure. Improving. Pneumonia with LLL moderate subsegmental atelectasis and RLL mild subsegmental atelectasis per CT on 05/03/2019. LUE 3 digit paronychia with osteomyelitis. Morbid obesity. Uncontrolled diabetes. Right medial thigh cellulitis with a large abscess s/p I&D on 05/07/19, culture growing gram-positive cocci. Acute on chronic kidney disease. Plan: Continue current treatment and supportive care per admitting and other teams on the case. Antibiotics: cephalexin. Bronchodilators. Encourage incentive spirometer routinely. Appropriate DVT and GI prophylaxis. Input was appreciated from Admitting MD and other teams on the case.
[2019-05-12] MEDS ORDERED: NS NEB INH SCH (12:00)
[2019-05-12] MEDS: MUCOMYST 20% INH SCH (12:16)
[2019-05-12] MEDS: XOPENEX NEB INH PRN (12:26)
[2019-05-12] MEDS: NS NEB INH SCH (12:26)
[2019-05-12] MEDS: NORCO-5 PO PRN ×3 (12:54→22:07)
--- NOTE | 2019-05-12 13:06 | PROGRESS NOTE ---
DATE: 05/12/2019 SUBJECTIVE: The patient seems to be stable. A PICC line has been placed and the plan is to keep this patient with ceftriaxone 2 g twice a day for 6 weeks. She had an incision and drainage in the right medial thigh a few days ago, and also she has a left middle finger that is swollen, and the triple phase bone scan showed osteomyelitis. Infectious Disease Department on board. Due to her weakness likely this patient will need to go to a rehab center. wind up worker on board and working on that. OBJECTIVE: Vital Signs: Temperature 98.4 degrees, pulse 97, respiratory rate 20, blood pressure 110/61, oxygen saturation 98 on 2 L of nasal cannula. HEENT: Head normocephalic, no trauma. PERRLA. Neck: Supple. No JVD. No masses. Central trachea. Chest: Some crepitus at the bases, probably a little bit of rhonchi also. Cardiovascular: RRR. Abdomen: Soft. She has an old sternotomy scar on the anterior chest wall. Extremities: Her right medial aspect of the right thigh is covered with a dressing, and there is a drain also. It looks less swollen today. Her left middle finger is swollen and painful to palpation, no drainage. Neurological examination: Patient is awake, alert. She is oriented x3. No focal deficit, but really sensitive lower extremities due to neuropathy. LABORATORY: WBC 23.6, hemoglobin 9.1, hematocrit 29.8. Sodium 136, potassium 4.3, chloride 101, bicarbonate 24. BUN 33, creatinine 1.2, glucose 130, calcium 8.9. AST 18, ALT 15, alkaline phosphatase 140, albumin 2.5. ASSESSMENT AND PLAN: 1. Acute hypoxemic respiratory failure on admission secondary to multifocal pneumonia. She seems to be breathing better. Continue with antibiotics. Infectious Disease Department on board. Oxygen supplementation. 2. Left medial thigh cellulitis with abscess status post incision and drainage. Continue with antibiotics. Culture showed Streptococcus anginosus. Infectious Disease Department on board. She had a PICC line placed today, and she will be hopefully go to a rehabilitation center with antibiotics. 3. Left middle finger paronychia with osteomyelitis of the distal phalanx and possible head of the middle phalanx as well based on the triple phase bone scan report. The plan is to send this patient home and/or rehabilitation with a PICC line and treatment for 6 weeks with ceftriaxone 2 grams every 12 hours. 4. Uncontrolled type 2 diabetes with a hemoglobin A1c of 12.8, blood sugar seems to be stable now. 5. History of mitral valvulopathy status post bioprosthetic mitral valve replacement, aware. 6. Acute on chronic kidney disease, stable. We will monitor. This is getting better. 7. The patient seems to be stable. Continue antibiotics. The plan is to discharge this patient to a rehabilitation center. PICC line has been placed. cc: Brian Sanchez MD
[2019-05-12] MEDS: TESSALON PO PRN ×2 (13:07→22:08)
[2019-05-12] MEDS: XOPENEX NEB INH SCH ×2 (16:12→23:48)
--- NOTE | 2019-05-12 20:00 | INFECTIOUS DISEASE PROGRESS NO ---
DATE: 05/12/2019 PRESENT ILLNESS: Ms. Negrete is status post incision and drainage of a right medial thigh abscess which grew Streptococcus anginosus. She also has a left middle finger osteomyelitis as seen on the bone scan. There is a persistent leukocytosis. MEDICATIONS: Today is day 1 of Rocephin 2 g IV every 12 hours. PHYSICAL EXAMINATION: Vital Signs: Temperature is 98.4 degrees, pulse rate 97, respiratory rate 20, blood pressure 110/61, O2 saturation is 98% on 2 L nasal cannula. General: This is a morbidly obese, chronically ill-appearing female. She is lying in bed, currently in no acute distress. HEENT: Atraumatic, normocephalic. Oral mucous membranes are pink and moist. Conjunctivae are pale. Neck: Supple. Trachea is midline. Cardiovascular: Heart rate is regular. S1-S2 noted. Respiratory: Lung sounds are bilaterally clear to auscultation. No work of breathing is noted. Abdomen: Soft, obese, and nontender. Bowel sounds are active. Integumentary: Skin is warm and dry. There is a PICC line in place to the left upper arm and that site is without edema, erythema, or drainage. She has some dry peeling skin to her left middle finger with areas of dark discoloration and swelling. The right thigh wound has a dressing in place which was not removed at this time. Neurologic: She is awake, alert, oriented, and able to move around in the bed independently. LABORATORY AND X-RAY: Today, her white count is 23.61, hemoglobin 9.1, platelet count 202,000. Creatinine is 1.2, GFR 60. Total bilirubin is 0.3, AST 18, ALT 15, alkaline phosphatase 140. Her right thigh previously grew Streptococcus anginosus. No imaging reports today. ASSESSMENT AND PLAN: Ms. Negrete is being treated for a streptococcal infection to her right thigh and is status post drainage of an abscess. There is also an osteomyelitis to the left middle finger. She will need 6 weeks of treatment with Rocephin for the osteomyelitis, which will also treat her right thigh wound. A consult for [facility] has already been put in, however, there is a possibility of transfer to rehab. At this point, the patient states she is unable to ambulate. She will need to follow up with us in our office in 3 weeks and then again in 6 weeks. These plans have been discussed with and recommended by Dr. Bradshaw. COMORBIDITIES: For Ms. Negrete include morbid obesity, diabetes mellitus, gastroesophageal reflux disease, coronary artery disease with congestive heart failure. Dictated by MAICOL Hardin for Dayday Bradshaw MD cc: Dayday Bradshaw MD [facility]
--- NOTE | 2019-05-12 21:19 | GENERAL SURGERY PROGRESS NOTE ---
DATE: 05/12/2019 SUBJECTIVE: Her thigh feels better. The left finger is about the same. Persistent purulent drainage from her wound. OBJECTIVE: Vital signs: No fevers. Pulse is improving. It is down in the 90s. Oxygen 98% on 2 L. General: She is alert. Her left 3rd finger shows some induration. There is no fluctuance or erythema. It seems to be improving. There is some desquamation, but no necrosis. The right thigh wound is clean, less induration, less cellulitis. There is cloudy fluid draining, but no khurram purulence. [place] in place. LABORATORIES: Her white count has remained stable at 23. Hematocrit is 29. Creatinine is 1.2. Glucoses are marginally better. Wound cultures have grown strep anginosus. ASSESSMENT AND PLAN: This is a 39-year-old female with infection of her left finger. Apparently, she has some suggestion of osteomyelitis on her bone scan, middle finger, and she has a right thigh abscess. I would recommend long-term antibiotics for both. We will keep her Jose drain in place for now. I have asked the nurse to just change the superficial dressing as I fear loss of gauze or dressings within the bed of the wound as there seemed to be almost happening today. We will follow along. Her leg is well perfused. She has multiple factors that are working against us including poorly controlled diabetes, but we will follow her along. No plans for further surgical intervention. cc: Jose Daniel Alvarez MD
[2019-05-12] MEDS: LIPITOR PO SCH (22:09)
[2019-05-13] MEDS: ROCEPHIN 2 GM in NS 50 ML IV SCH ×2 (05:57→17:59)
[2019-05-13] MEDS: HEPARIN SUBQ SCH ×3 (05:58→22:12)
[2019-05-13] MEDS: PROTONIX PO SCH (06:01)
[2019-05-13] MEDS: NORCO-5 PO PRN ×4 (06:02→22:12)
[2019-05-13 07:24] LABS: BASO# 0.07 X1000 (0.0-0.2); BASO% 0.3 % (0.0-0.8); EOS# 0.02 X1000 (0.0-0.7); EOS% 0.1 % (0.0-10.0); HEMATOCRIT 28.3 % (37.0-47.0); HEMOGLOBIN 8.5 g/dL (12.0-16.0); IMM GRAN# 0.22 X1000 (0.0-0.04); LYMPH# 1.38 X1000 (1.2-3.4); LYMPH% 6.5 % (20.5-51.1); MCH 29.5 PG (27-31); MCV 98.3 FL (81-99); MONO# 1.17 X1000 (0.11-0.59); MONO% 5.5 % (1.7-9.3); MPV 10.8 FL (7.4-10.4); NEUT# 18.27 X1000 (1.4-6.5); NEUT% 86.6 % (42.2-75.2); PLT 149 X1000 (130-400); RBC 2.88 XMIL (4.2-5.4); RDW 13.1 % (11.5-14.5); WBC 21.13 X1000 (4.8-10.8)
[2019-05-13] MEDS: XOPENEX NEB INH SCH ×3 (08:29→23:00)
[2019-05-13] MEDS: MYCOSTATIN SUSP PO SCH ×4 (08:50→22:12)
[2019-05-13] MEDS: CORDARONE PO SCH (08:50)
[2019-05-13] MEDS: KLOR-CON PO SCH (08:50)
[2019-05-13] MEDS: HUMALOG SUBQ SCH ×3 (08:50→17:59)
[2019-05-13] MEDS: LANTUS INSULIN SUBQ SCH (08:51)
[2019-05-13 08:52] LABS: CALCIUM 8.4 mg/dL (8.8-10.2); CREATININE 1.2 mg/dL (0.5-0.9); POTASSIUM 4.8 mmol/L (3.5-5.1)
[2019-05-13] MEDS: HUMULIN R SUBQ SCH ×4 (10:41→22:18)
--- NOTE | 2019-05-13 14:36 | PROGRESS NOTE ---
DATE: 05/13/2019 SUBJECTIVE: The patient seems to be stable. PICC line has been placed. She will continue with ceftriaxone 2 g twice a day for 6 weeks. Wound seems to be stable. Her left middle finger is swollen, but I think it is a little bit better. OBJECTIVE: Vital Signs: Temperature 97.8 degrees, pulse 95, respiratory rate 22, blood pressure 120/75, oxygen saturation 97% on 2 L of nasal cannula. HEENT: Head normocephalic. No trauma. PERRLA. Neck: Supple. No JVD. No masses. Central trachea. Chest: Some crepitus at the bases. Probably a little bit of rhonchi scattered also. Cardiovascular: RRR. She has an old sternotomy scar on the anterior chest wall. Abdomen: Soft. Extremities: The right medial aspect of the right thigh is covered with a dressing. It looks clean. Her left middle finger is swollen and also has a dressing. I do not think it is draining. Neurological: The patient is awake, alert. She is oriented x3. She has sensitive lower extremities which are painful to palpation and generalized weakness. LABORATORY: WBC 21.3, hemoglobin 8.5, hematocrit 28.3, platelet 149,000. Sodium 136, potassium 4.8, chloride 103, bicarbonate 20, BUN 27, creatinine 1.2, glucose 139, calcium 8.4. ProBNP 933. ASSESSMENT AND PLAN: 1. Acute hypoxemic respiratory failure on admission secondary to multifocal pneumonia. She seems to be getting better. Pulmonary Department on board, as well as Infectious Disease Department. 2. Left medial thigh cellulitis with abscess, status post incision and drainage. She had a PICC line placed. Continue with antibiotics and wound care. 3. Left middle finger paronychia with osteomyelitis of the distal phalanx and possible head of the middle phalanx. This is corroborated by the triple phase bone scan report. The plan is to send this patient to a rehab center and/or home with a PICC line and treatment for 6 weeks with ceftriaxone 2 g every 12 hours. 4. Uncontrolled type 2 diabetes with a hemoglobin A1c of 12.8. Blood sugar seems to be stable now. 5. History of mitral valvulopathy, status post bioprosthetic mitral valve replacement. Aware. 6. Acute on chronic kidney disease, stable. This is getting better. cc: Brian Sanchez MD
--- NOTE | 2019-05-13 16:29 | PROVIDER PROGRESS NOTE ---
Progress Note Dr. Mchugh Progress Note/Pulmonary and or critical care We appreciated progress of care, Complications, change in diagnosis, and instructions to patient under direct supervision of Dr. Mchugh. Subjective: We note the level of consciousness, bed (chair) position, family presence (if any), level of lethargy, feeling of symptoms, and changes from baseline condition/symptom. The patient is lying in bed with no acute distress noted. She is on NC at 2L. She states she is feeling ok. She still has frequent cough, mainly dry, but with production at times. She still has BLE weakness. Objective: Vital Signs: We reviewed EMR current values for Pulse rate, Blood pressure, Pulse rate, respiratory rate and Pulse oximetry. Also noted other values and trends if present (e.g. I/O, CVP). Vital Signs 05/12/19 20:00 05/12/19 23:48 05/13/19 00:00 Temperature 98.2 F 97.8 F Pulse Rate 98 H 93 H Respiratory Rate 20 18 Blood Pressure 108/69 127/79 O2 Sat by Pulse Oximetry 100 99 100 05/13/19 04:00 05/13/19 07:24 05/13/19 08:30 Temperature 97.5 F L 97.6 F Pulse Rate 102 H 102 H 102 H Respiratory Rate 20 22 22 Blood Pressure 139/78 119/68 O2 Sat by Pulse Oximetry 100 99 97 05/13/19 11:10 05/13/19 15:45 05/13/19 15:53 Temperature 97.8 F 98 F Pulse Rate 95 H 102 H 102 H Respiratory Rate 22 21 21 Blood Pressure 120/75 124/81 O2 Sat by Pulse Oximetry 97 95 Intake & Output 05/12/19 05/13/19 05/13/19 19:59 07:59 19:59 Intake Total 420 / 660 240 / 660 150 / 150 Output Total 300 / 300 200 / 200 Balance 120 / 360 240 / 360 -50 / -50 Intake: Intake, Oral Amount 420 / 660 240 / 660 150 / 150 Output: Output, Urine Void Amount 300 / 300 200 / 200 Other: Percent of Meal Consumed Bites Only Number of Continent Voids Not 1 Measured Number of Bowel Movements 1 1 1 Bowel Movement Color and Soft Character Liquid Physical Examination: General: Morbidly obese. Lying in bed with no acute distress noted. HEENT: Atraumatic. Normocephalic. Trachea Midline. Mucosa pink and dry. Chest: Even and unlabored. Symmetrical excursion. Mild inspiratory crackles on LLL posteriorly. CVS: S1 S2. Abdomen: Non-tender. Soft. Obese. Bowel sounds present. Extremities: No pedal edema. Left 3rd finger swelling. Neuro: Alert/oriented x3. Speech fluent. Follow commands. Labs and Radiology: Reviewed available labs and radiology values available at time of EMR review. Laboratory Results 05/12/19 05/13/19 05/13/19 20:50 00:33 05:20 WBC RBC Hgb Hct MCV MCH MCHC RDW Std Deviation Plt Count MPV Immature Gran % (Auto) Neut % (Auto) Lymph % (Auto) [place] % (Auto) Eos % (Auto) Baso % (Auto) Immature Gran # (Auto) Neut # (Auto) Lymph # (Auto) [place] # (Auto) Eos # (Auto) Baso # (Auto) Sodium Potassium Chloride Carbon Dioxide Anion Gap BUN Creatinine Estimated GFR/1.73 m2 BUN/Creatinine Ratio Glucose POC Glucose 201 H 147 H 158 H Calculated Osmolality Calcium Btr-C-Fwakeugcwta Pept 05/13/19 05/13/19 05/13/19 06:40 06:40 06:40 WBC 21.13 H RBC 2.88 L Hgb 8.5 L Hct 28.3 L MCV 98.3 MCH 29.5 MCHC 30.0 L RDW Std Deviation 13.1 Plt Count 149 MPV 10.8 H Immature Gran % (Auto) 1.0 H Neut % (Auto) 86.6 H Lymph % (Auto) 6.5 L [place] % (Auto) 5.5 Eos % (Auto) 0.1 Baso % (Auto) 0.3 Immature Gran # (Auto) 0.22 H Neut # (Auto) 18.27 H Lymph # (Auto) 1.38 [place] # (Auto) 1.17 H Eos # (Auto) 0.02 Baso # (Auto) 0.07 Sodium 136 Potassium 4.8 Chloride 103 Carbon Dioxide 20 L Anion Gap 13 BUN 27 H Creatinine 1.2 H Estimated GFR/1.73 m2 60 BUN/Creatinine Ratio 23 Glucose 139 H POC Glucose Calculated Osmolality 279 Calcium 8.4 L Gse-W-Emdtrzqmtab Pept 933 H 01/23/20 01/23/20 01/23/20 09:26 12:16 17:17 WBC RBC Hgb Hct MCV MCH MCHC RDW Std Deviation Plt Count MPV Immature Gran % (Auto) Neut % (Auto) Lymph % (Auto) [place] % (Auto) Eos % (Auto) Baso % (Auto) Immature Gran # (Auto) Neut # (Auto) Lymph # (Auto) [place] # (Auto) Eos # (Auto) Baso # (Auto) Sodium Potassium Chloride Carbon Dioxide Anion Gap BUN Creatinine Estimated GFR/1.73 m2 BUN/Creatinine Ratio Glucose POC Glucose 162 H 130 H 123 H Calculated Osmolality Calcium Ubt-U-Qktglytlyeo Pept Dr. Mchugh evaluated and additional note below. Evaluation time in minutes: 10 minutes. Assessment: Acute hypoxemic respiratory failure. Improving. Pneumonia with LLL moderate subsegmental atelectasis and RLL mild subsegmental atelectasis per CT on 05/03/2019. LUE 3 digit paronychia with osteomyelitis. Morbid obesity. Uncontrolled diabetes. Right medial thigh cellulitis with a large abscess s/p I&D on 05/07/19, culture growing gram-positive cocci. Acute on chronic kidney disease. Plan: Continue current treatment and supportive care per admitting and other teams on the case. Antibiotics: cephalexin. Bronchodilators. Encourage incentive spirometer routinely. Appropriate DVT and GI prophylaxis. Input was appreciated from Admitting MD and other teams on the case. Dr. Mchugh did the evaluation, examination and management. LEADITE WORKER did the scribing/dictation for Dr. Mchugh according to his directions.
[2019-05-13] MEDS: TESSALON PO PRN (18:57)
--- NOTE | 2019-05-13 20:30 | NEUROLOGY PROGRESS NOTE ---
DATE: 05/13/2019 SUBJECTIVE: Ms. Negrete reports continued slow improvement in her sense of strength with management of her infection and blood sugar. She does not have any new complaints today. IMPRESSION: Likely diabetic peripheral neuropathy, acute or subacute inflammatory demyelinating polyneuropathy not excluded, but less likely in light of her clinical course. We might consider workup for those, including repeating nerve conduction study electively in a few weeks if she does not seem recovered to baseline. No urgent suggestion from Neurology standpoint today. cc: MD MCKENZIE Rocha III
[2019-05-13] MEDS: LIPITOR PO SCH (22:12)
[2019-05-14] MEDS: ROCEPHIN 2 GM in NS 50 ML IV SCH ×2 (06:10→17:07)
[2019-05-14] MEDS: NORCO-5 PO PRN ×2 (06:10→17:43)
[2019-05-14] MEDS: PROTONIX PO SCH (06:10)
[2019-05-14] MEDS: HEPARIN SUBQ SCH ×3 (06:10→22:00)
[2019-05-14 07:49] LABS: BASO# 0.04 X1000 (0.0-0.2); BASO% 0.2 % (0.0-0.8); EOS# 0.04 X1000 (0.0-0.7); EOS% 0.2 % (0.0-10.0); HEMATOCRIT 28.1 % (37.0-47.0); HEMOGLOBIN 8.4 g/dL (12.0-16.0); IMM GRAN# 0.24 X1000 (0.0-0.04); IMM GRAN% 1.3 % (0.0-0.5); LYMPH# 1.55 X1000 (1.2-3.4); LYMPH% 8.1 % (20.5-51.1); MCH 28.5 PG (27-31); MCHC 29.9 g/dL (33-37); MCV 95.3 FL (81-99); MONO# 1.15 X1000 (0.11-0.59); MPV 10.8 FL (7.4-10.4); NEUT# 16.16 X1000 (1.4-6.5); NEUT% 84.2 % (42.2-75.2); PLT 177 X1000 (130-400); RBC 2.95 XMIL (4.2-5.4); RDW 12.9 % (11.5-14.5); WBC 19.18 X1000 (4.8-10.8)
[2019-05-14] MEDS: XOPENEX NEB INH SCH ×3 (07:54→23:00)
[2019-05-14 08:08] LABS: AGAP 9; BUN 21 mg/dL (8-22); CALCIUM 8.9 mg/dL (8.8-10.2); CHLORIDE 104 mmol/L (98-107); COSMO 279; ESTIMATED GFR > 60; GLUCOSE 139 mg/dL (70-104); POTASSIUM 4.4 mmol/L (3.5-5.1); SODIUM 137 mmol/L (136-145); TCO2 24 mmol/L (25-35)
[2019-05-14] MEDS: TESSALON PO PRN (09:00)
[2019-05-14] MEDS: KLOR-CON PO SCH (10:36)
[2019-05-14] MEDS: MYCOSTATIN SUSP PO SCH ×4 (10:36→22:00)
[2019-05-14] MEDS: CORDARONE PO SCH (10:36)
[2019-05-14] MEDS: LANTUS INSULIN SUBQ SCH (10:37)
[2019-05-14] MEDS: HUMULIN R SUBQ SCH ×4 (10:47→22:00)
[2019-05-14] MEDS: HUMALOG SUBQ SCH ×2 (10:48→15:52)
[2019-05-14] MEDS: MORPHINE IV PRN ×2 (15:57→22:03)
--- NOTE | 2019-05-14 18:38 | PROGRESS NOTE ---
DATE: 05/14/2019 SUBJECTIVE: The patient seems to be stable. PICC line in place. Continue with ceftriaxone 2 gm twice a day for 6 weeks. The wound seems to be getting better. Her left middle finger is swollen but is covered with a dressing. The plan is to send this patient to a rehab center. OBJECTIVE: Vital Signs: Temperature 97.6 degrees, pulse 102, respiratory rate 18, blood pressure 108/69, oxygen saturation 99 on room air. HEENT: Head normocephalic, no trauma, PERRLA. Neck: Supple. No JVD. No masses. Central trachea. Chest: Some crepitus at the bases, probably a little bit of rhonchi scattered also. Cardiovascular: Regular rate and rhythm. She has an old sternotomy scar on the anterior chest wall. Abdomen: Soft. Extremities: The right medial aspect of the right thigh is covered with a dressing. It looks like it has some serous discharge. Her left middle finger is swollen and also has a dressing. I do not think it is draining. Neurological: The patient is awake, alert, she is oriented x3. She has some sensitive lower extremities which are painful to palpation and generalized weakness. LABORATORY: WBC 19.1, hemoglobin 8.4, hematocrit 28.1, platelets 177,000, sodium 137, potassium 4.4, chloride 104, bicarbonate 24, BUN 21, creatinine 1, glucose 137, calcium 8.9. ASSESSMENT AND PLAN: 1. Acute hypoxemic respiratory failure on admission secondary to multifocal pneumonia, seems to be getting better. Pulmonary Department on board, as well as Infectious Disease. 2. Left medial thigh cellulitis with abscess, status post incision and drainage. She has a PICC line in place. Continue with antibiotics and wound care. 3. Left middle finger paronychia with osteomyelitis of the distal phalanx and possible head of the middle phalanx. This has been corroborated by a triple phase bone scan report. The plan is to send this patient to a rehab center with a PICC line and treatment for 6 weeks with antibiotics, ceftriaxone 2 gm every 12 hours. 4. Uncontrolled type 2 diabetes with a hemoglobin A1c of 12.8. Blood sugar seems to be stable now. 5. History of mitral valvulopathy, status post bioprosthetic mitral valve replaced. Aware. 6. Acute on chronic kidney disease. This is getting much better. cc: Brian Sanchez MD
[2019-05-14] MEDS: ZYVOX PO SCH ×2 (18:58→22:00)
--- NOTE | 2019-05-14 19:40 | INFECTIOUS DISEASE PROGRESS NO ---
DATE: 05/14/2019 PRESENT ILLNESS: The patient is status post incision and drainage of a right thigh medial abscess which grew Streptococcus anginosus. The patient also has a left middle finger osteomyelitis. Finally, the patient has persistent leukocytosis. MEDICATIONS: This is day 2 of Rocephin 2 g IV every 12 hours. PHYSICAL EXAMINATION: Vital Signs: Temperature is 98 degrees, pulse 80, respirations 18, blood pressure 117/74. General: This is a morbidly obese, chronically ill-appearing, middle-aged female. She is in no acute distress. Head/eyes/ears/nose/throat: She can hear my spoken words and see near objects. She does not have any white coating on her tongue. Neck: No pain with movement. Lungs: Clear to auscultation. Cardiovascular: Heart rate is regular. Abdomen: Soft and nontender. Extremities: Patient has a PICC in the left arm. The site is not erythematous or purulent. The patient's left middle finger is swollen and it does have some necrotic tissue. The patient's right thigh is less indurated and the wound appears to be smaller and there is no odor or purulence present. LAB AND X-RAY: CBC shows a white count 19,180, hemoglobin 8.4, platelet count 177,000. Creatinine is 1.0. GFR is greater than 60. ASSESSMENT AND PLAN: The patient has osteomyelitis of the finger and also she is status post drainage of her thigh abscess. The patient is receiving IV Rocephin for the patient's finger osteomyelitis. Unfortunately, the patient's white blood cell continues to be elevated. My plan is to continue Rocephin and I have empirically started the patient on Zyvox. The patient also is on nystatin for oral candidiasis. At the first of the week I am going to get a CBC on the patient and hopefully the white blood cell count will be coming down. COMORBIDITIES: The patient is obese. She has diabetes mellitus, gastroesophageal reflux disease, coronary artery disease and congestive heart failure. cc: Dayday Bradshaw MD
[2019-05-14] MEDS: LIPITOR PO SCH (22:00)
[2019-05-15] MEDS: MORPHINE IV PRN ×2 (05:14→21:37)
[2019-05-15] MEDS: HEPARIN SUBQ SCH ×3 (05:20→21:38)
[2019-05-15] MEDS: PROTONIX PO SCH ×2 (05:20→06:02)
[2019-05-15] MEDS: ROCEPHIN 2 GM in NS 50 ML IV SCH ×2 (05:20→18:30)
[2019-05-15] MEDS: TESSALON PO PRN ×2 (05:23→21:38)
[2019-05-15] MEDS: HUMALOG SUBQ SCH ×3 (06:01→18:29)
--- NOTE | 2019-05-15 07:39 | Diag Imaging Result Doc PS360 ---
CHEST-1 VIEW - 05/15/2019 INDICATION: SOB COMPARISON: 05/11/2019 FINDINGS: There is a left PICC line in good position with the catheter tip at the upper SVC. Stable sternotomy wires. Stable cardiomegaly and significant pulmonary vascular congestion. No dense consolidations. IMPRESSION: New PICC line, otherwise no change from prior. Electronically signed by Sean Clarke 05/15/2019 7:37 AM
[2019-05-15] MEDS: XOPENEX NEB INH SCH ×3 (08:28→23:33)
[2019-05-15] MEDS ORDERED: LASIX IV ONE (08:30)
[2019-05-15] MEDS: LANTUS INSULIN SUBQ SCH (09:54)
[2019-05-15] MEDS: KLOR-CON PO SCH (09:54)
[2019-05-15] MEDS: CORDARONE PO SCH (09:54)
[2019-05-15] MEDS: MYCOSTATIN SUSP PO SCH ×4 (09:54→21:38)
[2019-05-15] MEDS: ZYVOX PO SCH ×2 (09:54→21:48)
[2019-05-15] MEDS: NORCO-5 PO PRN ×2 (09:54→18:29)
[2019-05-15] MEDS: HUMULIN R SUBQ SCH ×4 (09:55→21:33)
--- NOTE | 2019-05-15 12:06 | PROGRESS NOTE ---
DATE: 05/15/2019 SUBJECTIVE: The patient seems to be stable. Chest x-ray showed pulmonary vascular congestion, but no dense consolidations. I will give her a dose of Lasix. I will continue with same management. OBJECTIVE: Vital Signs: Temperature 98.5 degrees, pulse 98, respiratory rate 16, blood pressure 122/80, oxygen saturation 100% on 2 L of nasal cannula. HEENT: Head normocephalic, no trauma, PERRLA. Neck: Supple. No JVD. No masses. Central trachea. Chest: Some crepitus at the bases. Probably a little bit of rhonchi scattered also. Cardiovascular: RRR. She has an old sternotomy scar on the anterior chest wall. Abdomen: Soft. Extremities: The right medial aspect of the right thigh is covered with a dressing. It looks like it has some serous discharge. Her left middle finger is swollen. I removed the dressing and she has an area of skin ischemia, some white secretion. It is painful to palpation. Neurological: The patient is awake, alert, she is oriented x3. No focal deficit but she does have generalized weakness. LABORATORY: Pending lab work at this moment. Glucose 126. ASSESSMENT AND PLAN: 1. Acute hypoxemic respiratory failure secondary to multifocal pneumonia, the pneumonia seems to be getting better. She does have pulmonary vascular congestion. I will give her a dose of Lasix IV and I will monitor. She is on Lasix at home. 2. Right medial thigh cellulitis with abscess status post I and D. She has a PICC line in place. Continue with antibiotics and wound care. 3. Left middle finger paronychia with osteomyelitis of the distal phalanx and possible head of the middle phalanx. She has some ischemic lesion at the skin at the tip of the finger. She has some white secretion. We will recover this lesion and continue with antibiotics. 4. Uncontrolled type 2 diabetes with a hemoglobin A1c of 12.8. I had a conversation with this patient about her diabetes, which seems to be really uncontrolled at home, here has been more stable, so I will continue with the same management. She has been placed on insulin. 5. History of mitral valvulopathy, status post bioprosthetic mitral valve replacement, aware. No chest pain. 6. Acute on chronic kidney disease. This is better. Pending lab work today. cc: Brian Sanchez MD
--- NOTE | 2019-05-15 13:10 | PROGRESS NOTE ---
DATE: 05/15/2019 Ms. Tono Negrete is a 39-year-old overweight black female who underwent incision and drainage of a medial proximal right thigh abscess per Dr. Alvarez. She has a [place] drain in place. The wound is not draining any purulence, appears to be cleaning up with IV antibiotics and local wound care. cc: Altagracia Maldonado MD
[2019-05-15] MEDS: LIPITOR PO SCH (21:48)
[2019-05-16] MEDS: ROCEPHIN 2 GM in NS 50 ML IV SCH ×2 (05:02→18:24)
[2019-05-16] MEDS: HEPARIN SUBQ SCH ×3 (05:02→21:38)
[2019-05-16] MEDS: MORPHINE IV PRN ×3 (05:02→21:37)
[2019-05-16] MEDS: PROTONIX PO SCH ×2 (05:03→06:05)
[2019-05-16] MEDS: HUMALOG SUBQ SCH ×3 (05:59→18:24)
[2019-05-16 06:56] LABS: BASO# 0.02 X1000 (0.0-0.2); BASO% 0.1 % (0.0-0.8); HEMOGLOBIN 8.7 g/dL (12.0-16.0); IMM GRAN% 1.2 % (0.0-0.5); LYMPH# 1.43 X1000 (1.2-3.4); LYMPH% 8.9 % (20.5-51.1); MCH 28.8 PG (27-31); MONO# 0.86 X1000 (0.11-0.59); MONO% 5.3 % (1.7-9.3); MPV 10.7 FL (7.4-10.4); NEUT% 84.5 % (42.2-75.2); PLT 190 X1000 (130-400); RBC 3.02 XMIL (4.2-5.4); RDW 13.4 % (11.5-14.5); WBC 16.11 X1000 (4.8-10.8)
[2019-05-16 07:23] LABS: AGAP 10; ALB/GLOB RATIO 0.6; ALBUMIN 2.5 g/dL (3.5-5.0); ALKALINE PHOSPHATASE 124 U/L (32-104); BUN 14 mg/dL (8-22); CHLORIDE 103 mmol/L (98-107); COSMO 278; CREATININE 1.1 mg/dL (0.5-0.9); ESTIMATED GFR > 60; GLUCOSE 165 mg/dL (70-104); GOT 16 U/L (10-30); GPT 17 U/L (10-36); MAGNESIUM 1.5 mg/dL (1.5-2.7); POTASSIUM 4.5 mmol/L (3.5-5.1); SODIUM 137 mmol/L (136-145); TCO2 24 mmol/L (25-35); TOTAL BILIRUBIN 0.17 mg/dL (0.20-1.00); TOTAL PROTEIN 6.8 g/dL (6.3-8.3)
[2019-05-16] MEDS: XOPENEX NEB INH SCH ×3 (08:29→23:25)
[2019-05-16] MEDS: ZYVOX PO SCH ×2 (08:41→21:38)
[2019-05-16] MEDS: MYCOSTATIN SUSP PO SCH ×4 (08:42→21:38)
[2019-05-16] MEDS: LANTUS INSULIN SUBQ SCH (08:42)
[2019-05-16] MEDS: KLOR-CON PO SCH (08:42)
[2019-05-16] MEDS: CORDARONE PO SCH (08:42)
--- NOTE | 2019-05-16 10:41 | PROGRESS NOTE ---
DATE: 05/16/2019 SUBJECTIVE: Ms Tono Negrete, underwent incision and drainage of a proximal medial right thigh abscess per Dr. Alvarez. [place] drain remains in place and the wound is draining and we are changing dressings at least daily. OBJECTIVE: Her white blood cell count is improving. It is down to 16. Hematocrit is 29%. She is receiving IV antibiotics. She is awake and cooperative this morning. She is sitting up in bed. Her heart rate is 98, blood pressure 133/80, O2 saturation 100%. She is afebrile. PLAN: Continue wound care and IV antibiotics. cc: Altagracia Maldonado MD
[2019-05-16] MEDS ORDERED: LASIX IV ONE (10:45)
[2019-05-16] MEDS: HUMULIN R SUBQ SCH ×3 (14:36→21:38)
[2019-05-16] MEDS: NORCO-5 PO PRN (14:43)
--- NOTE | 2019-05-16 15:29 | PROGRESS NOTE ---
DATE: 05/16/2019 SUBJECTIVE: The patient seems to be stable. She is breathing better. She received a dose of Lasix yesterday and also today. We will see how she does. White blood cell count trending down, kidney function seems to be at baseline. Blood sugar seems to be stable. She does have generalized weakness. We will continue to monitor. The plan is to send this patient to a rehab center. OBJECTIVE: Vital Signs: Temperature 98.4 degrees, pulse 98, respiratory rate 18, blood pressure 131/77, oxygen saturation 99% on 1 L of nasal cannula. HEENT: Head normocephalic, no trauma, PERRLA. Neck: Supple. No JVD. No masses. Central trachea. Chest: Some crepitus at the bases probably some rhonchi to some crackles. Cardiovascular: RRR. She has an old sternotomy scar on the anterior chest wall. Abdomen: Soft. Extremities: The right medial aspect of the right thigh is covered with a dressing and it looks like it has some serous discharge. His left finger is swollen and when I removed the dressing yesterday there is an area of the skin that has ischemia with some secretion. It is painful to palpation. Neurological: Patient is awake alert. She is oriented x3. No focal deficit, but she does have generalized weakness. LABORATORY: WBC 16.1, hemoglobin 8.7, hematocrit 29.0, platelet 198,000. Sodium 137, potassium 4.5, chloride 103, bicarbonate 24, BUN 14, creatinine 1.1, glucose 165, calcium 9, magnesium 1.5. ASSESSMENT AND PLAN: 1. Acute hypoxemic respiratory failure secondary to multifocal pneumonia. This seems to be getting better. Also, she has pulmonary vascular congestion and she has been getting Lasix lately. 2. Right medial thigh cellulitis with abscess, status post incision and drainage. She has a PICC line in place. Continue with antibiotics and wound care. 3. Left middle finger paronychia with osteomyelitis of the distal phalanx and possible head of the middle phalanx. She has some ischemic lesion of the skin of the skin at the tip of the finger. She has some white secretion. We will continue with the same management. Surgery on board. 4. Uncontrolled type 2 diabetes with a hemoglobin A1c of 12.8. I had a conversation with this patient about diabetes and diet. She seems to understand, but during this hospitalization the blood sugar has been controlled but not at home. 5. History of mitral valvulopathy, status post bioprosthetic mitral valve replacement, aware. No chest pain. 6. Acute on chronic kidney disease. This is getting better. I believe this is her baseline. cc: Brian Sanchez MD
[2019-05-16] MEDS: LIPITOR PO SCH (21:37)
[2019-05-16] MEDS: TESSALON PO PRN (21:37)
[2019-05-17] MEDS: HEPARIN SUBQ SCH ×3 (06:14→22:29)
[2019-05-17] MEDS: PROTONIX PO SCH (06:14)
[2019-05-17] MEDS: MORPHINE IV PRN ×3 (06:15→22:29)
[2019-05-17] MEDS: ROCEPHIN 2 GM in NS 50 ML IV SCH ×2 (06:15→17:13)
[2019-05-17] MEDS: HUMALOG SUBQ SCH ×3 (06:19→17:12)
[2019-05-17 06:53] LABS: BASO# 0.02 X1000 (0.0-0.2); BASO% 0.1 % (0.0-0.8); EOS# 0.05 X1000 (0.0-0.7); EOS% 0.3 % (0.0-10.0); HEMATOCRIT 30.4 % (37.0-47.0); HEMOGLOBIN 9.1 g/dL (12.0-16.0); IMM GRAN# 0.18 X1000 (0.0-0.04); IMM GRAN% 1.2 % (0.0-0.5); LYMPH# 1.43 X1000 (1.2-3.4); LYMPH% 9.2 % (20.5-51.1); MCH 28.8 PG (27-31); MCHC 29.9 g/dL (33-37); MCV 96.2 FL (81-99); MONO# 0.83 X1000 (0.11-0.59); MONO% 5.3 % (1.7-9.3); MPV 10.5 FL (7.4-10.4); NEUT# 13.07 X1000 (1.4-6.5); NEUT% 83.9 % (42.2-75.2); PLT 180 X1000 (130-400); RBC 3.16 XMIL (4.2-5.4); RDW 13.5 % (11.5-14.5); WBC 15.58 X1000 (4.8-10.8)
[2019-05-17 07:32] LABS: ALB/GLOB RATIO 0.7; ALBUMIN 2.7 g/dL (3.5-5.0); CALCIUM 9.2 mg/dL (8.8-10.2); CREATININE 1.2 mg/dL (0.5-0.9); POTASSIUM 4.4 mmol/L (3.5-5.1); TOTAL BILIRUBIN 0.18 mg/dL (0.20-1.00); TOTAL PROTEIN 6.8 g/dL (6.3-8.3)
[2019-05-17] MEDS: XOPENEX NEB INH SCH ×3 (08:14→23:25)
[2019-05-17] MEDS: HUMULIN R SUBQ SCH ×4 (09:17→23:38)
[2019-05-17] MEDS: KLOR-CON PO SCH (10:00)
[2019-05-17] MEDS: CORDARONE PO SCH (10:00)
[2019-05-17] MEDS: LANTUS INSULIN SUBQ SCH (10:00)
[2019-05-17] MEDS: MYCOSTATIN SUSP PO SCH ×4 (10:00→22:29)
[2019-05-17] MEDS: NORCO-5 PO PRN ×3 (10:00→18:36)
[2019-05-17] MEDS: ZYVOX PO SCH ×2 (10:00→22:29)
--- NOTE | 2019-05-17 11:18 | NEUROLOGY PROGRESS NOTE ---
DATE: 05/17/2019 SUBJECTIVE: Ms. Negrete reports continued sense of improving strength. She does not have any new complaints today. Discomfort is much improved compared to admission. On exam, she demonstrates much better power testing the proximal leg muscles while supine. She still has some discomfort and this results in fluctuating effort, but with coaxing and repeated testing, she is able to show good power in the hip flexors. I did not test her gait. ASSESSMENT: I do not have any new thoughts today. I suspect this is diabetic peripheral neuropathy with acute/subacute exacerbation associated with her infection and hyperglycemia, and likely not additional inflammatory etiology for her neuropathy. No new suggestions from Neurology standpoint today. cc: MD MCKENZIE Rocha III
--- NOTE | 2019-05-17 13:19 | PROVIDER PROGRESS NOTE ---
Progress Note Dr. Mchugh Progress Note/Pulmonary and or critical care We appreciated progress of care, Complications, change in diagnosis, and instructions to patient. Subjective: We note the level of consciousness, bed (chair) position, family presence (if any), level of lethargy, feeling of symptoms, and changes from baseline condition/symptom. The patient is lying in bed with no acute distress noted. She is on NC at 2L. She states she is feeling better. She still has frequent cough, mainly dry, but with production at times. She reports breathing treatment helps her coughing stuff up. She has RLE weakness. Objective: Vital Signs: We reviewed EMR current values for Pulse rate, Blood pressure, Pulse rate, respiratory rate and Pulse oximetry. Also noted other values and trends if present (e.g. I/O, CVP). Vital Signs 05/16/19 19:59 05/16/19 23:26 05/17/19 00:00 Temperature 97.8 F 98.7 F Pulse Rate 93 H 93 H 99 H Respiratory Rate 18 18 18 Blood Pressure 119/71 125/56 O2 Sat by Pulse Oximetry 98 98 99 05/17/19 04:00 05/17/19 07:41 05/17/19 08:14 Temperature 98.5 F 98.4 F Pulse Rate 100 H 99 H 109 H Respiratory Rate 18 18 20 Blood Pressure 140/98 120/72 O2 Sat by Pulse Oximetry 99 100 98 05/17/19 11:19 Temperature 97.9 F Pulse Rate 103 H Respiratory Rate 16 Blood Pressure 110/72 O2 Sat by Pulse Oximetry 99 Intake & Output 05/16/19 05/17/19 05/17/19 19:59 07:59 19:59 Intake Total 240 / 240 Balance 240 / 240 Intake: Intake, Oral Amount 240 / 240 Other: Percent of Meal Consumed 0 Number of Continent Voids Not 2 2 Measured Number of Bowel Movements 0 2 Physical Examination: General: Morbidly obese. Lying in bed with no acute distress noted. HEENT: Atraumatic. Normocephalic. Trachea midline. Mucosa pink and moist. Chest: Even and unlabored. Symmetrical excursion. Clear to auscultation bilaterally. CVS: Regular rate and rhythm with S1 and S2 appreciated. Abdomen: Obese. Non-tender. Soft. Normoactive bowel sounds in all 4 quadrants. Extremities: No pedal edema. Left 3rd finger swelling and thick yellow drainage around the nail bed. Neuro: A/O x3. Speech fluent. Follow commands. RLE weakness present. Labs and Radiology: Reviewed available labs and radiology values available at time of EMR review. Laboratory Results 05/16/19 05/16/19 05/16/19 13:34 16:51 21:38 WBC RBC Hgb Hct MCV MCH MCHC RDW Std Deviation Plt Count MPV Immature Gran % (Auto) Neut % (Auto) Lymph % (Auto) Dare % (Auto) Eos % (Auto) Baso % (Auto) Immature Gran # (Auto) Neut # (Auto) Lymph # (Auto) Dare # (Auto) Eos # (Auto) Baso # (Auto) Sodium Potassium Chloride Carbon Dioxide Anion Gap BUN Creatinine Estimated GFR/1.73 m2 BUN/Creatinine Ratio Glucose POC Glucose 113 H 151 H 94 Calculated Osmolality Calcium Total Bilirubin AST ALT Alkaline Phosphatase Total Protein Albumin Globulin Albumin/Globulin Ratio 05/17/19 05/17/19 05/17/19 00:14 06:03 06:25 WBC 15.58 H RBC 3.16 L Hgb 9.1 L Hct 30.4 L MCV 96.2 MCH 28.8 MCHC 29.9 L RDW Std Deviation 13.5 Plt Count 180 MPV 10.5 H Immature Gran % (Auto) 1.2 H Neut % (Auto) 83.9 H Lymph % (Auto) 9.2 L Dare % (Auto) 5.3 Eos % (Auto) 0.3 Baso % (Auto) 0.1 Immature Gran # (Auto) 0.18 H Neut # (Auto) 13.07 H Lymph # (Auto) 1.43 Dare # (Auto) 0.83 H Eos # (Auto) 0.05 Baso # (Auto) 0.02 Sodium Potassium Chloride Carbon Dioxide Anion Gap BUN Creatinine Estimated GFR/1.73 m2 BUN/Creatinine Ratio Glucose POC Glucose 139 H 125 H Calculated Osmolality Calcium Total Bilirubin AST ALT Alkaline Phosphatase Total Protein Albumin Globulin Albumin/Globulin Ratio 05/17/19 05/17/19 05/17/19 06:25 08:45 12:19 WBC RBC Hgb Hct MCV MCH MCHC RDW Std Deviation Plt Count MPV Immature Gran % (Auto) Neut % (Auto) Lymph % (Auto) Dare % (Auto) Eos % (Auto) Baso % (Auto) Immature Gran # (Auto) Neut # (Auto) Lymph # (Auto) Dare # (Auto) Eos # (Auto) Baso # (Auto) Sodium 138 Potassium 4.4 Chloride 102 Carbon Dioxide 25 Anion Gap 11 BUN 12 Creatinine 1.2 H Estimated GFR/1.73 m2 60 BUN/Creatinine Ratio 10 Glucose 123 H POC Glucose 130 H 164 H Calculated Osmolality 277 Calcium 9.2 Total Bilirubin 0.18 L AST 15 ALT 16 Alkaline Phosphatase 124 H Total Protein 6.8 Albumin 2.7 L Globulin 4.1 Albumin/Globulin Ratio 0.7 Assessment: Acute hypoxemic respiratory failure. Pneumonia with LLL moderate subsegmental atelectasis and RLL mild subsegmental atelectasis per CT on 05/03/19. LUE digit paronychia with osteomyelitis. Morbid obesity. Uncontrolled diabetes. Right medial thigh cellulitis with a large abscess s/p I&D on 05/07/19, culture growing gram-positive cocci. Acute on chronic kidney disease. Improved. Plan: Continue current treatment and supportive care per admitting and other teams on the case. Antibiotics: ceftriaxone and linezolid. Bronchodilators. Encourage incentive spirometer routinely. Appropriate DVT and GI prophylaxis. Input was appreciated from Admitting MD and other teams on the case. Evaluation time in minutes: 11 minutes.
--- NOTE | 2019-05-17 14:54 | PROGRESS NOTE ---
DATE: 05/17/2019 SUBJECTIVE: The patient seems to be more stable. I had a discussion about physical therapy. I believe she needs to do more physical activity during this hospitalization. The plan is to send this patient to a rehab center, and she agreed with that. OBJECTIVE: Vital Signs: Temperature 97.9 degrees, pulse 103, respiratory rate 16, blood pressure 110/72, oxygen saturation 99% on 2 L of nasal cannula. HEENT: Head normocephalic. No trauma. PERRLA. Neck: Supple. No JVD. No masses. Central trachea. Chest: Some crepitus at the bases, probably some rhonchi as well. Cardiovascular: RRR. She has an old sternotomy scar on the left anterior chest wall. Abdomen: Soft. Extremities: The right medial aspect of the right thigh is covered with a dressing. It looks like she has some serous discharge. Her left finger is swollen. I removed the dressing today and it showed an area of skin that is ischemic with some secretion. It is painful to palpation. Neurological: The patient is awake. She is alert. She does have generalized weakness but no focal deficits. Peripheral neuropathy. LABORATORY: WBC 15.5, hemoglobin 9.1, hematocrit 30.4, platelet count 180,000. Sodium 138, potassium 4.4, chloride 102, bicarbonate 25, BUN 12, creatinine 1.2, glucose 123, calcium 9.2. ASSESSMENT AND PLAN: 1. Acute hypoxemic respiratory failure secondary to multifocal pneumonia. This seems to be getting better. Also, she has pulmonary vascular congestion, and she has been getting Lasix lately. 2. Right medial thigh cellulitis with abscess status post incision and drainage. She has a PICC line in place. Continue with antibiotics and wound care. infectious Disease department on board. 3. Left middle finger osteomyelitis of the distal phalanx and possible head of the middle phalanx. She has some ischemic lesion of the skin at the tip of the finger with some white secretion. We will continue with same management. Surgery and Infectious Disease department on board. 4. Uncontrolled type 2 diabetes with a hemoglobin A1c of 12.8. During this hospitalization, the blood sugar has been controlled. 5. History of mitral valvulopathy, status post bioprosthetic mitral valve replacement, aware. No chest pain. 6. Acute on chronic kidney disease. This is getting better. I believe this is her baseline. 7. Severe peripheral neuropathy, likely due to uncontrolled diabetes. Aware. Neurology Department has been evaluating this patient. 8. Generalized weakness and physical deconditioning. PLAN: The plan is to send this patient to a rehab center. cc: Brian Sanchez MD
--- NOTE | 2019-05-17 15:50 | Diag Imaging Result Doc PS360 ---
EXAM: CT EXT LOWER RIGHT W/CON 05/17/2019 HISTORY: R thigh infection TECHNIQUE: CT of the right hemipelvis and thigh with intravenous contrast COMMENT: The collection of gas and fluid which was present in the subcutaneous fat adjacent to the medial thigh musculature on the previous study of 05/07/2019 has apparently been drained. The drain is seen medially. There is still a fluid collection with gas seen in the superficial to the muscle. This has decreased in extent however and there is less apparent subcutaneous edema generally. There is some residual fluid posteriorly measuring 5.5 cm in superior-inferior dimension and 2.7 cm in transverse dimension. This is at some distance from the surgical drains. Otherwise the volume of the abscess appears to have diminished considerably. There is inguinal adenopathy with a node measuring 2.3 cm in long axis. This previously measured 1.7 cm. IMPRESSION: Subcutaneous abscess in the medial thigh status post incision and drainage. Electronically signed by Santiago Putnam 05/17/2019 3:48 PM
--- NOTE | 2019-05-17 18:29 | INFECTIOUS DISEASE PROGRESS NO ---
DATE: 05/17/2019 PRESENT ILLNESS: The patient is status post incision and drainage of a right medial thigh abscess which grew Streptococcus anginosus. She also has a left middle finger osteomyelitis and finally, the patient has a persistent leukocytosis. The patient has oral candidiasis. MEDICATIONS: This is day #5 of treatment with Rocephin. PHYSICAL EXAMINATION: Vital Signs: Temperature is 97.9 degrees, pulse 103, respirations 16, blood pressure is 110/72. General: This is a morbidly obese, chronically ill-appearing, middle- aged female. She is in no acute distress. Head/eyes/ears/nose/throat: She can hear my spoken words and see near objects. I do not see any white patches in her mouth. Neck: No pain with movement. Lungs: Clear to auscultation. Cardiovascular: Heart rate is regular. Abdomen: Soft and nontender. Extremities: The patient has a PICC in the left arm. The site of entrance of the catheter is not swollen or purulent. The patient's left middle finger is less swollen and there is no drainage coming from it and finally, the patient's right thigh incision has a drain in it and the thigh is less indurated than it was before surgery, but it still remains indurated with some peau d' orange overlying skin. Neurologic: The patient is alert. She can move her extremities. There is no tremor. LAB AND X-RAY: There is no new radiographic study today. CBC shows a white count of 15,580, hemoglobin 9.1, and platelet count 180,000. Creatinine is 1.2. GFR is 60. ASSESSMENT AND PLAN: Patient has osteomyelitis of the finger and her right thigh abscess. I am going to continue Rocephin. I am ordering a repeat CT scan of the right thigh. I am going to continue oral nystatin for the patient's oral candidiasis. COMORBIDITIES: The patient is obese. She has diabetes mellitus, gastroesophageal reflux disease, coronary artery disease and congestive heart failure. cc: Dayday Bradshaw MD
--- NOTE | 2019-05-17 21:14 | GENERAL SURGERY PROGRESS NOTE ---
DATE: 05/17/2019 SUBJECTIVE: No fevers. Pain in her leg is improving. The drainage is decreasing. She states that her range of motion in the left finger is improving as well. OBJECTIVE: On exam, she is alert. She has a [place] drain in place. There is persistent induration, but I see no evidence of undrained fluid collection. There is no crepitus. There is no cellulitis. Her left finger again is somewhat stiff, but there is no cellulitis and no necrosis. ASSESSMENT AND PLAN: This is a female with complicated right medial thigh abscess, status post incision and drainage. We will keep her Jose for another day or so, and then plan on removing this. Otherwise, we will continue antibiotics per the hospitalist and infectious disease service. Her glucoses are better, but still are high. cc: Jose Daniel Alvarez MD
[2019-05-17] MEDS: LIPITOR PO SCH (22:29)
[2019-05-18] MEDS: HEPARIN SUBQ SCH ×3 (05:27→21:33)
[2019-05-18] MEDS: ROCEPHIN 2 GM in NS 50 ML IV SCH ×2 (05:27→18:01)
[2019-05-18] MEDS: NORCO-5 PO PRN ×3 (06:14→18:36)
[2019-05-18] MEDS: PROTONIX PO SCH (06:14)
[2019-05-18 07:14] LABS: HEMATOCRIT 28.7 % (37.0-47.0); HEMOGLOBIN 8.5 g/dL (12.0-16.0); MCH 28.6 PG (27-31); MCHC 29.6 g/dL (33-37); MCV 96.6 FL (81-99); MPV 10.7 FL (7.4-10.4); RBC 2.97 XMIL (4.2-5.4); RDW 13.8 % (11.5-14.5); WBC 13.55 X1000 (4.8-10.8)
[2019-05-18 07:32] LABS: AGAP 11; BUN 11 mg/dL (8-22); CALCIUM 8.8 mg/dL (8.8-10.2); CHLORIDE 104 mmol/L (98-107); COSMO 279; CREATININE 1.1 mg/dL (0.5-0.9); ESTIMATED GFR > 60; GLUCOSE 136 mg/dL (70-104); MAGNESIUM 1.4 mg/dL (1.5-2.7); PHOSPHORUS 3.6 mg/dL (2.7-4.5); POTASSIUM 4.7 mmol/L (3.5-5.1); SODIUM 139 mmol/L (136-145); TCO2 24 mmol/L (25-35)
--- NOTE | 2019-05-18 07:42 | Diag Imaging Result Doc PS360 ---
CHEST-1 VIEW - 05/18/2019 INDICATION: SOB COMPARISON: 05/15/2019 FINDINGS: Stable left PICC line in good position. Stable cardiomegaly and pulmonary vascular congestion. No dense consolidations. No large pleural effusions. IMPRESSION: No change from prior. Electronically signed by Sean Clarke 05/18/2019 7:39 AM
[2019-05-18] MEDS: HUMALOG SUBQ SCH ×3 (08:10→17:42)
[2019-05-18] MEDS: MORPHINE IV PRN ×2 (08:15→21:37)
[2019-05-18] MEDS: XOPENEX NEB INH SCH ×3 (08:30→23:38)
[2019-05-18] MEDS: HUMULIN R SUBQ SCH ×4 (09:10→22:35)
[2019-05-18] MEDS: MYCOSTATIN SUSP PO SCH ×4 (09:56→21:33)
[2019-05-18] MEDS: CORDARONE PO SCH (09:57)
[2019-05-18] MEDS: KLOR-CON PO SCH (09:57)
[2019-05-18] MEDS: ZYVOX PO SCH ×2 (09:57→21:33)
[2019-05-18] MEDS: LANTUS INSULIN SUBQ SCH (09:58)
--- NOTE | 2019-05-18 11:54 | PROGRESS NOTE ---
DATE: 05/18/2019 SUBJECTIVE: Patient reports feeling fine. Denies any fever or chills. I was informed by the social science research assistant that this patient's insurance company will not pay for his rehabilitation. OBJECTIVE: Vital Signs: Temperature 98.2 degrees, heart rate 94, respiratory rate 16, and blood pressure 137/85. O2 saturation 100% on 2 L nasal cannula. General: This is a morbidly obese 39- year-old female lying in bed in no acute distress. Cardiovascular: S1, S2 heard. No murmurs, gallops, or rubs. Regular rate and rhythm. She has an old sternotomy scar on the left anterior chest wall. Respiratory: Minimal crackles are noted in both bases. Patient is not using any accessory muscles or having work of breathing. Abdomen: Soft. Nontender to palpation. Bowel sounds present. No organomegaly. Extremities: Right medial aspect, the right thigh is covered with dressing that has serosanguineous discharge. The finger still swollen. Still painful to palpation. Neurological: Patient alert and oriented x3. Moves all 4 extremities. LABORATORY DATA: White cell count 13.55, hemoglobin 9.5, hematocrit 28.7, and platelets 172,000. BMP reveals creatinine 1.1 with glucose of 136. ASSESSMENT/PLAN: 1. Acute respiratory failure secondary to multifocal pneumonia. Patient currently requiring 2 L of oxygen by nasal cannula. She reports breathing better. The x-ray from today showed no change from prior with no large pleural effusions. No dense consolidation, stable cardiomegaly and pulmonary vascular congestion. At this point, we will continue with same management. 2. Right medial thigh cellulitis with abscess status post incision and drainage. Patient is on ceftriaxone day #7 of treatment and Zyvox day #4. The patient did have Jose drain. General Surgery following this patient. We will follow recommendations. 3. 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 Dr. Bradshaw from Infectious Disease providing antibiotics for this patient. We will continue with same management. 4. Uncontrolled diabetes mellitus with hemoglobin A1c of 12.8. Blood sugars are much better controlled. We will continue with current management. 5. History of mitral valvulopathy status post bioprosthetic mitral valve replacement. Aware. Not complaining of any symptoms. 6. Acute kidney injury. Creatinine is almost back to normal with normal GFR. We will continue to monitor. 7. Severe peripheral neuropathy secondary to uncontrolled diabetes. Aware. We will continue with the current management. DISPOSITION: I think at this point the patient has denied to go to rehab facility. We will be talking with Infectious Disease to see for how long this patient will need antibiotics. Then, we will try to send this patient with IV antibiotics. PICC line has been placed already. cc: Salinas Enriquez MD
--- NOTE | 2019-05-18 12:00 | PROVIDER PROGRESS NOTE ---
Progress Note Dr. Mchugh Progress Note/Pulmonary and or critical care We appreciated progress of care, Complications, change in diagnosis, and instructions to patient. Subjective: We note the level of consciousness, bed (chair) position, family presence (if any), level of lethargy, feeling of symptoms, and changes from baseline condition/symptom. The patient is sitting on the bedside chair with no acute distress noted. She is on NC at 2L with SaO2 100%. She states she is feeling better. She has dry cough at times, which has been improved. She still has RLE weakness and SOB with activities. Objective: Vital Signs: We reviewed EMR current values for Pulse rate, Blood pressure, Pulse rate, respiratory rate and Pulse oximetry. Also noted other values and trends if present (e.g. I/O, CVP). T 98.2, MA 111, RR 16, BP 137/85 and SaO2 97% on NC 2 L. Physical Examination: General: Morbidly obese. Lying in bed with no acute distress noted. HEENT: Atraumatic. Normocephalic. Trachea midline. Mucosa pink and moist. Chest: Even and unlabored. Symmetrical excursion. Clear to auscultation bilaterally. CVS: Regular rate and rhythm with S1 and S2 appreciated. Abdomen: Obese. Non-tender. Soft. Normoactive bowel sounds in all 4 quadrants. Extremities: No pedal edema. Left 3rd finger swelling and thick yellow drainage around the nail bed. Neuro: A/O x3. Speech fluent. Follow commands. RLE weakness present. Labs and Radiology: Reviewed available labs and radiology values available at time of EMR review. CBC: mild leukocytosis (improving from yesterday), anemia. BMP: mildly elevated creatinine, elevated glucose, mildly hypomagnesemia. CXR: no change from prior. Assessment: Acute hypoxemic respiratory failure. Pneumonia with LLL moderate subsegmental atelectasis and RLL mild subsegmental atelectasis per CT on 05/03/19. Improving. LUE digit paronychia with osteomyelitis. Morbid obesity. Uncontrolled diabetes. Right medial thigh cellulitis with a large subcutaneous abscess s/p I&D on 05/07/19, culture growing gram-positive cocci. Acute on chronic kidney disease. Improved. Plan: Continue current treatment and supportive care per admitting and other teams on the case. Weaning oxygen therapy as tolerated. Antibiotics: ceftriaxone and linezolid. Bronchodilators. Physical therapy. Encourage incentive spirometer use routinely. Appropriate DVT and GI prophylaxis. Input was appreciated from Admitting MD and other teams on the case.
--- NOTE | 2019-05-18 16:30 | INFECTIOUS DISEASE PROGRESS NO ---
DATE: 05/18/2019 PRESENT ILLNESS: The patient is status post incision and drainage of a right medial thigh and it grew Streptococcus anginosus. I obtained a CT scan of the patient's thigh yesterday and it shows that there is a residual 5.5 cm x 2 cm abscess remaining in the right thigh, but it appears to be draining through where the drain site is. In addition, the patient's left middle finger osteomyelitis is draining and the Gram stain showed gram-negative cocci, but the culture is showing gram-positive cocci. The patient also has oral candidiasis. MEDICATIONS: This is day 6 of treatment with intravenous Rocephin. PHYSICAL EXAMINATION: Vital Signs: Temperature is 97.7 degrees, pulse 100, respirations 18, blood pressure 122/84. General: This is a morbidly obese, somewhat ill-appearing, middle-aged female. She is in no acute distress. Head/eyes/ears/nose/throat: She can hear my spoken words and see near objects. There is no drainage coming from her nose or ears. Neck: No pain with movement. Lungs: Clear to auscultation. Cardiovascular: Regular heart rate. Abdomen: Soft and nontender. Extremities: The patient has a PICC in her left arm. The site is not bleeding or purulent. The patient's right thigh is less swollen and indurated than it was before. There is still a drain in place and there is some purulent fluid coming out. Neurologic: The patient is alert. She can move her extremities. There is no tremor. LAB AND X-RAY: CBC finally shows that the white count is coming down to 13,550, hemoglobin 8.5, and platelet count 172,000. Creatinine is 1.1. GFR is greater than 60. As mentioned above the patient's left middle finger culture shows on Gram stain gram-negative coccus and on culture gram- positive coccus. CT scan of the right thigh shows a 5.5 x 2.7 cm residual abscess. Chest x-ray shows cardiomegaly and pulmonary vascular congestion. Creatinine is 1.1. GFR is greater than 60. ASSESSMENT AND PLAN: For right now, I am going to continue the patient's Rocephin pending on the culture results from the patient's finger. The patient will require 6 weeks of treatment for the finger osteomyelitis. Also, the patient will require continued antibiotics for her right thigh residual abscess. Also, I plan to continue nystatin swish and swallow for her oral candidiasis. COMORBIDITIES: The patient is obese, and she has diabetes mellitus, gastroesophageal reflux disease, coronary artery disease and congestive heart failure. cc: Dayday Bradshaw MD
[2019-05-18] MEDS: LIPITOR PO SCH (21:33)
[2019-05-19] MEDS: HEPARIN SUBQ SCH ×3 (04:44→21:23)
[2019-05-19] MEDS: NORCO-5 PO PRN ×4 (04:44→16:37)
[2019-05-19] MEDS: ROCEPHIN 2 GM in NS 50 ML IV SCH ×2 (04:44→16:39)
[2019-05-19] MEDS: HUMALOG SUBQ SCH ×3 (07:00→16:55)
[2019-05-19 07:31] LABS: BASO# 0.02 X1000 (0.0-0.2); BASO% 0.2 % (0.0-0.8); EOS# 0.04 X1000 (0.0-0.7); EOS% 0.3 % (0.0-10.0); HEMOGLOBIN 9.5 g/dL (12.0-16.0); IMM GRAN# 0.06 X1000 (0.0-0.04); IMM GRAN% 0.5 % (0.0-0.5); LYMPH# 1.33 X1000 (1.2-3.4); LYMPH% 10.2 % (20.5-51.1); MCH 28.8 PG (27-31); MCHC 29.7 g/dL (33-37); MONO# 0.67 X1000 (0.11-0.59); MONO% 5.1 % (1.7-9.3); MPV 10.7 FL (7.4-10.4); NEUT# 10.94 X1000 (1.4-6.5); NEUT% 83.7 % (42.2-75.2); PLT 174 X1000 (130-400); RDW 14.3 % (11.5-14.5); WBC 13.06 X1000 (4.8-10.8)
[2019-05-19 08:04] LABS: ALBUMIN 2.7 g/dL (3.5-5.0); CALCIUM 8.7 mg/dL (8.8-10.2); CREATININE 1.3 mg/dL (0.5-0.9); MAGNESIUM 1.6 mg/dL (1.5-2.7); PHOSPHORUS 3.8 mg/dL (2.7-4.5); POTASSIUM 4.5 mmol/L (3.5-5.1)
[2019-05-19] MEDS: XOPENEX NEB INH SCH ×2 (08:12→15:47)
[2019-05-19] MEDS: CORDARONE PO SCH (08:37)
[2019-05-19] MEDS: KLOR-CON PO SCH (08:37)
[2019-05-19] MEDS: ZYVOX PO SCH ×2 (08:37→21:23)
[2019-05-19] MEDS: MYCOSTATIN SUSP PO SCH ×4 (08:37→21:23)
[2019-05-19] MEDS: HUMULIN R SUBQ SCH ×3 (08:40→17:29)
[2019-05-19] MEDS: LANTUS INSULIN SUBQ SCH (08:47)
[2019-05-19] MEDS: PROTONIX PO SCH (08:48)
--- NOTE | 2019-05-19 10:09 | PROGRESS NOTE ---
DATE: 05/19/2019 SUBJECTIVE: Patient reports feeling nauseated, apparently she just dropped once. Denies any fever or chills. No other complaints noted. OBJECTIVE: Vital Signs: Temperature 97.7 degrees, heart rate 100, respiratory rate 18, blood pressure 122/84, O2 saturation 100% on 2 liters nasal cannula. General Examination: This is a morbidly obese 39-year-old female lying in bed, in no acute distress. Cardiovascular: S1, S2 heard. No murmurs, gallops, or rubs. Regular rate and rhythm. Respiratory: Minimal crackles noted in both pulmonary bases. Patient not using any accessory muscles or having work of breathing. Abdomen: Soft, nontender to palpation. Bowel sounds present. No organomegaly. Extremities: No clubbing or cyanosis. There is, in the right medial aspect of the thigh, an area that is covered by dressing, has some serosanguineous discharge. Left middle finger still swollen. Still painful to palpation. Neurological: Patient is alert and oriented x3. Moves 4 extremities. LABORATORY DATA: White cell count 13.06, hemoglobin 9.5, hematocrit 32, platelets 174,000 with BMP that reveals creatinine 1.3. Magnesium 1.6, phosphorus 2.9. ASSESSMENT AND PLAN: 1. Acute respiratory failure secondary to multifocal pneumonia. Clinically, the patient reports feeling nauseated, but not short of breath. Continues requiring 2 liters of oxygen by nasal cannula. She reports breathing better. So, at this point, we will continue with the same antibiotic management. 2. Right medial thigh cellulitis with abscess, status post incision and drainage. Dr. Bradshaw, yesterday, ordered lower extremity CT, which shows subcutaneous abscess in the medial thigh, but does not look to be surgically drainable. Managing from his standpoint is to continue with intravenous antibiotics. The results of the culture from the right thigh shows Streptococcus anginosus, but the culture from the left middle finger is still pending, just showed gram-positive cocci with an obvious Staphylococcus or methicillin- resistant Staphylococcus aureus. In any case, this patient is currently on Zyvox and ceftriaxone. Dr. Bradshaw is managing the antibiotics. We will call [facility] to see if there is any preliminary report from this patient. 3. Uncontrolled diabetes mellitus type 2 with hemoglobin A1c of 12.8. We will continue with sliding scale insulin and Accu-Chek before meals and also at bedtime. 4. History of mitral valvulopathy, status post bioprosthetic mitral valve replacement. Aware. Not complaining of any symptoms at this point. 5. Acute kidney injury. Creatinine is slightly elevated, still to 1.3. We will continue to monitor. 6. Severe peripheral neuropathy secondary to uncontrolled diabetes, aware. We will continue current management. 7. Disposition. At this point, we will keep this patient in the hospital considering that she is nauseated while we wait for results of the culture of the left middle finger, and tomorrow we will discharge this patient with intravenous antibiotics directed by Dr. Dayday Bradshaw. cc: Salinas Enriquez MD MTDD
--- NOTE | 2019-05-19 13:09 | PROVIDER PROGRESS NOTE ---
Progress Note Dr. Mchugh Progress Note/Pulmonary and or critical care We appreciated progress of care, Complications, change in diagnosis, and instructions to patient. Subjective: We note the level of consciousness, bed (chair) position, family presence (if any), level of lethargy, feeling of symptoms, and changes from baseline condition/symptom. The patient is sitting on the bedside chair and having lunch with no acute distress noted. She is on NC at 2L. She states she is feeling better. She has no complaint at this time. Objective: Vital Signs: We reviewed EMR current values for Pulse rate, Blood pressure, Pulse rate, respiratory rate and Pulse oximetry. Also noted other values and trends if present (e.g. I/O, CVP). T 98, ND 103, RR 16, BP 120/76 and SaO2 99% on NC 1 L. Physical Examination: General: Morbidly obese. Lying in bed with no acute distress noted. HEENT: Atraumatic. Normocephalic. Trachea midline. Mucosa pink and moist. Chest: Even and unlabored. Symmetrical excursion. Clear to auscultation bilaterally. CVS: Tachycardia. Regular rate and rhythm with S1 and S2 appreciated. Abdomen: Obese. Non-tender. Soft. Normoactive bowel sounds in all 4 quadrants. Extremities: No pedal edema. Left 3rd finger swelling and thick yellow drainage around the nail bed. Neuro: A/O x3. Speech fluent. Follow commands. RLE weakness present. Labs and Radiology: Reviewed available labs and radiology values available at time of EMR review. CBC: mild leukocytosis (slowly improving from yesterday), normocytic anemia. BMP: elevated creatinine, elevated glucose, mildly hypocalcemia. Assessment: Acute hypoxemic respiratory failure. Pneumonia with LLL moderate subsegmental atelectasis and RLL mild subsegmental atelectasis per CT on 05/03/19. Improving. LUE digit paronychia with osteomyelitis. Morbid obesity. Uncontrolled diabetes. Right medial thigh cellulitis with a large subcutaneous abscess s/p I&D on 05/07/19, culture growing gram-positive cocci. Acute on chronic kidney disease. Worsening. Plan: Continue current treatment and supportive care per admitting and other teams on the case. Weaning oxygen therapy as tolerated. Antibiotics: ceftriaxone and linezolid per Dr. Bradshaw. Bronchodilators. Encourage incentive spirometer routinely. Appropriate DVT and GI prophylaxis. Discharge planning per Admitting MD. Input was appreciated from Admitting MD and other teams on the case.
--- NOTE | 2019-05-19 15:13 | INFECTIOUS DISEASE PROGRESS NO ---
DATE: 05/19/2019 PRESENT ILLNESS: The patient is status post incision and drainage of a right medial thigh abscess from which Streptococcus anginosus was isolated. The abscess continues to get better. There still is some drainage coming from it. The patient also has osteomyelitis of the left middle finger. I have not seen it draining but the patient said sometimes it still does drain. In any event, I sent the drainage a culture and on gram stain, gram-negative cocci were seen, but on culture gram-positive cocci have been seen, and neither one has been identified. Also, the culture now is four days old. And, finally the patient has oral candidiasis. MEDICATIONS: This is day 7 of treatment with Rocephin. PHYSICAL EXAMINATION: Vital Signs: Temperature is 98 degrees, pulse 103, respirations 16, blood pressure 120/76. General: This is a morbidly obese, somewhat ill appearing, middle-aged female. She is in no acute distress at this time and in fact, now she is able to get around better, including standing and walking. Head/eyes/ears/nose/throat: She can hear my spoken words and see near objects. I do not see any white patches on her tongue. Neck: No pain with movement. Lungs: Clear to auscultation. Cardiovascular: Heart rate is regular. Abdomen: Soft and nontender. Extremities: The patient has a PICC in her left arm. The site is not erythematous or draining. The patient's right thigh abscess is less swollen and indurated. There still is a little bit of drainage. Regarding her left middle finger, it still is a little bit swollen. I do not see it draining currently and I think overall it is better. LAB AND X-RAY: CBC shows a white count of 13,060, hemoglobin 9.5, and platelet count 174,000. Creatinine is 1.3. GFR 55. The drainage coming from the patient's finger, as mentioned above, is growing gram-positive coccus and on gram stain, gram-negative cocci were seen. ASSESSMENT AND PLAN: For right now, I am going to continue with Rocephin as a single agent, pending the result of the patient's finger culture. Also, I am going to continue nystatin swish and swallow for her oral candidiasis. COMORBIDITIES: Obesity, diabetes mellitus, gastroesophageal reflux disease, coronary artery disease and congestive heart failure. cc: Dayday Bradshaw MD
[2019-05-19] MEDS: LIPITOR PO SCH (21:23)
[2019-05-19] MEDS: MORPHINE IV PRN (21:24)
[2019-05-20] MEDS: HUMULIN R SUBQ SCH ×2 (00:04→09:03)
[2019-05-20] MEDS: XOPENEX NEB INH SCH ×2 (00:36→07:45)
[2019-05-20] MEDS: ROCEPHIN 2 GM in NS 50 ML IV SCH (05:42)
[2019-05-20] MEDS: HEPARIN SUBQ SCH (05:42)
[2019-05-20] MEDS: PROTONIX PO SCH (06:39)
[2019-05-20] MEDS: HUMALOG SUBQ SCH ×2 (06:40→11:17)
[2019-05-20 07:45] LABS: BASO# 0.02 X1000 (0.0-0.2); BASO% 0.2 % (0.0-0.8); HEMATOCRIT 29.6 % (37.0-47.0); HEMOGLOBIN 8.6 g/dL (12.0-16.0); IMM GRAN# 0.04 X1000 (0.0-0.04); IMM GRAN% 0.3 % (0.0-0.5); LYMPH# 1.54 X1000 (1.2-3.4); MCH 28.4 PG (27-31); MCHC 29.1 g/dL (33-37); MCV 97.7 FL (81-99); MONO# 0.56 X1000 (0.11-0.59); MONO% 4.7 % (1.7-9.3); MPV 10.7 FL (7.4-10.4); NEUT# 9.65 X1000 (1.4-6.5); NEUT% 81.8 % (42.2-75.2); PLT 152 X1000 (130-400); RBC 3.03 XMIL (4.2-5.4); RDW 14.3 % (11.5-14.5); WBC 11.81 X1000 (4.8-10.8)
[2019-05-20 07:53] LABS: ALBUMIN 2.6 g/dL (3.5-5.0); CALCIUM 8.6 mg/dL (8.8-10.2); CREATININE 1.4 mg/dL (0.5-0.9); MAGNESIUM 1.5 mg/dL (1.5-2.7); PHOSPHORUS 3.9 mg/dL (2.7-4.5); POTASSIUM 4.7 mmol/L (3.5-5.1)
[2019-05-20] MEDS: KLOR-CON PO SCH (09:02)
[2019-05-20] MEDS: MYCOSTATIN SUSP PO SCH (09:02)
[2019-05-20] MEDS: ZYVOX PO SCH (09:02)
[2019-05-20] MEDS: NORCO-5 PO PRN (09:03)
[2019-05-20] MEDS: CORDARONE PO SCH (09:03)
[2019-05-20] MEDS: LANTUS INSULIN SUBQ SCH (09:04)
--- NOTE | 2019-05-20 09:19 | DISCHARGE SUMMARY ---
ADMISSION DATE: 04/25/2019 DISCHARGE DATE: 05/20/2019 DISCHARGE DIAGNOSES: 1. Right lower lobe pneumonia. 2. Hyponatremia. 3. Hypokalemia. 4. Acute kidney injury. 5. Diabetes mellitus type 2. 6. Left third digit osteomyelitis, status post incision and drainage. 7. Right thigh abscess, status post incision and drainage. 8. Weakness in both legs, Guillain-[place] syndrome ruled out. CONSULTATIONS: 1. Dr. Jae Ariza from General Surgery. 2. Dr. Elliott from Neurology. 3. Dr. Mchugh from Pulmonary. 4. Dr. Dayady Bradshaw from Infectious Disease. PROCEDURES: 1. Chest x-ray done on admission showed right lower lobe pneumonia. 2. Chest CT showed moderate subsegmental atelectasis at the left lung base, and mild subsegmental atelectasis at the right lung base as described, although superimposed pneumonia is possible at the left lung is less likely. 3. Lumbar spine CT showed mild degenerative changes. 4. Lower extremity CT showed gas-forming cellulitis and early abscess formation in the subcutaneous fat of the medial right thigh as described. 5. Hand x-ray showed severe soft tissue swelling of the left middle finger, with a small lucent area in the distal phalanx of the middle finger, concerning for osteomyelitis. 6. Bone scan nuclear medicine showed confirmation of osteomyelitis in the left middle finger. 7. Lower extremity CT done 2 days before discharge shows subcutaneous abscess in the medial thigh, status post incision and drainage. HOSPITAL COURSE: The patient was admitted for the following diagnoses: 1. Right lower lobe pneumonia. The patient has been on Rocephin and azithromycin at admission with incentive spirometry every 4 hours and breathing treatment with DuoNeb every 4 hours as well. The patient was getting better from that condition. She received a total of 14 days of antibiotics, and from that condition, she is feeling okay. She is not requiring any oxygen supplementation, breathing completely fine, leukocytosis has almost resolved. 2. Right medial thigh abscess. The patient started noticing while she was here in the hospital, swelling of that leg, and the CT confirmed that diagnosis, so she had an incision and drainage performed by Dr. Raj Alvarez. Then, the patient was feeling fine. Morton drain is still removing some drainage. Dr. Bradshaw from Infectious Disease was following this patient, and decided to do another CT 2 days ago, which basically reveals that there is still a small subcutaneous abscess in the medial thigh that was considered not drainable surgically as per Dr. Alvarez, so at this point, medical treatment has been recommended. 3. Weakness of both lower extremities. Guillain-[place] was suspected. Dr. Elliott from Neurology has been following this patient. After followup of a few days, they concluded that it was diabetic peripheral neuropathy with subacute exacerbation, but likely not the etiology for her neuropathy. 4. Acute kidney injury. The patient received IV fluids, and renal function was a little bit elevated on discharge, with mildly depressed GFR. DISCHARGE PHYSICAL EXAMINATION: Vital Signs: Temperature 98.6 degrees, heart rate 98, respiratory rate 16, blood pressure 135/82, O2 saturation 100% on room air. General: This is a morbidly obese, 39-year-old, female, lying in bed in no acute distress. Cardiovascular: S1, S2 heard. No murmurs, gallops, or rubs. Regular rate and rhythm. Respiratory: Minimal coarse breath sounds noted in both pulmonary bases. The patient is not using any accessory muscles or having work of breathing. Abdomen: Soft, nontender to palpation. Bowel sounds present. No organomegaly. Extremities: No clubbing or cyanosis, but there is, in the right medial aspect of the thigh, induration that is covered by dressing. The left middle finger is still a little bit swollen, but still mildly painful to palpation. Neurological: The patient is alert and oriented x3. Moves all 4 extremities. DISCHARGE DISPOSITION: Home with self-care. The patient is going to be on IV antibiotics directed by Dr. Bradshaw. FOLLOWUP: 1. Follow up with Dr. Dayday Bradshaw in a couple weeks. 2. Follow up with Dr. Raj Alvarez in a couple weeks. DISCHARGE MEDICATIONS: 1. Cooper 5 mg 1 tablet p.o. every 4 hours as needed for pain. 2. Lantus 25 units subcutaneously daily. 3. Zofran ODT 4 mg every 4 hours as needed. 4. Metformin 500 mg 1 tablet p.o. b.i.d. 5. Potassium chloride 80 mEq p.o. daily. 6. Amiodarone 200 mg 1 tablet p.o. daily. 7. Glipizide 5 mg 1 tablet p.o. b.i.d. 8. Protonix 40 mg 1 tablet p.o. daily. 9. Atorvastatin 40 mg 1 tablet p.o. at bedtime. Antibiotics IV will be set up by Dr. Dayday Bradshaw TIME SPENT: Time discharging this patient was 40 minutes. cc: Salinas Enriquez MD M[place]
[2019-05-20 11:26] VITALS: BP 117/73
--- NOTE | 2019-05-20 14:41 | PROVIDER PROGRESS NOTE ---
Progress Note Dr. Mchugh Progress Note/Pulmonary and or critical care We appreciated progress of care, Complications, change in diagnosis, and instructions to patient. Subjective: We note the level of consciousness, bed (chair) position, family presence (if any), level of lethargy, feeling of symptoms, and changes from baseline condition/symptom. The patient is lying in bed with no acute distress noted. She is on room air and tolerates well. She states she is feeling better and ready to go home. She has no complaint at this time. Objective: Vital Signs: We reviewed EMR current values for Pulse rate, Blood pressure, Pulse rate, respiratory rate and Pulse oximetry. Also noted other values and trends if present (e.g. I/O, CVP). T 97.5, TX 99, RR 16, BP 117/73 and SaO2 98% on room air. Physical Examination: General: Morbidly obese. Lying in bed with no acute distress noted. HEENT: Atraumatic. Normocephalic. Trachea midline. Mucosa pink and moist. Chest: Even and unlabored. Symmetrical excursion. Auscultation reveals mild crackles bibasilarly. CVS: Mild tachycardia. Regular rate and rhythm with S1 and S2 appreciated. Abdomen: Obese. Non-tender. Soft. Normoactive bowel sounds in all 4 quadrants. Extremities: No pedal edema. Left 3rd finger swelling and thick yellow drainage around the nail bed. Neuro: A/O x3. Speech fluent. Follow commands. Labs and Radiology: Reviewed available labs and radiology values available at time of EMR review. CBC: mild leukocytosis (improving from yesterday), normocytic anemia. BMP: Mildly decreased carbon dioxide, elevated creatinine, mildly elevated glucose, mildly hypocalcemia, and low albumin levels. Assessment: Acute hypoxemic respiratory failure. Pneumonia with LLL moderate subsegmental atelectasis and RLL mild subsegmental atelectasis per CT on 05/03/19. Improving. LUE digit paronychia with osteomyelitis. Morbid obesity. Uncontrolled diabetes. Right medial thigh cellulitis with a large subcutaneous abscess s/p I&D on 05/07/19, culture growing gram-positive cocci. Acute on chronic kidney disease. Worsening. Plan: Continue current treatment and supportive care per admitting and other teams on the case. Antibiotics: ceftriaxone and linezolid per Dr. Bradshaw. Bronchodilators. Encourage incentive spirometer routinely. Appropriate DVT and GI prophylaxis. Discharge planning per Admitting MD. Input was appreciated from Admitting MD and other teams on the case.
--- NOTE | 2019-05-20 14:45 | GENERAL SURGERY PROGRESS NOTE ---
DATE: 05/20/2019 SUBJECTIVE: Plan is to let her go home on oral antibiotics. I removed her Jose drain. There is persistent induration but significant decrease in the level of tenderness and drainage from her wound. It appears clean with no necrosis. OBJECTIVE: LABORATORY DATA: White count 11, hematocrit 29, this is the best her white count has been. Creatinine is 1.4. This has been kind of fluctuating while she is here. Glucoses are better controlled. Her albumin is 2.6. I reviewed her blood culture. She has strep species growing out of both her finger and her thigh wound. PLAN: I would like to see her in a week for wound check. I removed the Jose drain today. Dr. Bradshaw has made recommendations with regards to antibiotics, and we will follow along. cc: Jose Daniel Alvarez MD
== END 2019-05-20 14:08 | disposition home or self-care (01) | DRG 853 ==
LOC: P.ED 19:06 → P.EDIPHOLD 22:25 → SUATTDRO 22:25 → 3N 05-05 23:40 → 2N 05-07 19:03 → 4N 05-10 14:29
PROVIDERS: ATTEND Internal Medicine